=== PATIENT | male | born 2000 | race Caucasian/White ===

== ENCOUNTER → 2021-06-06 12:02 | Outpatient (BNVA) | payer OTHER, SELFPAY | PROVIDERS: Visit Provider Nurse Practitioner Psychiatric/Mental Health | DX: Z03.89 Encounter for observation for other suspected diseases and conditions ruled out (principal) | CPT/HCPCS: 80053; 80061; 83036 ==

== ENCOUNTER → 2021-08-21 14:01 | Outpatient (BNVA) | payer MEDICARE, SELFPAY | PROVIDERS: Visit Provider Nurse Practitioner Psychiatric/Mental Health | DX: F31.81 Bipolar II disorder (principal); F41.1 Generalized anxiety disorder; G80.9 Cerebral palsy, unspecified | CPT/HCPCS: 99214 ==

== ENCOUNTER → 2021-10-16 14:14 | Outpatient (BNVA) | payer MEDICARE, SELFPAY | PROVIDERS: Visit Provider Nurse Practitioner Psychiatric/Mental Health | DX: F31.81 Bipolar II disorder (principal); F41.1 Generalized anxiety disorder; G80.9 Cerebral palsy, unspecified | CPT/HCPCS: 99214 ==

== ENCOUNTER → 2021-12-04 07:38 | Outpatient (BNVA) | payer MEDICARE, SELFPAY | PROVIDERS: Visit Provider Nurse Practitioner Psychiatric/Mental Health | DX: F31.81 Bipolar II disorder (principal); F41.1 Generalized anxiety disorder; G80.9 Cerebral palsy, unspecified | CPT/HCPCS: 99214 ==

== ENCOUNTER → 2022-01-08 12:30 | Outpatient (BNVA) | payer MEDICARE, SELFPAY | PROVIDERS: Visit Provider Social Worker | DX: F41.1 Generalized anxiety disorder (principal); F31.81 Bipolar II disorder | CPT/HCPCS: 90837 ==

== ENCOUNTER → 2022-01-22 07:28 | Outpatient (BNVA) | payer MEDICARE, SELFPAY | PROVIDERS: PCP Family Medicine Adult Medicine; Visit Provider Nurse Practitioner Psychiatric/Mental Health | DX: F31.81 Bipolar II disorder; F41.1 Generalized anxiety disorder; G80.9 Cerebral palsy, unspecified; Z03.89 Encounter for observation for other suspected diseases and conditions ruled out | CPT/HCPCS: 80053; 99214 ==

== ENCOUNTER → 2022-01-29 14:15 | Outpatient (BNVA) | payer MEDICARE, SELFPAY | PROVIDERS: PCP Family Medicine Adult Medicine; Visit Provider Social Worker | DX: F41.1 Generalized anxiety disorder (principal); F31.81 Bipolar II disorder | CPT/HCPCS: 90837; 90834 ==

== ENCOUNTER → 2022-02-14 07:18 | Outpatient (BNVA) | payer MEDICARE, SELFPAY | PROVIDERS: PCP Family Medicine Adult Medicine; Visit Provider Nurse Practitioner Psychiatric/Mental Health | DX: F31.81 Bipolar II disorder (principal); F41.1 Generalized anxiety disorder; G80.9 Cerebral palsy, unspecified; Z03.89 Encounter for observation for other suspected diseases and conditions ruled out | CPT/HCPCS: 99214 ==

== ENCOUNTER → 2022-02-15 12:08 | Outpatient (BNVA) | payer MEDICARE, SELFPAY | PROVIDERS: PCP Family Medicine Adult Medicine; Visit Provider Social Worker | DX: F41.1 Generalized anxiety disorder (principal); F31.81 Bipolar II disorder | CPT/HCPCS: 90834 ==

== ENCOUNTER → 2022-03-01 12:11 | Outpatient (BNVA) | payer MEDICARE, SELFPAY | PROVIDERS: PCP Family Medicine Adult Medicine; Visit Provider Social Worker | DX: F41.1 Generalized anxiety disorder (principal); F31.81 Bipolar II disorder | CPT/HCPCS: 90837; 90834 ==

== ENCOUNTER → 2022-03-15 14:04 | Outpatient (BNVA) | payer MEDICARE, SELFPAY | PROVIDERS: PCP Family Medicine Adult Medicine; Visit Provider Social Worker | DX: F41.1 Generalized anxiety disorder (principal); F31.81 Bipolar II disorder | CPT/HCPCS: 90837; 90834 ==

== ENCOUNTER → 2022-04-05 14:11 | Outpatient (BNVA) | payer MEDICARE, SELFPAY | PROVIDERS: PCP Family Medicine Adult Medicine; Visit Provider Social Worker | DX: F41.1 Generalized anxiety disorder (principal); F31.81 Bipolar II disorder | CPT/HCPCS: 90837; 90834 ==

== ENCOUNTER → 2022-04-23 07:22 | Outpatient (BNVA) | payer MEDICARE, SELFPAY | PROVIDERS: PCP Family Medicine Adult Medicine; Visit Provider Nurse Practitioner Psychiatric/Mental Health | DX: F31.81 Bipolar II disorder (principal); F41.1 Generalized anxiety disorder; G80.9 Cerebral palsy, unspecified | CPT/HCPCS: 99214 ==

== ENCOUNTER → 2022-07-03 10:06 | Outpatient (BNVA) | payer OTHER, SELFPAY | PROVIDERS: PCP Family Medicine Adult Medicine; Visit Provider Nurse Practitioner Psychiatric/Mental Health | DX: F31.81 Bipolar II disorder (principal); F41.1 Generalized anxiety disorder; Z79.899 Other long term (current) drug therapy | CPT/HCPCS: 80061; 83036 ==

== ENCOUNTER → 2022-12-17 13:37 | Outpatient (BNVA) | payer MEDICARE, SELFPAY ==
[2022-11-05 07:23] VITALS: BP 146/88; BMI 18.5
== END ==
PROVIDERS: PCP Family Medicine Adult Medicine; Visit Provider Nurse Practitioner Psychiatric/Mental Health
DX: Z79.899 Other long term (current) drug therapy (principal)
CPT/HCPCS: 80053; 80164

== ENCOUNTER → 2023-06-04 10:21 | Outpatient (BNVA) | payer OTHER, SELFPAY ==
[2023-03-17 08:03] VITALS: BP 146/88; BMI 18.5
== END ==
PROVIDERS: PCP Family Medicine Adult Medicine; Visit Provider Nurse Practitioner Psychiatric/Mental Health
DX: F31.81 Bipolar II disorder (principal)
CPT/HCPCS: 80061; 83036

== ENCOUNTER 2023-11-06 20:07 | Emergency (ER) | payer MEDICARE, SELFPAY ==
[2023-08-18 07:44] VITALS: BP 143/90; BMI 20.7
--- NOTE | 2023-11-06 20:08 | XRR_ITS ---
PROCEDURE INFORMATION: Exam: XR Chest Exam date and time: 11/06/2023 8:20 PM Age: 22 years old Clinical indication: Fever TECHNIQUE: Imaging protocol: Radiologic exam of the chest. Views: 1 view. COMPARISON: No relevant prior studies available. FINDINGS: Lungs: Unremarkable. No consolidation. Pleural spaces: Unremarkable. No pleural effusion. No pneumothorax. Heart/Mediastinum: Unremarkable. No cardiomegaly. Bones/joints: Unremarkable. XR/XR chest 1V portable [id number] IMPRESSION: No acute findings.
[2023-11-06 20:48] VITALS: BP 154/95; PULSE 117; RESP 16; TEMP 36.9; O2SAT 97
--- NOTE | 2023-11-06 21:13 | ED_ITS ---
HPI - General Adult General: Chief complaint: General Medical Stated complaint: sob cough nausea vomit Time Seen by Provider: 11/06/23 21:09 History of Present Illness: 22-year-old male patient comes in today for complaints of cough and concerns may be developing pneumonia. Patient has been ill for 4 days and feels better but continues to have cough. Patient appears nontoxic. Patient appears in no acute distress. Review of Systems General: Reports: 10 or more systems reviewed and unremarkable except in HPI and below Resp: Reports: non-productive cough PFSH ED PFSH: Medical History (Updated 11/06/23 @ 21:14 by CARMELA Arauz) Nausea and vomiting Psychiatric care Cerebral palsy Generalized anxiety disorder Bipolar II disorder Surgical History Hx of removal of testicle Right Orchiectomy at age 3. History of dental surgery Family History Other CAD (coronary artery disease) Hypertension Social History Smoking and tobacco/nicotine status: never used tobacco/nicotine Alcohol intake: never Substance/Drug Use: never Caregiver/support person: Yes Household members: family Physical Exam Const: COMMON NORMALS: alert HENMT: COMMON NORMALS: normocephalic HEAD & SCALP: normocephalic THROAT: posterior oropharynx normal Neck/C-Spine: COMMON NORMALS: full ROM Resp: COMMON NORMALS: normal respiratory effort and clear to auscultation bilaterally AUSCULTATION: clear to auscultation bilaterally Cardio: COMMON NORMALS: regular rate and regular rhythm RATE: regular rate RHYTHM: regular rhythm GI: COMMON NORMALS: non-tender Back/Pelvis: COMMON NORMALS: thoracic and lumbar spine normal to inspection Extremity: COMMON NORMALS: no pedal edema Neuro: SENSORIUM/ORIENTATION: Yes alert Skin: COMMON NORMALS: turgor normal GENERAL SKIN EXAM: turgor normal Course Vital Signs: Vital signs: Vital Signs Temperature 98.5 F 11/06/23 20:48 Pulse Rate 117 H 11/06/23 20:48 Respiratory Rate 16 11/06/23 20:48 Blood Pressure 154/95 11/06/23 20:48 Pulse Oximetry 97 11/06/23 20:48 MDM - General Adult Medical Decision Making 22-year-old male patient comes in today for complaints of cough. Patient has been ill for about 4 to 5 days with a flulike symptoms. Patient appears nontoxic. Patient appears well. Respirations are even lungs are clear to auscultation. Abdomen soft nontender. Skin is warm and dry. Differential diagnosis includes pneumonia, postviral cough, viral syndrome. Chest x-ray was normal. Patient probably has a postviral cough which will continue to resolve over the next few days. Reassured patient courage fluids rest and follow-up. Patient reported understanding and agreed to plan. Lab Data Radiology Impressions Chest X-Ray 11/06/23 20:08 IMPRESSION: No acute findings. All radiology interpretation(s) finalized by discharge Discharge Plan Discharge Patient Disposition: Home Clinical Impression: URI (upper respiratory infection) Qualifiers: URI type: unspecified URI Qualified Code(s): J06.9 - Acute upper respiratory infection, unspecified Condition: Stable Prescriptions: No Action quetiapine [Seroquel] 25 mg tablet 25 mg PO BID PRN (Reason: anxiety/agitation) Qty: 60 3RF Rx Instructions: May take one tablet twice per day as needed for anxiety/agitation quetiapine [Seroquel] 400 mg tablet 400 mg PO .9 pm Qty: 30 4RF Rx Instructions: Take one tablet at 9 pm divalproex [Depakote] 250 mg tablet,delayed release (DR/EC) 250 mg PO .7 pm Qty: 30 4RF Rx Instructions: Take one tablet at 7 pm hydroxyzine HCl 10 mg tablet 10 mg PO Q6H PRN (Reason: nausea/vomiting) Qty: 30 0RF Discharge Orders: Discharge ED (Routine); Ordered 11/06/23 Ordered By: Michael Crespo Referrals: Gurvinder Gallegos MD [Primary Care Provider] - [facility] [Family Provider] - Discharge Diet: Usual diet Discharge Activity: Increase activity as tolerated Patient Instructions: Viral Syndrome (ED) Activity Restrictions/Additional Instructions: Drink plenty of water and fluids. Use acetaminophen and ibuprofen for pain and fever. The cough may persist for a full week after the acute phase of the flu. I would expect over the next 5 to 6 days she should start having continued improvement. Follow-up with primary care as needed. Return to ED for worsening symptoms such as high fever greater than 100.4, increased shortness of breath, or new concerns. Coding Level of Care Code ED Food And Drug Inspector for [facility] [facility]
== END 2023-11-06 21:39 | disposition home or self-care (01) ==
PROVIDERS: Emergency Provider Nurse Practitioner Family; PCP Family Medicine Adult Medicine
DX: J06.9 Acute upper respiratory infection, unspecified (principal); G80.9 Cerebral palsy, unspecified
CPT/HCPCS: 71045; 99283

== ENCOUNTER 2024-04-04 21:27 | Inpatient (IN) | payer MEDICARE, MEDICAID, SELFPAY ==
[2023-08-18 07:44] VITALS: BP 143/90; BMI 20.7
[2024-04-04 21:31] VITALS: BP 148/93; PULSE 90; RESP 18; TEMP 36.7; O2SAT 98; BMI 17.6
--- NOTE | 2024-04-04 21:34 | ED.C_ITS ---
HPI - Psych 2 General: Chief Complaint: Psychiatric Symptoms Stated Complaint: DEPRESSION Time Seen by Provider: 04/04/24 21:28 Source: patient Mode of arrival: ambulatory Limitations: no limitations History of Present Illness: 23-year-old male who states he has histo ry of severe depression he is on Seroque for this states he been having worsening depression he denies any SI or HI but states he feels like he needs to get help before he does something. He denies any worse improved factors.l Associated symptoms: Reports depression Review of Systems 2 Const: Denies: fever(s), chills, body aches or change in appetite ENMT: Denies: throat pain or dental pain Card: Denies: chest pain Resp: Denies: dyspnea GI: Denies: abdominal pain, nausea, vomiting or diarrhea : Denies: dysuria Musc: Denies: neck pain or back pain Skin/Breast: Denies: rash Neuro: Denies: headache(s) Psych: Reports: depression PFSH ED 2 PFSH: Medical History Bereavement loss of mother on 01/08/24 Nausea and vomiting Psychiatric care Cerebral palsy Generalized anxiety disorder Bipolar II disorder Surgical History Hx of removal of testicle Right Orchiectomy at age 3. History of dental surgery Family History Other CAD (coronary artery disease) Hypertension Social History Smoking and tobacco/nicotine status: never used tobacco/nicotine Alcohol intake: never Substance/Drug Use: never Caregiver/support person: Yes Household members: family Physical Exam 2 Const: COMMON NORMALS: no acute distress, patient oriented x3 and healthy appearing HENMT: COMMON NORMALS: normocephalic and atraumatic HEAD & SCALP: n ormocephalic and atraumatic Neck/C-Spine: COMMON NORMALS: full ROM and supple Chest: COMMONS NORMALS: normal inspection of the chest Resp: COMMON NORMALS: normal respiratory effort Cardio: COMMON NORMALS: regular rate, regular rhythm and No murmurs present (Cardio) RATE: regular rate RHYTHM: regular rhythm GI: COMMON NORMALS: Normal to inspection, nondistended, normoactive bowel sounds present, Soft to palpation, non-tender and no masses PALPATION: Yes Soft to palpation Extremity: COMMON NORMALS: normal to inspection and full ROM Neuro: COMMON NORMALS: patient oriented x3, moves all extremities and no focal motor deficits Psych: COMMON NORMALS: mental status grossly normal, Normal thought process present and cooperative MOOD & AFFECT: Yes depressed mood THOUGHT PROCESS: Normal thought process present Skin: COMMON NORMALS: no rashes or lesions noted and no wounds GENERAL SKIN EXAM: no rashes or lesions noted Course 2 Vital Signs: Vital signs: Vital Signs Temperature 97.8 F 04/04/24 23:10 Pulse Rate 77 04/04/24 23:10 Respiratory Rate 18 04/04/24 23:10 Blood Pressure 133/86 04/04/24 23:10 Pulse Oximetry 100 04/04/24 23:10 Oxygen Delivery Me thod Room Air 04/04/24 23:10 MDM - Psych Medical Decision Making Patient presents here with depression he voluntarily wants to be admitted for his depression he is medically cleared I spoke to psychiatrist will admit Medical Records I reviewed the patient's medical records. Lab Data I reviewed the patient's lab results. 04/04/24 22:02 04/04/24 22:02 No radiology studies performed this visit Discharge Plan Discharge Patient Disposition: Admitted As Inpatient Admit Provider: Raoul Arreola Clinical Impression: Depression Condition: Stable Coding Level of Care Code ED Supervisor [employer] for [facility]
[2024-04-04 22:13] LABS: Basophils % 0.4 %; Eosinophils # 0.1 10^3/uL (0.0-0.8); Eosinophils % 0.7 %; Hematocrit 44.2 % (37-53); Lymphocytes # 2.1 10^3/uL (0.8-4.8); Lymphocytes % 20.9 %; Mean Corpuscular HGB Conc 34.2 g/dL (30-55); Mean Corpuscular Hemoglobin 31.4 pg (27-33); Mean Corpuscular Volume 91.9 fl (82-101); Mean Platelet Volume 9.3 fL (7.4-10.4); Monocytes # 0.5 10^3/uL (0.2-0.9); Monocytes % 5.4 %; Neutrophils # 7.12 10^3/uL (1.8-7.7); Neutrophils % 72.4 %; Nucleated Red Blood Cells % 0 %; Platelet Count 286 10^3/cmm (157-399); Red Blood Count 4.81 10^6/uL (3.85-5.65); Red Cell Distribution Width 12.8 % (12.1-15.1); White Blood Count 9.83 10^3/uL (3.29-11.43)
[2024-04-04 22:23] LABS: Alanine Aminotransferase 13 U/L (0-41); Albumin Level 4.6 g/dL (3.5-5.2); Alkaline Phosphatase 103 U/L (40-130); Anion Gap 15.4 (5-19); Aspartate Amino Transferase 16 U/L (0-40); Blood Urea Nitrogen 12 mg/dL (6-20); Calcium 9.1 mg/dL (8.5-10.5); Carbon Dioxide 27 mmol/L (22-29); Chloride 105 mmol/L (98-107); Creatinine Clr Calc Pharmacy 120.0586; Globulin 3.3 g/dL (1.3-4.6); Glomerular Filtration Rate 137.4 mL/min (90-130); Glucose 86 mg/dL (65-115); Osmolality Calculated 297 mOsm/kg (285-295); Potassium 3.4 mmol/L (3.5-5.1); Sodium 144 mmol/L (136-145); Total Bilirubin 0.4 mg/dL (0.15-1.2); Total Protein 7.9 g/dL (6.6-8.7)
[2024-04-04 22:37] LABS: Acetaminophen < 5.0 ug/mL (10-30); Alcohol Level < 10 mg/dL (0-10); Salicylate < 0.3 mg/dL (3-10)
[2024-04-04 23:10] VITALS: BP 133/86; PULSE 77; RESP 18; TEMP 36.6; O2SAT 100
[2024-04-04 23:27] LABS: Amphetamines Screen Urine Negative (Negative); Barbiturates Screen Urine Negative (Negative); Benzodiazepines Screen Urine Negative (Negative); Cocaine Screen Urine Negative (Negative); Opiate Screen Urine Negative (Negative); PCP Screen Urine Negative (Negative); THC Screen Urine Negative (Negative)
[2024-04-04] MEDS: quetiapine 100 mg Tablet 400 MG PO (23:27)
[2024-04-04] MEDS: divalproex ER 250 mg Tablet (24H) PO (23:27)
[2024-04-05 06:00] VITALS: BP 97/63; PULSE 72; RESP 16; O2SAT 98
--- NOTE | 2024-04-05 08:34 | PC.NURSE ---
Patient denies avh and si/hi. He states his depression this morning is somewhere in the middle. Patient says at one time he did take prozac for depression, but that it has been some time since then.
[2024-04-05 14:00] VITALS: BP 119/77; PULSE 96; RESP 18; TEMP 36.6; O2SAT 97
--- NOTE | 2024-04-05 16:13 | W.PM.NPUH&PS ---
Providers/Chief Complaint Admitting Physician: Raoul Arreola MD Primary Care Provider: Gurvinder Gallegos MD Chief Complaint: DEPRESSION HPI NPU History of Present Illness Luis Tapia is a 23 year old male with a history of bipolar 2 disorder who presented to the emergency department stating that he was having worsening depression and stated that he was not able to handle things at home. Patient was admitted to the neuropsychiatric unit for further evaluation and treatment. He reports that he has been more depressed since his mother in December of this year. He reports that he has been isolating himself. He states that he has been having more sadness as he cries all of the time. He reports that that he has low energy and states that his mood has been getting worse nearly every week despite him reporting compliance with his medications. He denies any drug or alcohol use. He was admitted to the neuropsychiatric unit for further evaluation and treatment. He had reported that he had thoughts of suicide and stated that he did not care if he was alive or . He reports that his mood has been down for several months. He had endorsed having periods of time in the past where he would be up for 3 to 4 days at a time and had racing thoughts and increased periods of irritability. Previous records had indicated that the patient had periods of time where he would have decreased need for sleep, productive speech and increased irritability and violent outburst along with destruction of property. He had denied any hypomanic symptoms recently. He reports no change in appetite. He does report that he frequently feels tired and does not wake up feeling refreshed. He reports that he will sleep all day. He reports that he has been crying more frequently. He denies any psychotic symptoms. He denies any history of recent destruction of property. Inpatient psychiatric history: Patient reports 3 previous inpatient psychiatric hospitalizations to having occurred in 2017 on the neuropsychiatric unit here in [facility]. Outpatient psychiatric history: He follows Maddie Venegas for medication management at [facility]. Current diagnoses includes intermittent explosive disorder, and bipolar 2 disorder. Drug and alcohol history: None reported Medical history: Cerebral palsy Surgical history: Right orchiectomy, history of dental surgery, history of tendon elongation in March 2011 Current medications: Seroquel 400 mg at night Allergies: No known drug allergies Legal history: admits past history of arrested for domestic violence in 2017, completed successfully 40 hours of community service and anger management classes and paid $500 fine. Family psychiatric history: Maternal: Grandmother-Bipolar Mother-Depression, anxiety, Panic attacks with Agoraphobia, PTSD ,Twin sister-depression and anxiety ,Brother-depression and anxiety Social history: Patient reports that he had been born in [place] and was raised by his mother. He had reported that he had been diagnosed with cerebral palsy. He had received special education services and received his diploma from [employer] [employer] later while receiving additional services for his learning disability. He has 1 older brother. He currently lives in [facility] with his sister. He had reported living with his mother most of his life until her in December 2023. He had minimized any history of sexual physical or emotional abuse. 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 Meds NPU Home Medications Medication Instructions Recorded Confirmed Last Taken Type hydroxyzine HCl 10 mg tablet 10 mg PO Q6H PRN nausea/vomiting 03/04/24 04/04/24 Unknown Rx #90 tabs quetiapine 25 mg tablet (Seroquel) 25 mg PO BID PRN anxiety/agitation 03/17/24 04/04/24 Unknown Rx #60 tabs quetiapine 400 mg tablet (Seroquel) 400 mg PO .9 pm #30 tabs 03/17/24 04/04/24 Unknown Rx divalproex 250 mg tablet,extended 250 mg PO BEDTIME 04/04/24 04/04/24 Unknown History release 24 hr (Depakote ER) Allergies Allergy/AdvReac Type Severity Reaction Status Date / Time No Known Allergies Allergy Verified 04/04/24 21:35 PFS NPU PFSH: Medical History Bereavement loss of mother on 01/08/24 Nausea and vomiting Psychiatric care Cerebral palsy Generalized anxiety disorder Bipolar II disorder Surgical History Hx of removal of testicle Right Orchiectomy at age 3. History of dental surgery Family History Other CAD (coronary artery disease) Hypertension Social History Smoking and tobacco/nicotine status: never used tobacco/nicotine Alcohol intake: never Substance/Drug Use: never Caregiver/support person: Yes Household members: family Mental Status Exam MSE Comments: Patient was alert and oriented to person place and time. There was extreme psychomotor retardation noted. He had fleeting eye contact. His speech was monotone and normal in volume with decreased rate. There was no evidence of any abnormal involuntary motor movements tics or tremors appreciated. His mood was described as depressed. His affect was restricted in range and mood congruent. His thought process was linear logical and goal-directed. His thought content showed no evidence of active homicidal or suicidal ideation. His attention span appeared poor. There was no clear evidence of delusional thinking. He did not appear to be responding to internal stimuli. His insight is impaired. His judgment is poor. His impulse control appeared limited. His recent and remote memory appear grossly intact. Vitals/I&O/Wt Last Vital Signs Temp 97.8 F 04/05/24 14:00 Pulse 96 04/05/24 14:00 Resp 18 04/05/24 14:00 BP 119/77 04/05/24 14:00 Pulse Ox 97 04/05/24 14:00 O2 Del Method Room Air 04/05/24 14:00 04/05/24 04/05/24 04/05/24 06:59 14:59 22:59 Intake Total 960 / 960 Balance 960 / 960 Weight last 48 hrs Weight 52.617 kg Data NPU 04/04/24 22:02 04/04/24 22:02 A&P Assessment and plan (1) Depression: (2) Bipolar II disorder: Plan 23-year-old male with CP with past history of hypomanic symptoms currently endorsing severe depression appears to be worse since the of his mother in December 2023. #1. ?Engage patient in individual milieu and group therapy. #2?? Recommend sober living treatment at the highest level of care to which the patient is willing to commit #3??? Restart Seroquel 400mg at night and add Wellbutrin xl 150mg daily to target depression. #4?? TO-15 minute checks? #5?? Will attempt to gather collateral information Involuntary Hold Information 96 Hour Hold: 96 Hour Involuntary Admission: No Attestations NPU Medical Necessity Statement*: Inpatient hospitalization is medically necessary and deemed to ?be ?the clinically appropriate intervention ?at this time.? We will monitor/initiate medications and make changes as indicated.? The patient will be in the hospital for over 2 midnights.? The patient?s likely length of stay 7-10 days. Coding Level of Care Code Acute Code for [facility] Fwd Diagnoses Depression F32.A Bipolar II disorder F31.81
[2024-04-05] MEDS: quetiapine 100 mg Tablet 400 MG PO (20:32)
[2024-04-05 21:02] VITALS: BP 119/80; PULSE 88; RESP 18; TEMP 36.4; O2SAT 98
[2024-04-05] MEDS: hyDROXYzine 25 mg Capsule 50 MG PO (21:26)
[2024-04-05] MEDS: trazodone 50 mg Tablet PO (21:26)
[2024-04-06 06:00] VITALS: BP 117/80; PULSE 96; RESP 17; TEMP 36.5; O2SAT 97
[2024-04-06] MEDS: buPROPion XL (24 HR) 150 mg Tablet PO (09:27)
[2024-04-06] MEDS: OLANZapine 5 mg ODT PO (12:51)
[2024-04-06] MEDS: hyDROXYzine 25 mg Capsule 50 MG PO (13:24)
[2024-04-06 14:00] VITALS: BP 109/73; PULSE 96; RESP 16; TEMP 36.4; O2SAT 97
--- NOTE | 2024-04-06 15:10 | P.NPUPN_ITS ---
Subjective NPU 2 Subjective: 23-year-old male with bipolar disorder a dmitted with depression and suicidal ideation. The patient had continued to report that he was grieving the of his mother earlier this year. He had appeared quite anxious on the unit. He continued to report being depressed. He had reported struggles with feeling lonely and feeling bored. He had stated that his energy had been low. He had acknowledged having periods of aggression and agitation with decreased need for sleep as previously stated suggestive of ney. The patient was compliant on the milieu but appeared to perseverate about needing to go home despite stating that he was having thoughts of hurting himself. Mental Status Exam 2 MSE Comments: Patient was alert and oriented to person place and time. There was extreme psychomotor retardation noted. He had fleeting eye contact. His speech was monotone and normal in volume with decreased rate. There was no evidence of any abnormal involuntary motor movements tics or tremors appreciated. His mood was described as depressed. His affect was restricted in range and mood congruent. His thought process was linear logical and goal-directed. His thought content showed no evidence of active homicidal although he reported passive suicidal thoughts. His attention span appeared poor. There was no clear evidence of delusional thinking. He did not appear to be responding to internal stimuli. His insight is impaired. His judgment is poor. His impulse control appeared impaired. His recent and remote memory appear grossly intact. Vitals/I&O/Wt Last Vital Signs Temp 97.5 F L 04/06/24 14:00 Pulse 96 04/06/24 14:00 Resp 16 04/06/24 14:00 BP 109/73 04/06/24 14:00 Pulse Ox 97 04/06/24 14:00 O2 Del Method Room Air 04/06/24 14:00 Weight last 48 hrs Weight 52.617 kg Data NPU 04/04/24 22:02 04/04/24 22:02 A&P Assessment and plan (1) Depression: (2) Bipolar II disorder: Plan 23-year-old male with CP with past history of hypomanic symptoms currently endorsing severe depression appears to be worse since the of his mother in December 2023. #1. ?Engage patient in individual milieu and group therapy. #2?? Recommend sober living treatment at the highest level of care to which the patient is willing to commit #3???Increase seroquel to 500mg at night and continue Wellbutrin xl 150mg daily to target depression. #4?? TO-15 minute checks? #5?? Will attempt to gather collateral information Involuntary Hold Information 2 96 Hour Hold: 96 Hour Involuntary Admission: No Attestations NPU 2 Medical Necessity Statement*: Inpatient hospitalization is medically necessary and deemed to ?be ?the clinically appropriate intervention ?at this time.? We will monitor/initiate medications and make changes as indicated.? ? The patient?s likely length of stay is 3-5 days. Coding Level of Care Code Acute Code for [facility] Fwd Diagnoses Depression F32.A Bipolar II disorder F31.81
[2024-04-06] MEDS: CLONazepam 0.5 mg Tablet PO (15:41)
[2024-04-06 20:00] VITALS: BP 144/84; PULSE 97; RESP 20; TEMP 36.7; O2SAT 99
[2024-04-06] MEDS: quetiapine 100 mg Tablet 500 MG PO (20:47)
[2024-04-06] MEDS: trazodone 50 mg Tablet PO (20:47)
[2024-04-06 22:00] VITALS: BP 144/84; PULSE 97; RESP 20; TEMP 36.7; O2SAT 99
[2024-04-07 06:00] VITALS: BP 108/66; PULSE 86; RESP 18; TEMP 36.4; O2SAT 98
[2024-04-07] MEDS: buPROPion XL (24 HR) 150 mg Tablet PO (08:12)
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
[2024-04-07 13:27] VITALS: BP 108/66; PULSE 86; RESP 18; TEMP 36.4; O2SAT 98
--- NOTE | 2024-04-07 13:29 | DCPLANNER ---
IMM completed 04/07/24 @ 1:28pm. Pt was given a copy of his rights and he stated he understood his rights.
== END 2024-04-07 14:44 | disposition home or self-care (01) | DRG 885 ==
LOC: ER 22:16 → NP 22:30
PROVIDERS: Admitting Provider Psychiatry & Neurology Psychiatry; Emergency Provider Emergency Medicine; PCP Family Medicine Adult Medicine; Visit Provider Psychiatry & Neurology Psychiatry
DX: F31.81 Bipolar II disorder (principal); Z63.4 Disappearance and death of family member
CPT/HCPCS: 36415; 80053; 80306; 80307; 85025; 97150; 97165; 99285

== ENCOUNTER 2024-04-23 07:06 | Inpatient (IN) | payer MEDICARE, MEDICAID, SELFPAY ==
[2023-08-18 07:44] VITALS: BP 143/90; BMI 20.7
[2024-04-23 07:06] VITALS: BP 131/81; PULSE 95; TEMP 36.8; O2SAT 98; BMI 17.6
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
[2024-04-23] MEDS: divalproex DR 250 mg Tablet PO ×2 (07:59→19:27)
[2024-04-23] MEDS: quetiapine 25 mg Tablet 50 MG PO (07:59)
[2024-04-23 08:08] LABS: Basophils % 0.4 %; Eosinophils # 0.1 10^3/uL (0.0-0.8); Eosinophils % 0.9 %; Hematocrit 42.5 % (37-53); Lymphocytes # 1.1 10^3/uL (0.8-4.8); Lymphocytes % 10.4 %; Mean Corpuscular HGB Conc 33.9 g/dL (30-55); Mean Corpuscular Hemoglobin 31.4 pg (27-33); Mean Corpuscular Volume 92.6 fl (82-101); Mean Platelet Volume 9.3 fL (7.4-10.4); Monocytes # 0.8 10^3/uL (0.2-0.9); Monocytes % 7.5 %; Neutrophils # 8.26 10^3/uL (1.8-7.7); Neutrophils % 80.6 %; Nucleated Red Blood Cells % 0 %; Platelet Count 291 10^3/cmm (157-399); Red Blood Count 4.59 10^6/uL (3.85-5.65); Red Cell Distribution Width 12.5 % (12.1-15.1); White Blood Count 10.25 10^3/uL (3.29-11.43)
[2024-04-23 08:27] LABS: Alanine Aminotransferase 12 U/L (0-41); Albumin Level 4.4 g/dL (3.5-5.2); Alkaline Phosphatase 105 U/L (40-130); Anion Gap 15.5 (5-19); Aspartate Amino Transferase 15 U/L (0-40); Blood Urea Nitrogen 15 mg/dL (6-20); Calcium 9.2 mg/dL (8.5-10.5); Carbon Dioxide 26 mmol/L (22-29); Chloride 103 mmol/L (98-107); Creatinine Clr Calc Pharmacy 140.0684; Globulin 3.2 g/dL (1.3-4.6); Glomerular Filtration Rate 164.2 mL/min (90-130); Glucose 106 mg/dL (65-115); Osmolality Calculated 293 mOsm/kg (285-295); Potassium 3.5 mmol/L (3.5-5.1); Sodium 141 mmol/L (136-145); Total Bilirubin 0.5 mg/dL (0.15-1.2); Total Protein 7.6 g/dL (6.6-8.7)
[2024-04-23 08:38] LABS: Acetaminophen < 5.0 ug/mL (10-30); Salicylate < 0.3 mg/dL (3-10)
--- NOTE | 2024-04-23 08:50 | PC.NURSE ---
PATIENT RESTING COMFORTABLY IN BED WITH EVEN AND UNLABORED RESPIRATIONS.
--- NOTE | 2024-04-23 09:13 | PC.NURSE ---
[facility] CALLED AND STATED THAT PATIENT IS WILLING TO GO TO [facility]. DFS WOULD LIKE HOSPITAL HELP IN GETTING PATIENT TO FILL OUT PAPERWORK FOR FACILITY. THIS NURSE VERBALIZED THAT PATIENT WAS BEING ADMITTED TO [facility] AND WOULD RELAY INFORMATION AND START PROCESS. [phone],
--- NOTE | 2024-04-23 10:13 | PC.NURSE ---
96 hour hold rights read and reviewed with patient. Patient verbalized understandings. Copy of rights given to patient.
[2024-04-23 10:38] VITALS: BP 113/68; PULSE 72; RESP 18; TEMP 36.6; O2SAT 98
[2024-04-23 14:00] VITALS: BP 119/74; PULSE 118; RESP 20; TEMP 36.9; O2SAT 99
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
--- NOTE | 2024-04-23 19:24 | PC.NURSE ---
Pt's temperature is elevated during vital signs and tech rounding, Pt came to desk and also mentioned his throat is sore. Pt has slightly muffled voice. RN to assess further. Pt given PRN tylenol to treat elevated temperature.
[2024-04-23] MEDS: acetaminophen 325 mg Tablet 650 MG PO (19:27)
[2024-04-23 20:06] LABS: Rapid Strep A Test Negative (Negative)
[2024-04-23 20:23] VITALS: TEMP 37.6
[2024-04-23 21:46] VITALS: BP 113/73; PULSE 122; RESP 18; TEMP 38.4; O2SAT 98
[2024-04-23 22:12] LABS: Adenovirus Not Detected (NOT DETECT); Chlamydia Pneumoniae Not Detected (NOT DETECT); Coronavirus 229E,HKU1,NL63,OC4 Not Detected (NOT DETECT); Human Metapneumovirus Not Detected (NOT DETECT); Human Rhinovirus/Enterovirus Not Detected (NOT DETECT); Influenza A Not Detected (NOT DETECT); Influenza A H1 Not Detected (NOT DETECT); Influenza A H1-2009 Not Detected (NOT DETECT); Influenza A H3 Not Detected (NOT DETECT); Influenza B Not Detected (NOT DETECT); Mycoplasma Pneumoniae Not Detected (NOT DETECT); Parainfluenza Virus Type 1 Not Detected (NOT DETECT); Parainfluenza Virus Type 2 Not Detected (NOT DETECT); Parainfluenza Virus Type 3 Not Detected (NOT DETECT); Parainfluenza Virus Type 4 Not Detected (NOT DETECT); Respiratory Syncytial Virus A Not Detected (NOT DETECT); Respiratory Syncytial Virus B Not Detected (NOT DETECT)
[2024-04-23 22:22] LABS: SARS-COV-2 Detected (NOT DETECT)
--- NOTE | 2024-04-24 00:02 | PC.NURSE ---
Still awaiting transfer in-house/discharge orders for this Pt to be transported to another unit. Pt observed to be sleeping in his Pt bed. Pt has no needs at this time
--- NOTE | 2024-04-24 00:59 | XRR_ITS ---
PROCEDURE INFORMATION: Exam: XR Chest Exam date and time: 04/24/2024 11:47 AM Age: 23 years old Clinical indication: Cough; Additional info: Fever, covid TECHNIQUE: Imaging protocol: Radiologic exam of the chest. Views: 1 view. COMPARISON: CR XR chest 1V portable [id number] 11/06/2023 8:20 PM FINDINGS: Lungs: Unremarkable. No consolidation or mass. Pleural spaces: Unremarkable. No pleural effusion. No pneumothorax. Heart/Mediastinum: Unremarkable. No cardiomegaly. Bones/joints: Unremarkable. XR/XR chest 1V portable [id number] IMPRESSION: No acute findings.
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
--- NOTE | 2024-04-24 02:07 | PC.NURSE ---
This RN from NPU gave a nursing handoff report to BRANT Brown/STAY CUTTER (?) from [facility].
[2024-04-24 02:45] VITALS: PULSE 119; RESP 20; TEMP 38.1; O2SAT 98
--- NOTE | 2024-04-24 02:54 | PC.NURSE ---
Patient off unit to med surg with RN and security
[2024-04-24 03:00] VITALS: BP 109/59; PULSE 122; RESP 18; TEMP 38; O2SAT 98
[2024-04-24] MEDS: acetaminophen 325 mg Tablet 650 MG PO (04:04)
[2024-04-24 04:20] VITALS: BP 100/44; PULSE 116; RESP 22; TEMP 38.7; O2SAT 97
[2024-04-24 06:00] LABS: C Reactive Protein 27.9 mg/L (0.0-4.9)
--- NOTE | 2024-04-24 10:05 | P.PN_ITS ---
Subjective 2 Subjective: Patient is not requiring oxygen Tachycardic fever Requiring one-to-one supervision Patient not endorsing chest pain, diarrhea, endorsing muscle aches Vitals/I&O/Wt Last Vital Signs Temp 101.7 F H 04/24/24 04:20 Pulse 116 H 04/24/24 04:20 Resp 22 H 04/24/24 04:20 BP 100/44 04/24/24 04:20 Pulse Ox 97 04/24/24 04:20 O2 Del Method Room Air 04/24/24 04:20 04/23/24 04/24/24 04/24/24 22:59 06:59 14:59 Intake Total 240 / 240 Balance 240 / 240 Weight last 48 hrs Weight 54.885 kg Weight 52.617 kg Physical Exam 2 Narrative: Pleasant cooperative laying supine Has reported allergy Muscle mass loss Sarcopenia GCS 15 Nonfocal neuroexam S1, S2 tachycardia Clinically looks dehydrated Abdomen soft Data 04/23/24 08:00 04/23/24 08:00 Micro: Microbiology 04/24/24 07:35 Blood Culture - Preliminary Blood SPECIMEN COLLECTED 04/24/24 07:40 Blood Culture - Preliminary Blood SPECIMEN COLLECTED A&P Assessment and plan (1) Bipolar II disorder: (2) Generalized anxiety disorder: (3) Nausea and vomiting: Qualifiers: Vomiting type: psychogenic vomiting Qualified Code(s): 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.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 (4) COVID-19: (5) Cerebral palsy: Qualifiers: Cerebral palsy type: unspecified type Qualified Code(s): G80.9 - Cerebral palsy, unspecified (6) Bereavement: Plan COVID-19 Not requiring oxygen I will start Decadron, patient was dehydrated Start IV fluids for 10 hours Low blood pressure noted as well I will also add Augmentin for prophylactic bacterial infection Full code Regular diet History of cerebral palsy no active pain His senior living placement will be delayed he has to remain afebrile for 48 hours without antipyretics noted to go back to facility Attestations 2 Medical Necessity Statement*: Continue medical management Diagnoses Bipolar II disorder F31.81 Generalized anxiety disorder F41.1 Psychogenic vomiting with nausea F50.89 Vomiting type: psychogenic vomiting COVID-19 U07.1 Cerebral palsy, unspecified type G80.9 Cerebral palsy type: unspecified type Bereavement Z63.4
[2024-04-24] MEDS: dexamethasone 10 mg/mL INJ 6 MG PO (11:11)
[2024-04-24] MEDS: sodium chloride 0.9% 1,000 ML 100 ML IV ×2 (11:11→20:36)
[2024-04-24 12:00] VITALS: BP 87/45; PULSE 114; RESP 17; TEMP 37.6; O2SAT 98
[2024-04-24 16:54] LABS: Bilirubin Urine Neg (Negative); Blood Urine Trace (Negative); Glucose Urine UA Norm (Normal); Ketones Urine 1+ (Negative); Leukocyte Esterase Urine Negative (Negative); Nitrate Urine Negative (Negative); Protein Urine Trace (Negative); Specific Gravity, Urine 1.015 (1.005-1.030); Urine Appearance Clear (CLEAR); Urine Color Dark Yellow (Yellow); Urobilinogen Urine 1 mg/dL (Negative); pH Urine 6.5 (5-7)
[2024-04-24 16:55] LABS: Add Urine Culture? No; Add Urine Microscopic? YES; Bacteria Urine TRACE /hpf; Mucus Urine 2+ /hpf; RBC Urine RARE /hpf (0-2); WBC Urine 0-4 /hpf (0-5)
[2024-04-24 17:44] VITALS: BP 109/71; PULSE 99; RESP 16; TEMP 37; O2SAT 97
[2024-04-24] MEDS: amoxicillin-clav 875-125 mg Tablet 1 TAB PO (17:44)
[2024-04-24] MEDS: divalproex DR 250 mg Tablet PO (17:44)
--- NOTE | 2024-04-24 19:08 | W.PM.NPUPNS ---
Subjective NPU Subjective: 23-year-old male with bipolar disorder admitted with depression and suicidal ideation with noncompliance to his medication and currently awaiting placement at Residential facility. Patient has COVID and was seen on Med/Surgical unit. The patient reported no side effects. He reported his mood has been better. He had reported that he struggled with being compliant with his medications despite it helping him. Mental Status Exam MSE Comments: This is an underweight white male in hospital bed with adequate grooming and limited eye contact. No abnormal movements except for a somewhat characteristic stride consistent with CP with limited contracture notable in hands. Mild psychomotor retardation noted. Cooperative with exam in mild distress. Speech was slightly decreased rate and volume with some characteristic fullness of tongue. Mood described as good. His affect was flat. Thought process organized. Thought content: Patient denies suicidal or homicidal ideation, there were no delusions reported or noted, he denied any auditory or visual hallucinations. Attention and concentration appeared intact and memory appeared mostly reliable but none were formally tested. He is alert and oriented x 3. Insight and judgment appear fair impulse control is limited. Vitals/I&O/Wt Last Vital Signs Temp 98.6 F 04/24/24 17:44 Pulse 99 04/24/24 17:44 Resp 16 04/24/24 17:44 BP 109/71 04/24/24 17:44 Pulse Ox 97 04/24/24 17:44 O2 Del Method Room Air 04/24/24 17:44 04/24/24 04/24/24 04/24/24 06:59 14:59 22:59 Intake Total 480 / 480 540 / 1020 Balance 480 / 480 540 / 1020 Weight last 48 hrs Weight 54.885 kg Weight 52.617 kg Data NPU 04/23/24 08:00 04/23/24 08:00 Micro: Microbiology 04/24/24 07:35 Blood Culture - Preliminary Blood SPECIMEN COLLECTED 04/24/24 07:40 Blood Culture - Preliminary Blood SPECIMEN COLLECTED Microbiology 04/24/24 07:35 Blood Blood Culture - Preliminary SPECIMEN COLLECTED 04/24/24 07:40 Blood Blood Culture - Preliminary SPECIMEN COLLECTED A&P Assessment and plan (1) Depression: (2) Bipolar II disorder: (3) Generalized anxiety disorder: (4) Bereavement: (5) Cerebral palsy: Qualifiers: Cerebral palsy type: unspecified type Qualified Code(s): G80.9 - Cerebral palsy, unspecified Plan 23-year-old male with CP with a significant history of mental health issues which have reportedly gotten worse since the of his mother in December 2023 returns after having been off of his medication for an unclear amount of time since his discharge a couple weeks ago who presents to be restarted on his medications and likely transfer to his residential care facility that has been obtained. The patient appears to struggle with maintaining a regular pattern of taking his medication, attributing this to forgetfulness and tiredness. This has developed into a bad habit of medication management. The patient's main issue appears to be irregular intake of his prescribed medication, which has led to conflicts and aggressive behavior. He has been accepted into an independent living facility, which may provide a more structured environment for him. 1. ?Increase seroquel to 300mg at night with plan to increase to 400mg tommorow. Continue Depakote. 2.?? Will attempt to gather collateral information 3.???[facility] bed available now. 4.?? Continue every 15 minute checks for safety. Involuntary Hold Information 96 Hour Hold: 96 Hour Involuntary Admission: Yes 96 Hour Hold Ending Date: 04/30/24 96 Hour Hold Ending Time: 09:45 Attestations NPU Medical Necessity Statement*: Inpatient hospitalization is medically necessary and the clinically appropriate intervention at this time.? We will transfer to inpatient psychiatric unit once medically determined with patient having covid. Coding Level of Care Code Acute Code for Chg Fwd Diagnoses Depression F32.A Bipolar II disorder F31.81 Generalized anxiety disorder F41.1 Bereavement Z63.4 Cerebral palsy, unspecified type G80.9 Cerebral palsy type: unspecified type
[2024-04-24 19:37] VITALS: BP 118/78; PULSE 94; RESP 19; TEMP 36.8; O2SAT 95
[2024-04-24] MEDS: quetiapine 100 mg Tablet 300 MG PO (20:35)
[2024-04-25 03:05] LABS: Basophils % 0.2 %; Lymphocytes # 0.6 10^3/uL (0.8-4.8); Lymphocytes % 10.2 %; Mean Corpuscular HGB Conc 34.2 g/dL (30-55); Mean Corpuscular Hemoglobin 31.4 pg (27-33); Mean Corpuscular Volume 91.8 fl (82-101); Mean Platelet Volume 9.7 fL (7.4-10.4); Monocytes # 0.8 10^3/uL (0.2-0.9); Monocytes % 13.2 %; Neutrophils # 4.77 10^3/uL (1.8-7.7); Neutrophils % 76.1 %; Nucleated Red Blood Cells % 0 %; Platelet Count 232 10^3/cmm (157-399); Red Blood Count 4.14 10^6/uL (3.85-5.65); Red Cell Distribution Width 12.3 % (12.1-15.1); White Blood Count 6.27 10^3/uL (3.29-11.43)
[2024-04-25 03:28] LABS: Alanine Aminotransferase 9 U/L (0-41); Albumin Level 3.9 g/dL (3.5-5.2); Alkaline Phosphatase 79 U/L (40-130); Anion Gap 12.6 (5-19); Aspartate Amino Transferase 13 U/L (0-40); Blood Urea Nitrogen 11 mg/dL (6-20); Calcium 8.6 mg/dL (8.5-10.5); Carbon Dioxide 25 mmol/L (22-29); Chloride 106 mmol/L (98-107); Creatinine Clr Calc Pharmacy 175.3271; Globulin 2.7 g/dL (1.3-4.6); Glomerular Filtration Rate 202.6 mL/min (90-130); Glucose 125 mg/dL (65-115); Osmolality Calculated 291 mOsm/kg (285-295); Potassium 3.6 mmol/L (3.5-5.1); Sodium 140 mmol/L (136-145); Total Bilirubin 0.3 mg/dL (0.15-1.2); Total Protein 6.6 g/dL (6.6-8.7)
[2024-04-25 03:54] VITALS: BP 99/62; PULSE 93; RESP 18; TEMP 36.6; O2SAT 93
[2024-04-25 07:07] VITALS: BP 120/82; PULSE 79; RESP 18; O2SAT 98
[2024-04-25] MEDS: sodium chloride 0.9% 1,000 ML 100 ML IV ×2 (09:40→18:03)
[2024-04-25] MEDS: dexamethasone 10 mg/mL INJ 6 MG PO (09:42)
[2024-04-25] MEDS: amoxicillin-clav 875-125 mg Tablet 1 TAB PO ×2 (09:42→18:02)
[2024-04-25 10:40] VITALS: BP 101/64; PULSE 89; RESP 17; TEMP 37.3; O2SAT 97
--- NOTE | 2024-04-25 13:52 | PM.PN ---
Subjective Subjective: seen this am no acute events overnight pt on room air Vitals/I&O/Wt Last Vital Signs Temp 99.2 F 04/25/24 10:40 Pulse 89 04/25/24 10:40 Resp 17 04/25/24 10:40 BP 101/64 04/25/24 10:40 Pulse Ox 97 04/25/24 10:40 O2 Del Method Room Air 04/25/24 10:40 04/24/24 04/25/24 04/25/24 22:59 06:59 14:59 Intake Total 1481.667 / 2207.154 2009 / 2961.667 480 / 480 Balance 1481.667 / 7330.857 8925 / 2961.667 480 / 480 Weight last 48 hrs Weight 54.885 kg Weight 54.885 kg Physical Exam Narrative: Pleasant cooperative laying supine Has reported allergy Muscle mass loss Sarcopenia GCS 15 Nonfocal neuroexam S1, S2 tachycardia Clinically looks dehydrated Abdomen soft Data 04/25/24 02:26 04/25/24 02:26 Micro: Microbiology 04/24/24 07:40 Blood Culture - Preliminary Blood NEGATIVE TO DATE 04/24/24 07:35 Blood Culture - Preliminary Blood NEGATIVE TO DATE A&P Assessment and plan (1) Bipolar II disorder: (2) Generalized anxiety disorder: (3) Nausea and vomiting: Qualifiers: Vomiting type: psychogenic vomiting Qualified Code(s): F50.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 (4) COVID-19: (5) Cerebral palsy: Qualifiers: Cerebral palsy type: unspecified type Qualified Code(s): G80.9 - Cerebral palsy, unspecified (6) Bereavement: Plan COVID-19 Not requiring oxygen Contninue decadron dc iv fluids, pt appears euvolemic Low blood pressure noted as well I will also add Augmentin for prophylactic bacterial infection Full code Regular diet History of cerebral palsy no active pain His residential placement will be delayed he has to remain afebrile for 48 hours without antipyretics noted to go back to facility Pt 97% on room air. We may dc decadron in AM. Attestations Medical Necessity Statement*: Continue medical management Diagnoses Bipolar II disorder F31.81 Generalized anxiety disorder F41.1 Psychogenic vomiting with nausea F50.89 Vomiting type: psychogenic vomiting COVID-19 U07.1 Cerebral palsy, unspecified type G80.9 Cerebral palsy type: unspecified type Bereavement Z63.4
[2024-04-25 14:00] VITALS: BP 105/69; PULSE 59; RESP 18; TEMP 36.9; O2SAT 95
--- NOTE | 2024-04-25 17:53 | P.NPUPN_ITS ---
Subjective NPU 2 Subjective: 23-year-old male with bipolar disorder a dmitted with depression and suicidal ideation with noncompliance to his medication and currently awaiting placement at Residential facility. He reported no side effects from his medication. He reported that he was feeling better. He stated that he had been off of his medications for only 1 week after his discharge last month from the inpatient unit. He had reported that the medication was better for his behavior and stated that he understood that he needed to be living somewhere else. Mental Status Exam 2 MSE Comments: This is an underweight white male in hospital bed with adequate grooming and Improved eye contact. No abnormal movements except for a somewhat characteristic stride consistent with CP with limited contracture notable in hands. Mild psychomotor retardation noted. Cooperative with exam in no acute distress. Speech was slightly decreased rate and normal in volume with some characteristic fullness of tongue. Mood described as better. His affect was brighter today. Thought process organized. Thought content: Patient denies suicidal or homicidal ideation, there were no delusions reported or noted, he denied any auditory or visual hallucinations. Attention and concentration appeared intact and memory appeared mostly reliable but none were formally tested. He is alert and oriented x 3. Insight and judgment appear fair impulse control is limited. Vitals/I&O/Wt Last Vital Signs Temp 98.5 F 04/25/24 14:00 Pulse 59 L 04/25/24 14:00 Resp 18 04/25/24 14:00 BP 105/69 04/25/24 14:00 Pulse Ox 95 04/25/24 14:00 O2 Del Method Room Air 04/25/24 14:00 04/25/24 04/25/24 04/25/24 06:59 14:59 22:59 Intake Total 1000 / 2961.667 480 / 480 240 / 720 Balance 1000 / 2961.667 480 / 480 240 / 720 Weight last 48 hrs Weight 54.885 kg Weight 54.885 kg Data NPU 04/25/24 02:26 04/25/24 02:26 Micro: Microbiology 04/23/24 19:40 Group A Streptococcus Rapid Screen - Preliminary Throat 04/24/24 07:40 Blood Culture - Preliminary Blood NEGATIVE TO DATE 04/24/24 07:35 Blood Culture - Preliminary Blood NEGATIVE TO DATE Microbiology 04/23/24 19:40 Throat Group A Streptococcus Rapid Screen - Preliminary 04/24/24 07:40 Blood Blood Culture - Preliminary NEGATIVE TO DATE 04/24/24 07:35 Blood Blood Culture - Preliminary NEGATIVE TO DATE A&P Assessment and plan (1) Bipolar II disorder: (2) Generalized anxiety disorder: (3) Nausea and vomiting: Qualifiers: Vomiting type: psychogenic vomiting Qualified Code(s): 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.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 The patient appears to struggle with maintaining a regular pattern of taking his medication, attributing this to forgetfulness and tiredness. This has developed into a bad habit of medication management. The patient's main issue appears to be irregular intake of his prescribed medication, which has led to conflicts and aggressive behavior. He has been accepted into an independent living facility, which may provide a more structured environment for him. 1. ?Increase seroquel to 400mg tonight. Continue Depakote as prescribed. 2.?? Will attempt to gather collateral information 3.???[facility] bed available now-he may be ready for discharge tommorow either to home briefly or directly to new Residential facility. 4.?? Continue every 15 minute checks for safety. Involuntary Hold Information 2 96 Hour Hold: 96 Hour Involuntary Admission: Yes 96 Hour Hold Ending Date: 04/30/24 96 Hour Hold Ending Time: 09:45 Attestations NPU 2 Medical Necessity Statement*: Patient likely ready for immediate placement at [facility] if medically stable and cleared to go to new placement. Patient positive for covid. Coding Level of Care Code Acute Code for g Fwd Diagnoses Bipolar II disorder F31.81 Generalized anxiety disorder F41.1 Psychogenic vomiting with nausea F50.89 Vomiting type: psychogenic vomiting COVID-19 U07.1 Cerebral palsy, unspecified type G80.9 Cerebral palsy type: unspecified type Bereavement Z63.4 Depression F32.A
[2024-04-25] MEDS: divalproex DR 250 mg Tablet PO (18:03)
[2024-04-25] MEDS: quetiapine 100 mg Tablet 400 MG PO (20:14)
[2024-04-25 20:42] VITALS: BP 120/76; PULSE 76; RESP 16; TEMP 36.8; O2SAT 97
[2024-04-26 00:22] VITALS: BP 124/73; PULSE 64; RESP 16; TEMP 36.7; O2SAT 97
[2024-04-26] MEDS: sodium chloride 0.9% 1,000 ML 100 ML IV (04:13)
[2024-04-26 04:26] VITALS: BP 105/70; PULSE 61; RESP 16; TEMP 36.7; O2SAT 98
[2024-04-26 05:22] VITALS: BMI 19.0
[2024-04-26 07:39] VITALS: BP 111/69; PULSE 63; RESP 20; TEMP 36.4; O2SAT 98
[2024-04-26] MEDS: amoxicillin-clav 875-125 mg Tablet 1 TAB PO ×2 (08:34→18:32)
--- NOTE | 2024-04-26 10:41 | PC.NURSE ---
phoned pharmacy to confirm that IM/IV Decadron is ok to give po, as per the order. Ciaran berman.
[2024-04-26] MEDS: dexamethasone 10 mg/mL INJ 6 MG PO (10:45)
[2024-04-26 12:14] VITALS: BP 106/68; PULSE 69; RESP 18; TEMP 36.4; O2SAT 98
--- NOTE | 2024-04-26 12:14 | P.PN_ITS ---
Subjective 2 Subjective: Patient has been afebrile for last 24 hours Will need at least 48 hours afebrile state before we can send him back to [facility] Vitals/I&O/Wt Last Vital Signs Temp 97.6 F 04/26/24 07:39 Pulse 63 04/26/24 07:39 Resp 20 H 04/26/24 07:39 BP 111/69 04/26/24 07:39 Pulse Ox 98 04/26/24 07:39 O2 Del Method Room Air 04/26/24 07:39 04/25/24 04/26/24 04/26/24 22:59 06:59 14:59 Intake Total 1078.333 / 8865.022 7377 / 2558.333 120 / 120 Output Total 550 / 550 Balance 1078.333 / 1558.333 450 / 2008.333 120 / 120 Weight last 48 hrs Weight 56.835 kg Weight 54.885 kg Physical Exam 2 Narrative: Awake and alert Nonfocal neuroexam Signs of dehydration improving No active discomfort Not requiring oxygen Pleasant and cooperative Data 04/25/24 02:26 04/25/24 02:26 Micro: Microbiology 04/23/24 19:40 Group A Streptococcus Rapid Screen - Final Throat 04/24/24 07:40 Blood Culture - Preliminary Blood NEGATIVE TO DATE 04/24/24 07:35 Blood Culture - Preliminary Blood NEGATIVE TO DATE A&P Assessment and plan (1) Bipolar II disorder: (2) Generalized anxiety disorder: (3) Nausea and vomiting: Qualifiers: Vomiting type: psychogenic vomiting Qualified Code(s): F50.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 (4) COVID-19: (5) Cerebral palsy: Qualifiers: Cerebral palsy type: unspecified type Qualified Code(s): G80.9 - Cerebral palsy, unspecified (6) Bereavement: Plan Plan to send him to [facility] by tomorrow if he remains afebrile for 48 hours without use of Tylenol Not requiring oxygen Continue Decadron for now Discontinue IV fluids patient tolerating diet, Cerebral palsy with contracture no significant discomfort at this point Mild COVID-19 related pneumonia continue empirical antibiotic coverage DVT prophylaxis: Lovenox Attestations 2 Medical Necessity Statement*: Continue medical management Diagnoses Bipolar II disorder F31.81 Generalized anxiety disorder F41.1 Psychogenic vomiting with nausea F50.89 Vomiting type: psychogenic vomiting COVID-19 U07.1 Cerebral palsy, unspecified type G80.9 Cerebral palsy type: unspecified type Bereavement Z63.4
--- NOTE | 2024-04-26 13:47 | PC.SOCIAL ---
IMM Update pg 2 of IMM updated and reviewed w/ patient. Copy provided copy dated, initialed and placed in chart.
[2024-04-26] MEDS: enoxaparin 40 mg/0.4 mL Syringe SUBCUT (14:07)
[2024-04-26] MEDS: divalproex DR 250 mg Tablet PO (18:32)
--- NOTE | 2024-04-26 19:23 | P.NPUPN_ITS ---
Subjective NPU 2 Subjective: 23-year-old male with bipolar disorder a dmitted with depression and suicidal ideation with noncompliance to his medication and currently awaiting placement at Residential facility. No significant behavioral complaints appreciated. He was reporting that he was ready to go to his residential treatment facility when medically cleared. Mental Status Exam 2 MSE Comments: This is an underweight white male in hospital bed with adequate grooming and Improved eye contact. No abnormal movements except for a somewhat characteristic stride consistent with CP with limited contracture notable in hands. Mild psychomotor retardation noted. Cooperative with exam in no acute distress. Speech was slightly decreased rate and normal in volume with some characteristic fullness of tongue. Mood described as good. His affect was brighter today. Thought process organized. Thought content: Patient denies suicidal or homicidal ideation, there were no delusions reported or noted, he denied any auditory or visual hallucinations. Attention and concentration appeared intact and memory appeared mostly reliable but none were formally tested. He is alert and oriented x 3. Insight and judgment appear fair impulse control is limited. Vitals/I&O/Wt Last Vital Signs Temp 97.6 F 04/26/24 12:14 Pulse 69 04/26/24 12:14 Resp 18 04/26/24 12:14 BP 106/68 04/26/24 12:14 Pulse Ox 98 04/26/24 12:14 O2 Del Method Room Air 04/26/24 12:14 04/26/24 04/26/24 04/26/24 06:59 14:59 22:59 Intake Total 1000 / 2558.333 798.333 / 798.333 360 / 1158.333 Output Total 550 / 550 Balance 450 / 2008.333 798.333 / 798.333 360 / 1158.333 Weight last 48 hrs Weight 56.835 kg Weight 54.885 kg Data NPU 04/25/24 02:26 04/25/24 02:26 Micro: Microbiology 04/23/24 19:40 Group A Streptococcus Rapid Screen - Final Throat Microbiology 04/23/24 19:40 Throat Group A Streptococcus Rapid Screen - Final A&P Assessment and plan (1) Bipolar II disorder: (2) Generalized anxiety disorder: (3) Nausea and vomiting: Qualifiers: Vomiting type: psychogenic vomiting Qualified Code(s): F50.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 The patient appears to struggle with maintaining a regular pattern of taking his medication, attributing this to forgetfulness and tiredness. This has developed into a bad habit of medication management. The patient's main issue appears to be irregular intake of his prescribed medication, which has led to conflicts and aggressive behavior. He has been accepted into an independent living facility, which may provide a more structured environment for him. 1. ?Continue seroquel to 400mg at night Continue Depakote as prescribed. 2.???F bed available now-he may be ready for discharge tommorow either to home briefly or directly to new Residential facility. 3.?? Continue every 15 minute checks for safety. Involuntary Hold Information 2 96 Hour Hold: 96 Hour Involuntary Admission: Yes 96 Hour Hold Ending Date: 04/30/24 96 Hour Hold Ending Time: 09:45 Attestations NPU 2 Medical Necessity Statement*: NA-patient not requiring inpatient psychiatric hospitalization once medically cleared. Coding Level of Care Code Acute Code for [facility] Diagnoses Bipolar II disorder F31.81 Generalized anxiety disorder F41.1 Psychogenic vomiting with nausea F50.89 Vomiting type: psychogenic vomiting COVID-19 U07.1 Cerebral palsy, unspecified type G80.9 Cerebral palsy type: unspecified type Bereavement Z63.4 Depression F32.A
[2024-04-26 20:05] VITALS: BP 115/69; PULSE 82; RESP 18; TEMP 36.7; O2SAT 98
[2024-04-26] MEDS: quetiapine 100 mg Tablet 400 MG PO (21:27)
[2024-04-27 00:08] VITALS: BP 107/68; PULSE 69; RESP 18; TEMP 36.4; O2SAT 97
[2024-04-27 04:10] VITALS: BP 112/70; PULSE 58; RESP 17; TEMP 36.4; O2SAT 97
[2024-04-27 08:40] VITALS: BP 131/72; PULSE 70; RESP 18; TEMP 36.4; O2SAT 97
[2024-04-27] MEDS: amoxicillin-clav 875-125 mg Tablet 1 TAB PO ×2 (09:10→18:08)
[2024-04-27] MEDS: dexamethasone 10 mg/mL INJ 6 MG PO (09:19)
--- NOTE | 2024-04-27 09:35 | P.PN_ITS ---
Subjective 2 Subjective: Patient endorsing feeling better Afebrile Blood pressure stable Off IV fluids One-to-one supervision Vitals/I&O/Wt Last Vital Signs Temp 97.6 F 04/27/24 08:40 Pulse 70 04/27/24 08:40 Resp 18 04/27/24 08:40 BP 131/72 04/27/24 08:40 Pulse Ox 97 04/27/24 08:40 O2 Del Method Room Air 04/27/24 08:40 04/26/24 04/27/24 04/27/24 22:59 06:59 14:59 Intake Total 360 / 1158.333 360 / 1518.333 480 / 480 Balance 360 / 1158.333 360 / 1518.333 480 / 480 Weight last 48 hrs Weight 57.017 kg Weight 56.835 kg Physical Exam 2 Narrative: Signs of dehydration better Awake and alert Currently on room air No audible stridor or wheezing S1, S2 Euvolemic Data 04/25/24 02:26 04/25/24 02:26 Micro: Microbiology 04/23/24 19:40 Group A Streptococcus Rapid Screen - Final Throat A&P Assessment and plan (1) Bipolar II disorder: (2) Generalized anxiety disorder: (3) Nausea and vomiting: Qualifiers: Vomiting type: psychogenic vomiting Qualified Code(s): F50.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 (4) COVID-19: (5) Cerebral palsy: Qualifiers: Cerebral palsy type: unspecified type Qualified Code(s): G80.9 - Cerebral palsy, unspecified (6) Bereavement: Plan Mild COVID-19 Diagnosed with COVID 04/23 Has been afebrile for 48 hours Discontinue Decadron, not requiring oxygen 10-day wait period To send him to residential Will touch base with psychiatrist to see if patient could be discharged home with sister Patient still requiring one-to-one supervision I have discontinued IV fluids I will discontinue empirical antibiotic coverage by tomorrow Discontinue Decadron as well Patient clinically doing very well Attestations 2 Medical Necessity Statement*: Continue medical management Diagnoses Bipolar II disorder F31.81 Generalized anxiety disorder F41.1 Psychogenic vomiting with nausea F50.89 Vomiting type: psychogenic vomiting COVID-19 U07.1 Cerebral palsy, unspecified type G80.9 Cerebral palsy type: unspecified type Bereavement Z63.4
--- NOTE | 2024-04-27 17:09 | P.NPUPN_ITS ---
Subjective NPU 2 Subjective: 23-year-old male with bipolar disorder a dmitted with depression and suicidal ideation with noncompliance to his medication and currently awaiting placement at Residential facility. Patient was seen on the medical surgical floor. He reported no thoughts of hurting himself or others. He was compliant and cooperative while resting with no recent spikes in fever reported. No side effects from medication. Mental Status Exam 2 MSE Comments: This is an underweight white male in hospital bed with adequate grooming and improved eye contact. No abnormal movements except for a somewhat characteristic stride consistent with CP with limited contracture notable in hands. Mild psychomotor retardation noted. Cooperative with exam in no acute distress. Speech was improving in rate and normal in volume with some characteristic fullness of tongue. Mood described as good. His affect was brighter today. Thought process organized. Thought content: Patient denies suicidal or homicidal ideation, there were no delusions reported or noted, he denied any auditory or visual hallucinations. Attention and concentration appeared intact and memory appeared mostly reliable but none were formally tested. He is alert and oriented x 3. Insight and judgment appear fair; impulse control is limited. Vitals/I&O/Wt Last Vital Signs Temp 97.6 F 04/27/24 08:40 Pulse 70 04/27/24 08:40 Resp 18 04/27/24 08:40 BP 131/72 04/27/24 08:40 Pulse Ox 97 04/27/24 08:40 O2 Del Method Room Air 04/27/24 08:40 04/27/24 04/27/24 04/27/24 06:59 14:59 22:59 Intake Total 360 / 1518.333 960 / 960 Balance 360 / 1518.333 960 / 960 Weight last 48 hrs Weight 57.017 kg Weight 56.835 kg Data NPU 04/25/24 02:26 04/25/24 02:26 A&P Assessment and plan (1) Bipolar II disorder: (2) Generalized anxiety disorder: (3) Nausea and vomiting: Qualifiers: Vomiting type: psychogenic vomiting Qualified Code(s): F50.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 The patient appears to struggle with maintaining a regular pattern of taking his medication, attributing this to forgetfulness and tiredness. This has developed into a bad habit of medication management. The patient's main issue appears to be irregular intake of his prescribed medication, which has led to conflicts and aggressive behavior. He has been accepted into an independent living facility, which may provide a more structured environment for him. 1. ?Continue seroquel to 400mg at night Continue Depakote as prescribed. 2.???[facility] bed available now-but may require brief return to legal guardians home. Will attempt to contact the patient's [facility] to clarify. 3.?? Continue every 15 minute checks for safety. Involuntary Hold Information 2 96 Hour Hold: 96 Hour Involuntary Admission: Yes 96 Hour Hold Ending Date: 04/30/24 96 Hour Hold Ending Time: 09:45 Attestations NPU 2 Medical Necessity Statement*: NA-patient not requiring inpatient psychiatric hospitalization once medically cleared. Coding Level of Care Code Acute Code for [facility] Diagnoses Bipolar II disorder F31.81 Generalized anxiety disorder F41.1 Psychogenic vomiting with nausea F50.89 Vomiting type: psychogenic vomiting COVID-19 U07.1 Cerebral palsy, unspecified type G80.9 Cerebral palsy type: unspecified type Bereavement Z63.4 Depression F32.A
[2024-04-27 17:23] VITALS: BP 116/73; PULSE 70; RESP 19; TEMP 36.3; O2SAT 95
[2024-04-27] MEDS: divalproex DR 250 mg Tablet PO (18:08)
[2024-04-27 19:13] VITALS: BP 133/79; PULSE 83; RESP 16; TEMP 36.6; O2SAT 97
[2024-04-27] MEDS: quetiapine 100 mg Tablet 400 MG PO (20:53)
[2024-04-28 06:00] VITALS: BP 118/69; PULSE 70; RESP 15; TEMP 36.6; O2SAT 97
[2024-04-28] MEDS: amoxicillin-clav 875-125 mg Tablet 1 TAB PO (08:21)
[2024-04-28 09:00] VITALS: BP 115/72; PULSE 70; RESP 16; TEMP 36.6; O2SAT 97
--- NOTE | 2024-04-28 09:17 | P.DS_ITS ---
Discharge Providers Date of Admission: 04/23/24 10:06 Date of Discharge: April 28, 2024 Attending Provider at Admission: Raoul Arreola MD Attending Provider at Discharge: Raoul Arreola MD Primary Care Provider: Gurvinder Gallegos MD Diagnoses at Discharge Discharge Diagnosis (1) Bipolar II disorder: Status: Chronic (2) Generalized anxiety disorder: Status: Chronic (3) Nausea and vomiting: Status: Acute Qualifiers: Vomiting type: psychogenic vomiting Qualified Code(s): F50.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 (4) COVID-19: Status: Acute (5) Cerebral palsy: Status: Chronic Qualifiers: Cerebral palsy type: unspecified type Qualified Code(s): G80.9 - Cerebral palsy, unspecified (6) Bereavement: Status: Acute Permanent problem details: loss of mother on 01/08/24 (7) Depression: Status: Resolved Reason for Visit Reason for Visit: altercation, e Hospital Course Hospital Course 23-year-old male who was admitted to psych unit on 96-hour hold for worsening of mental health issues which reportedly gotten worse after of his mother in December 2023, patient has been off his medications for unclear timeline, patient struggles to stay compliant with his medications, he is forgetful, has history of cerebral palsy, able to take care of himself, sometimes struggles with conflicting and aggressive behavior. He was admitted to [facility] for febrile events related to COVID-19 he did not require oxygen, he was given Decadron and Augmentin. Hemodynamically he remained stable, cultures remain negative. He is being discharged to [facility] he has remained afebrile for 72 hours before his discharge from the hospital. He has been accepted at [facility] [place]. 96- hour hold will be rescinded by Dr. David Physical Exam Narrative: Awake and alert Euvolemic GCS 15 S1, S2 Currently on room air [facility] Discharge Data Studies Completed and Pending Completed Studies During Hospitalization Category Date Time Status CXRP [XR chest 1V portable 82043] Routine Exams 04/24/24 00:59 Completed Pending at discharge Category Date Time Status Blood Culture Stat Lab 04/24/24 07:35 Results Radiology Impressions Chest X-Ray 04/24/24 00:59 IMPRESSION: No acute findings. Laboratory Results WBC 6.27 10^3/uL (3.29-11.43) 04/25/24 02:26 RBC 4.14 10^6/uL (3.85-5.65) 04/25/24 02:26 Hgb 13.00 g/dL (11.27-16.99) 04/25/24 02:26 Hct 38.0 % (37-53) 04/25/24 02:26 MCV 91.8 fl (82-101) 04/25/24 02:26 MCH 31.4 pg (27-33) 04/25/24 02:26 MCHC 34.2 g/dL (30-55) 04/25/24 02:26 RDW 12.3 % (12.1-15.1) 04/25/24 02:26 Plt Count 232 10^3/cmm (157-399) 04/25/24 02:26 MPV 9.7 fL (7.4-10.4) 04/25/24 02:26 Neut % (Auto) 76.1 % 04/25/24 02:26 Lymph % (Auto) 10.2 % 04/25/24 02:26 Becker % (Auto) 13.2 % 04/25/24 02:26 Eos % (Auto) 0.0 % 04/25/24 02:26 Baso % (Auto) 0.2 % 04/25/24 02:26 Neut # (Auto) 4.77 10^3/uL (1.8-7.7) 04/25/24 02:26 Lymph # (Auto) 0.6 10^3/uL (0.8-4.8) L 04/25/24 02:26 Becker # (Auto) 0.8 10^3/uL (0.2-0.9) 04/25/24 02:26 Eos # (Auto) 0.0 10^3/uL (0.0-0.8) 04/25/24 02:26 Baso # (Auto) 0.0 10^3/uL (0.0-0.1) 04/25/24 02:26 Nucleated RBC % (auto) 0 % 04/25/24 02:26 Nucleated RBCs # 0.0 /100WBC 04/25/24 02:26 Sodium 140 mmol/L (136-145) 04/25/24 02:26 Potassium 3.6 mmol/L (3.5-5.1) 04/25/24 02:26 Chloride 106 mmol/L (98-107) 04/25/24 02:26 Carbon Dioxide 25 mmol/L (22-29) 04/25/24 02:26 Anion Gap 12.6 (5-19) 04/25/24 02:26 BUN 11 mg/dL (6-20) 04/25/24 02:26 Creatinine 0.5 mg/dL (0.7-1.2) L 04/25/24 02:26 GFR Calculation 202.6 mL/min (90-130) H 04/25/24 02:26 Glucose 125 mg/dL (65-115) H 04/25/24 02:26 Calculated Osmolality 291 mOsm/kg (285-295) 04/25/24 02:26 Calcium 8.6 mg/dL (8.5-10.5) 04/25/24 02:26 Total Bilirubin 0.3 mg/dL (0.15-1.2) 04/25/24 02:26 AST 13 U/L (0-40) 04/25/24 02:26 ALT 9 U/L (0-41) 04/25/24 02:26 Alkaline Phosphatase 79 U/L (40-130) 04/25/24 02:26 C-Reactive Protein 27.9 mg/L (0.0-4.9) H 04/24/24 05:19 Total Protein 6.6 g/dL (6.6-8.7) 04/25/24 02:26 Albumin 3.9 g/dL (3.5-5.2) 04/25/24 02:26 Globulin 2.7 g/dL (1.3-4.6) 04/25/24 02:26 Urine Color Dark yellow (Yellow) A 04/24/24 16:10 Urine Appearance Clear (CLEAR) 04/24/24 16:10 Urine pH 6.5 (5-7) 04/24/24 16:10 Ur Specific Ramona 1.015 (1.005-1.030) 04/24/24 16:10 Urine Protein Trace (Negative) 04/24/24 16:10 Urine Glucose (UA) Norm (Normal) 04/24/24 16:10 Urine Ketones 1+ (Negative) H 04/24/24 16:10 Urine Blood Trace (Negative) H 04/24/24 16:10 Urine Nitrate Negative (Negative) 04/24/24 16:10 Urine Bilirubin Neg (Negative) 04/24/24 16:10 Urine Urobilinogen 1 mg/dL (Negative) H 04/24/24 16:10 Ur Leukocyte Esterase Negative (Negative) 04/24/24 16:10 Urine RBC Rare /hpf (0-2) 04/24/24 16:10 Urine WBC 0-4 /hpf (0-5) H 04/24/24 16:10 Ur Squamous Epith Cells None /hpf (0-5) 04/24/24 16:10 Amorphous Sediment Not Reportable 04/24/24 16:10 Urine Bacteria Trace /hpf (NONE) 04/24/24 16:10 Urine Mucus 2+ /hpf 04/24/24 16:10 Salicylates < 0.3 mg/dL (3-10) L 04/23/24 08:00 Acetaminophen < 5.0 ug/mL (10-30) L 04/23/24 08:00 Adenovirus (PCR) Not detected (NOT DETECT) 04/23/24 19:40 C. pneumoniae DNA (PCR) Not detected (NOT DETECT) 04/23/24 19:40 Coronavirus 229E (PCR) Not detected (NOT DETECT) 04/23/24 19:40 Human Metapneumovir PCR Not detected (NOT DETECT) 04/23/24 19:40 Influenza A (H1) PCR Not detected (NOT DETECT) 04/23/24 19:40 Influ A (H1/09) PCR Not detected (NOT DETECT) 04/23/24 19:40 Influenza A (H3) PCR Not detected (NOT DETECT) 04/23/24 19:40 Influenza Type A (PCR) Not detected (NOT DETECT) 04/23/24 19:40 Influenza Type B (PCR) Not detected (NOT DETECT) 04/23/24 19:40 M. pneumoniae (PCR) Not detected (NOT DETECT) 04/23/24 19:40 Parainfluenza 1 (PCR) Not detected (NOT DETECT) 04/23/24 19:40 Parainfluenza 2 (PCR) Not detected (NOT DETECT) 04/23/24 19:40 Parainfluenza 3 (PCR) Not detected (NOT DETECT) 04/23/24 19:40 Parainfluenza 4 (PCR) Not detected (NOT DETECT) 04/23/24 19:40 RSV Type A (PCR) Not detected (NOT DETECT) 04/23/24 19:40 RSV Type B (PCR) Not detected (NOT DETECT) 04/23/24 19:40 Entero/Rhino (PCR) Not detected (NOT DETECT) 04/23/24 19:40 SARS-CoV-2 (PCR) Detected (NOT DETECT) A 04/23/24 19:40 Group A Strep Rapid Negative (Negative) 04/23/24 19:40 Vitals Last Vital Signs Temp 97.8 F 04/28/24 06:00 Pulse 70 04/28/24 06:00 Resp 15 04/28/24 06:00 BP 118/69 04/28/24 06:00 Pulse Ox 97 04/28/24 06:00 O2 Del Method Room Air 04/28/24 06:00 Discharge Plan Discharge Patient Disposition: Xfer Other Condition: Stable Prescriptions: Continued Seroquel 400 mg tablet 400 mg PO .9 pm Qty: 30 3RF quetiapine [Seroquel] 25 mg tablet 25 mg PO BID PRN (Reason: anxiety/agitation) Qty: 60 3RF divalproex [Depakote] 250 mg tablet,delayed release (DR/EC) 250 mg PO .7 pm Qty: 30 3RF hydroxyzine HCl 10 mg tablet 10 mg PO Q6H PRN (Reason: nausea/vomiting) Qty: 90 1RF Discharge Orders: Discharge Order (Routine); Ordered 04/28/24 Ordered By: Quiana Abel Referrals: Jorge Ye [facility] [Other] Sd Mcgowan [Therapist] - 04/28/24 ESTUARDO Mcgarry, S[employer]IOR [employer] ACCOUNTANT [Nurse Practitioner] - Miri Knapp PMHNP [Staff Physician] - 05/05/24 Discharge Attestations Time Spent in Discharge Care*: greater than 30 min Quality Metrics Clinical Quality Measures [ No reported AMI, CVA or VTE this stay] Coding Level of Care Code Acute Code for [facility]wd Diagnoses Bipolar II disorder F31.81 Generalized anxiety disorder F41.1 Psychogenic vomiting with nausea F50.89 Vomiting type: psychogenic vomiting COVID-19 U07.1 Cerebral palsy, unspecified type G80.9 Cerebral palsy type: unspecified type Bereavement Z63.4 Depression F32.A
[2024-04-28] MEDS: enoxaparin 40 mg/0.4 mL Syringe SUBCUT (11:42)
[2024-04-28 11:55] VITALS: BP 113/66; PULSE 70; RESP 16; TEMP 36.7; O2SAT 97
--- NOTE | 2024-04-28 12:27 | PC.SOCIAL ---
IMM Update pg 2 of IMM updated and reviewed w/ patient. Copy provided and copy dated, initialed and placed in chart.
[2024-04-28 14:19] VITALS: BP 113/66; PULSE 70; RESP 16; TEMP 36.7; O2SAT 97
== END 2024-04-28 14:15 | disposition home or self-care (01) | DRG 178 ==
LOC: ER 07:41 → NP 10:06 → MEDSURG 04-24 01:23
PROVIDERS: Student in an Organized Health Care Education/Training Program; Admitting Provider Psychiatry & Neurology Psychiatry; Emergency Provider Family Medicine; PCP Family Medicine Adult Medicine; Visit Provider Psychiatry & Neurology Psychiatry
DX: U07.1 COVID-19 (principal); F31.81 Bipolar II disorder; R45.851 Suicidal ideations; F41.1 Generalized anxiety disorder; F50.89 Other specified eating disorder; G80.9 Cerebral palsy, unspecified; Z63.4 Disappearance and death of family member; Z91.148 Patient's other noncompliance with medication regimen for other reason
CPT/HCPCS: 36415; 71045; 80053; 80307; 81001; 85025; 86140; 87040; 87081; 87486; 87581; 87633; 87880; 96372; 97165; 99285; J1100; J1650; J7030

== ENCOUNTER 2024-04-28 20:18 | Emergency (ER) | payer MEDICARE, MEDICAID, SELFPAY ==
[2023-08-18 07:44] VITALS: BP 143/90; BMI 20.7
[2024-04-28 20:20] VITALS: BP 145/103; PULSE 92; RESP 15; TEMP 36.4; O2SAT 98; BMI 24.3
--- NOTE | 2024-04-28 20:38 | ED.C_ITS ---
HPI - Psych General: Chief Complaint: Psychiatric Symptoms Stated Complaint: anger outburst Time Seen by Provider: 04/28/24 20:21 History of Present Illness: Patient presents here from [facility] for behavioral issues. Per the nurses notes one of the staff over [place] said that he was getting agitated and aggressive and angry over there and she wanted him to come over here to be checked out. He did does not have any meds as needed for anger outburst or to calm him down. Patient was just recently in here for similar instances and got diagnosed with COVID and had his meds adjusted by our psychiatrist. She was discharged today and has been over there less than 3 hours. Upon talking to the patient patient has no issues no concerns and no complaints. Review of Systems General: Reports: 10 or more systems reviewed and unremarkable except in HPI and below PFSH ED PFSH: Medical History Bereavement loss of mother on 01/08/24 Nausea and vomiting Psychiatric care Cerebral palsy Generalized anxiety disorder Bipolar II disorder Surgical History Hx of removal of testicle Right Orchiectomy at age 3. History of dental surgery Family History Other CAD (coronary artery disease) Hypertension Social History Smoking and tobacco/nicotine status: never used tobacco/nicotine Alcohol intake: never Substance/Drug Use: never Caregiver/support person: Yes Household members: family Physical Exam Const: COMMON NORMALS: no acute distress, average body habitus, patient orien antionette x3, no limitations, healthy appearing, alert and well nourished HENMT: COMMON NORMALS: normocephalic, atraumatic, hearing grossly normal bilat erally, external ears normal, Normal external nose present and moist oral mucous membranes HEAD & SCALP: normocephalic and atraumatic NOSE: Normal external nose present EXTERNAL EAR: Yes external ears normal Neck/C-Spine: COMMON NORMALS: no JVD Chest: COMMONS NORMALS: normal inspection of the chest and normal palpation of entire chest wall Resp: COMMON NORMALS: normal respiratory effort, No retractions, No use of accessory muscles and clear to auscultation bilaterally AUSCULTATION: clear to auscultation bilaterally Cardio: COMMON NORMALS: no JVD, regular rate, regular rhythm, S1 normal heart sound present, S2 normal heart sound present, No gallops present (Cardio), No clicks present (Cardio), No murmurs present (Cardio) and No rub (Cardio) RATE: regular rate RHYTHM: regular rhythm HEART SOUNDS: S1 normal heart sound present and S2 normal heart sound present GI: COMMON NORMALS: Normal to inspection, nondistended, normoactive bowel sounds present, Soft to palpation, non-tender, No hepatosplenomegaly present and no masses PALPATION: Yes Soft to palpation and Yes No hepatosplenomegaly present Neuro: COMMON NORMALS: patient oriented x3 SENSORIUM/ORIENTATION: Yes alert Course 2 Vital Signs: Vital signs: Vital Signs Temperature 97.6 F 04/28/24 20:20 Pulse Rate 92 04/28/24 20:20 Respiratory Rate 15 04/28/24 20:20 Blood Pressure 145/103 04/28/24 20:20 Pulse Oximetry 98 04/28/24 20:20 Oxygen Delivery Me thod Room Air 04/28/24 20:20 MDM - Psych Medical Decision Making Patient is brought here by EMS for anger issues and outbursts. Patient appears nonviolent nonaggressive and not agitated here. Patient has no complaints or concerns at this time. Patient will be placed on hydroxyzine 25 mg 3 times daily as needed agitation. Patient is his own guardian so he can decide to take it or not. Patient be discharged back to the facility. Medical Records I reviewed the patient's medical records. Lab Data I reviewed the patient's lab results. No radiology studies performed this visit Discharge Plan Discharge Patient Disposition: Home Clinical Impression: Acute anxiety, Agitation Condition: Stable Prescriptions: New hydroxyzine HCl 25 mg tablet 25 mg PO Q8H PRN (Reason: Agitation or anxiety) Qty: 30 0RF No Action Seroquel 400 mg tablet 400 mg PO .9 pm Qty: 30 3RF quetiapine 400 mg tablet 400 mg PO BEDTIME 30 Days Qty: 30 1RF divalproex 250 mg Tablet,Delayed Release (Dr/Ec) 250 mg PO 1900 30 Days Qty: 30 1RF Discharge Orders: Discharge ED (Routine); Ordered 04/28/24 Ordered By: Nikos Swan Referrals: Gurvinder Gallegos MD [Primary Care Provider] - 1 week Patient Instructions: Anxiety (ED) Activity Restrictions/Additional Instructions: Given evaluated for anxiety and agitation. You are not displaying either of these in the ER. You have been prescribed hydroxyzine to take 3 times a day as needed for anxiety or agitation. If you are feeling agitated or anxiety he will be there if you want to take it. Please follow-up with your family practitioner within the next 7 to 10 days for your behavioral health person for further evaluation and treatment. Coding Level of Care Code ED Import Dispatcher for Fuentes Davis
--- NOTE | 2024-04-28 20:48 | PC.NURSE ---
pt facility communication this nurse spoke with Irena, staff, at [facility]. she stated that pt was angry and wanted to use the phone and since he couldn't at that time, he began 'yelling, screaming, cussing' had a 'complete meltdown', stated she was scared and locked herself in a room and called 911. this nurse also spoke with Michael, (owner oral surgeon?) and she stated that she wanted pt put under a 96 hour hold d/t this outburst and not having his full 96 hour hold done prior to discharge. this nurse stated that if there is no immediate threat to his person or anyone else, then we can't hold someone. stated understanding. this nurse took a phone into the room and spoke with patient with michael on the phone. pt stated willingness to go back to facility and stated what he would do if he felt angry again. michael stated agreeance with the arrangement and stated she would find someone to come pick him up since [facility] is not running. this nurse spoke to dr. lowe and he stated he would give pt some prn meds for while the pharmacies are closed during the holiday.
[2024-04-28 21:25] VITALS: BP 133/104; PULSE 89; RESP 16; O2SAT 98
[2024-04-28] MEDS: hyDROXYzine 25 mg Capsule PO ×4 (21:28→22:29)
[2024-04-28 22:29] VITALS: PULSE 88; RESP 14; O2SAT 98
== END 2024-04-28 22:30 | disposition home or self-care (01) ==
PROVIDERS: Emergency Provider Emergency Medicine; PCP Family Medicine Adult Medicine
DX: R45.1 Restlessness and agitation (principal); F41.9 Anxiety disorder, unspecified; G80.9 Cerebral palsy, unspecified
CPT/HCPCS: 99285

== ENCOUNTER 2024-04-30 16:03 | Inpatient (IN) | payer MEDICARE, MEDICAID, SELFPAY ==
[2024-04-30 08:38] VITALS: BP 143/90; BMI 20.7
[2024-04-30 16:08] VITALS: BP 131/85; PULSE 95; RESP 18; TEMP 36.7; O2SAT 98
--- NOTE | 2024-04-30 16:27 | ED_ITS ---
HPI - General Adult General: Chief complaint: General Medical Stated complaint: psych combative with staff Time Seen by Provider: 04/30/24 16:11 Source: EMS Mode of arrival: EMS Limitations: no limitations History of Present Illness: 23-year-old male who had recently been a dmitted here to our psych reece I admitted him little over a week ago patient has a history of CP along with some agitation anxiety his sister is his guardian we had found placement for him at an assisted living [facility]. He was just transferred there 2 days ago he states that he was upset and angry today because they will not let him use his phone call anytime he wants it to call his sister and was mad and wanted to come appear patient here is now calm and cooperative he denies any SI or HI at this time. Associated symptoms: Deny chest pain, dyspnea, headache(s), nausea, rash or vomiting Review of Systems Const: Denies: fever(s), chills, body aches or change in appetite ENMT: Denies: throat pain or dental pain Card: Denies: chest pain Resp: Denies: dyspnea GI: Denies: abdominal pain, nausea, vomiting or diarrhea Musc: Denies: neck pain or back pain Skin/Breast: Denies: rash Neuro: Denies: headache(s) Psych: Reports: mood swings; Denies: depression PFSH ED PFSH: Medical History COVID-19 Bereavement loss of mother on 01/08/24 Nausea and vomiting Psychiatric care Cerebral palsy Generalized anxiety disorder Bipolar II disorder Surgical History Hx of removal of testicle Right Orchiectomy at age 3. History of dental surgery Family History Other CAD (coronary artery disease) Hypertension Social History Smoking and tobacco/nicotine status: never used tobacco/nicotine Alcohol intake: never Substance/Drug Use: never Caregiver/support person: Yes Household members: family Physical Exam Const: COMMON NORMALS: no acute distress, patient oriented x3 and healthy appearing HENMT: COMMON NORMALS: normocephalic and atraumatic HEAD & SCALP: normocephalic and atraumatic Eye: COMMON NORMALS: Equal, round and reactive pupils present and EOMs intact bilaterally PUPIL: Yes Equal, round and reactive pupils present Neck/C-Spine: COMMON NORMALS: full ROM and supple Chest: COMMONS NORMALS: normal inspection of the chest and normal palpation of entire chest wall Resp: COMMON NORMALS: normal respiratory effort, No retractions, No use of accessory muscles and clear to auscultation bilaterally AUSCULTATION: clear to auscultation bilaterally Cardio: COMMON NORMALS: regular rate, regular rhythm and No murmurs present (Cardio) RATE: regular rate RHYTHM: regular rhythm GI: COMMON NORMALS: Normal to inspection, nondistended, normoactive bowel sounds present, Soft to palpation, non-tender and no masses PALPATION: Yes Soft to palpation Extremity: COMMON NORMALS: normal to inspection and full ROM Neuro: COMMON NORMALS: patient oriented x3, moves all extremities and no focal motor deficits Psych: COMMON NORMALS: mental status grossly normal, Normal thought process present and cooperative THOUGHT PROCESS: Normal thought process present Skin: COMMON NORMALS: no rashes or lesions noted and no wounds GENERAL SKIN EXAM: no rashes or lesions noted Course Vital Signs: Vital signs: Vital Signs Temperature 98.1 F 04/30/24 16:08 Pulse Rate 96 04/30/24 17:10 Respiratory Rate 18 04/30/24 16:08 Blood Pressure 131/85 04/30/24 16:08 Pulse Oximetry 98 04/30/24 17:10 Oxygen Delivery Me thod Room Air 04/30/24 17:10 [facility] - General Adult Medical Decision Making Patient presents here after being agitated at the assisted living. Patient was sent here had recently been in admitted to our psych reece here at assisted living is refusing to take him back I did speak to the sister as well who is refusing to take him back I spoke to Dr. Lloyd who will admit at this time we will try to find placement for him. Medical Records I reviewed the patient's medical records. No radiology studies performed this visit Discharge Plan Discharge Patient Disposition: Admitted As Inpatient Admit Provider: Benito Aguilar Clinical Impression: Agitation Condition: Stable Discharge Orders: Discharge ED (Routine); Ordered 04/30/24 Ordered By: Lino Andrea Discharge Diet: Advance as tolerated Discharge Activity: Resume usual activity Coding Level of Care Code ED Agricultural Inspector for Fuentes Davis
--- NOTE | 2024-04-30 16:45 | PC.NURSE ---
per staff at [facility], pt is not welcome back . Dr. Andrea notified.
[2024-04-30] MEDS: LORazepam 1 mg Tablet PO (17:07)
[2024-04-30 17:10] VITALS: PULSE 96; O2SAT 98
[2024-04-30 17:26] VITALS: PULSE 96; O2SAT 98
[2024-04-30 17:28] VITALS: BP 142/88; PULSE 118; RESP 16; TEMP 36.5; O2SAT 98
[2024-04-30] MEDS: divalproex DR 250 mg Tablet PO (19:24)
[2024-04-30 19:40] VITALS: BP 137/91; PULSE 109; RESP 18; O2SAT 100
[2024-04-30] MEDS: hyDROXYzine 25 mg Capsule PO (20:32)
--- NOTE | 2024-04-30 22:25 | PC.NURSE ---
mild amount of slurred speech noted but this RN is aware that this is Pt's baseline speech pattern
[2024-05-01 06:00] VITALS: RESP 16
--- NOTE | 2024-05-01 12:54 | W.PM.NPUH&PS ---
Providers/Chief Complaint Admitting Physician: Benito Aguilar MD Primary Care Provider: Gurvinder Gallegos MD Chief Complaint: psych combative with staff HPI NPU History of Present Illness Luis Tapia is a 23 year old male who discharged from [facility] inpatient on 04/28/2024 directly to [facility] for the first time. He had been admitted to the neuropsychiatric unit on 04/23/2024 after he had had disruptive behavior in the home of his sister and had engaged in threatening behavior to the extent that the sister was uncomfortable with the patient returning home. Consequently, patient's sister had found a residential care facility for the patient to attend as she had also recently filed an ex partner today and the patient was not welcome to return home. Shortly after discharge here on 04/28/2024, the patient reports that he arrived at the residential home and reports that he was upset that he was not able to make phone calls whenever he wished there. He acknowledges having become upset and disruptive there. He states that he had become rowdy and was engaged in verbal attacks towards the staff. Later approximately 24 hours later, he had another episode where he became angry and he had made threats towards others including staff at the [facility] and the patient was brought to the emergency department for further evaluation. The patient had reported that he often struggled with following rules and expressed frustration that the current placement had established limits on when he could make phone calls to family members. He had stated that the police had come into the residential facility in efforts of calming down the situation and the patient had come to the emergency department on 04/30/2024. The residential facility had informed that the patient was not welcome to return home at this time. He reports having no thoughts currently of hurting himself or others. He had endorsed compliance with his medications that had been unchanged throughout his hospital stay for approximately 1 week from April 23, 2024 to April 28, 2024. No substantial changes have been reported by the patient other than the change in his new living situation as stated above. Current medications: Depakote 250mg daily, Seroquel 400mg at night, Hydroxyzine 25mg tid Excerpt from NPU inpatient evaluation from [facility] D/C summary from 04/28/24. History of Present Illness Luis Tapia is a 23 year old male who presented to the emergency department with the following report: Chief Complaint: Psychiatric Symptoms Stated Complaint: altercation, mhe Time Seen by Provider: 04/23/24 07:29 Source: patient Mode of arrival: EMS History of Present Illness: 23-year-old male presents emergency room after an altercation with his sister at home. He evidently lost a pet he was trying to find it he wanted his sister to help but she was sitting in a car and he was being at the window she called the police. Police arrived. So it disruptive but not threatening is no homicidal or suicidal intent. He usually is seen by [facility]. He is evidently in the process of applying to live in a snf which she wants to be able to do but has not yet filled out the application. He states he is not regular take his medications because he gets caught up and watching social media for hours and forgets by his own admission. He does not have anyone evidently that helps him with remembering his medication and had not taken medication regularly for some time now. Associated symptoms: Deny auditory hallucinations, visual hallucinations, homicidal ideation or suicidal ideation. He was admitted to the neuropsychiatric unit for definitive treatment of those issues. He is known to the psychiatric community here through inpatient and outpatient services with his last discharge 2 and half weeks ago in March. An excerpt of his discharge summary is included below for context and history given that he is a limited historian and there have been no substantive changes. He presents on a 96-hour hold secondary to reports of aggressive circumstances at home and him being off his medication for a period of time. We discussed the reported plan from him and his family to get him restarted on his medications and that their work to find him a reasonable residential setting to decrease the friction in the family related to sister being in charge of him has been accomplished. This last piece of information was not known until after the hospitalization. It is unclear if the facility is ready for him today or if there is a date in the very near future. He presents today reporting: Chief complaint The patient was brought into the hospital due to a conflict with his sister, aggressive behavior, and irregular intake of his prescribed medication. The family wanted to ensure that the patient was in a good place with his medication. The patient has been accepted into an independent living facility, [facility], where he will move directly after discharge. History of the present complaint The patient reported that they have not been taking their medication regularly. This irregularity in medication intake seems to be due to a lack of a consistent routine, as the patient mentioned that they often forget to take their medication when it gets late and they are tired. This has developed into a pattern of behavior for the patient. The patient was recently admitted to the hospital following a conflict with their sister, which reportedly involved some aggressive behavior. The patient's family wanted to ensure that they were in a good place with their medication, which led to their hospitalization. The patient has been accepted into an independent living facility, [facility], where they will move directly after being discharged from the hospital. The patient has been admitted to psychiatric facilities four times over the course of their life, including two admissions in 2016. They also receive outpatient services at [facility]. The patient denied any use of cannabis, or any other drugs. The patient did not report any new issues or concerns since their last visit two and a half weeks ago, other than the aforementioned acceptance into the independent living program, the conflict with their sister, and their irregular medication intake. The plan is to restart the patient's medication regimen and monitor them over the weekend. If all goes well, the patient will be discharged to the independent living facility on Friday. The patient did not express any concerns or additional information that needed to be discussed. Mental health history The patient has been hospitalized in psychiatric facilities four times over the course of his life, including two instances in 2016. He also receives outpatient services at [facility]. The patient has been prescribed medication, which he admits to not taking regularly. When he does take the medication as prescribed, it works well for him. Social history The patient denies any use of alcohol, cannabis, or any other drugs. He is due to move into an independent living facility after discharge from the hospital. Per his 04/07/2024 [facility] inpatient psychiatric discharge summary: Discharge Diagnosis (1) Depression: Status: Acute (2) Bipolar II disorder: Status: Chronic Reason for Visit Reason for Visit: DEPRESSION Brief History: History of Present Illness Luis Tapia is a 23 year old male with a history of bipolar 2 disorder who presented to the emergency department stating that he was having worsening depression and stated that he was not able to handle things at home. Patient was admitted to the neuropsychiatric unit for further evaluation and treatment. He reports that he has been more depressed since his mother in December of this year. He reports that he has been isolating himself. He states that he has been having more sadness as he cries all of the time. He reports that that he has low energy and states that his mood has been getting worse nearly every week despite him reporting compliance with his medications. He denies any drug or alcohol use. He was admitted to the neuropsychiatric unit for further evaluation and treatment. He had reported that he had thoughts of suicide and stated that he did not care if he was alive or . He reports that his mood has been down for several months. He had endorsed having periods of time in the past where he would be up for 3 to 4 days at a time and had racing thoughts and increased periods of irritability. Previous records had indicated that the patient had periods of time where he would have decreased need for sleep, productive speech and increased irritability and violent outburst along with destruction of property. He had denied any hypomanic symptoms recently. He reports no change in appetite. He does report that he frequently feels tired and does not wake up feeling refreshed. He reports that he will sleep all day. He reports that he has been crying more frequently. He denies any psychotic symptoms. He denies any history of recent destruction of property. Inpatient psychiatric history: Patient reports 3 previous inpatient psychiatric hospitalizations to having occurred in 2017 on the neuropsychiatric unit here in [facility]. Outpatient psychiatric history: He follows Maddie Venegas for medication management at [facility]. Current diagnoses includes intermittent explosive disorder, and bipolar 2 disorder. Drug and alcohol history: None reported Medical history: Cerebral palsy Surgical history: Right orchiectomy, history of dental surgery, history of tendon elongation in March 2011 Current medications: Seroquel 400 mg at night Allergies: No known drug allergies Legal history: admits past history of arrested for domestic violence in 2017, completed successfully 40 hours of community service and anger management classes and paid $500 fine. Family psychiatric history: Maternal: Grandmother-Bipolar Mother-Depression, anxiety, Panic attacks with Agoraphobia, PTSD ,Twin sister-depression and anxiety ,Brother-depression and anxiety Social history: Patient reports that he had been born in [place] and was raised by his mother. He had reported that he had been diagnosed with cerebral palsy. He had received special education services and received his diploma from [employer] later while receiving additional services for his learning disability. He has 1 older brother. He currently lives in [facility] with his sister. He had reported living with his mother most of his life until her in December 2023. He had minimized any history of sexual physical or emotional abuse. 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 Hospital Course During the hospitalization, the patient had routine laboratory studies which were within normal limits except for a few outliers. Additionally, there was a general medical evaluation which was also within normal limits and revealed no new acute processes. At the time of discharge, lethality was denied and psychosis was resolving. Mood and anxiety were well managed. The patient was started on Wellbutrin XL 150mg in am to target depression and seroquel was increased from 400mg daily to 500mg prior to discharge. The patient endorsed a plan to avoid all drugs of abuse and follow up with the aftercare recommendations of the treatment team. The patient was evaluated and deemed to be absent credible lethality and had achieved the maximum benefit from an inpatient hospitalization, and so was discharged. He reported improved mood at the time of discharge. Depakote was discontinued at the time of discharge. Meds NPU Home Medications Medication Instructions Recorded Confirmed Last Taken Type divalproex 250 mg tablet,delayed 250 mg PO 1900 30 days #30 tabs 04/28/24 04/30/24 Unknown Rx release quetiapine 400 mg tablet 400 mg PO BEDTIME 30 days #30 tabs 04/28/24 04/30/24 Unknown Rx hydroxyzine HCl 25 mg tablet 25 mg PO TID PRN Agitation or 04/30/24 04/30/24 Unknown History anxiety Allergies Allergy/AdvReac Type Severity Reaction Status Date / Time bupriopion AdvReac Intermediate ADR-Hyperte Uncoded 04/08/24 11:16 nsion PFS NPU PFS: Medical History COVID-19 Bereavement loss of mother on 01/08/24 Nausea and vomiting Psychiatric care Cerebral palsy Generalized anxiety disorder Bipolar II disorder Surgical History Hx of removal of testicle Right Orchiectomy at age 3. History of dental surgery Family History Other CAD (coronary artery disease) Hypertension Social History Smoking and tobacco/nicotine status: never used tobacco/nicotine Alcohol intake: never Substance/Drug Use: never Caregiver/support person: Yes Household members: family Mental Status Exam MSE Comments: This is an underweight white male in hospital scrubs with adequate grooming and limited eye contact. No abnormal movements except for a somewhat characteristic stride consistent with CP with limited contracture notable in hands. Mild psychomotor retardation noted. Cooperative with exam in mild distress. Speech was slightly decreased rate and volume with some characteristic fullness of tongue. Mood described as okay, affect slightly subdued. Thought process was linear and organized. Thought content: Patient denies suicidal or homicidal ideation, there were no delusions reported or noted, he denied any auditory or visual hallucinations. Attention and concentration appeared intact and memory appeared mostly reliable but none were formally tested. He is alert and oriented x 3. Insight was poor and judgment is poor impulse control is impaired. Vitals/I&O/Wt Last Vital Signs Temp 97.7 F 04/30/24 17:28 Pulse 109 H 04/30/24 19:40 Resp 16 05/01/24 06:00 BP 137/91 04/30/24 19:40 Pulse Ox 100 04/30/24 19:40 O2 Del Method Room Air 04/30/24 17:30 A&P Assessment and plan (1) Bipolar II disorder: (2) Generalized anxiety disorder: (3) Nausea and vomiting: Qualifiers: Vomiting type: psychogenic vomiting Qualified Code(s): F50.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 (4) COVID-19: (5) Cerebral palsy: Qualifiers: Cerebral palsy type: unspecified type Qualified Code(s): G80.9 - Cerebral palsy, unspecified (6) Bereavement: (7) Depression: Plan 23-year-old male with CP recently discharged less than 2 days ago to new living situation admitted with oppositional behavior, aggression and verbal threats currently under guardianship by sister. Given history of aggression, a medication showing some efficacy with aggression may be warranted in lieu of seroquel. 1. ?Continue seroquel to 400mg at night Continue Depakote as prescribed. Will contact guardian about medication change, 2.???Engage patient in milieu, individual and group therapy. Restart outpatient medications at this time. 3.?? Continue every 15 minute checks for safety. Involuntary Hold Information 96 Hour Hold: 96 Hour Involuntary Admission: Yes Attestations NPU Medical Necessity Statement*: Inpatient hospitalization is medically necessary and the clinically appropriate intervention at this time.? We will monitor/initiate medications and make changes as indicated.? The patient will be in the hospital for over 2 midnights.? The patient?s likely length of stay 7-10 days. Coding Level of Care Code Acute Code for Chg Fwd Diagnoses Bipolar II disorder F31.81 Generalized anxiety disorder F41.1 Psychogenic vomiting with nausea F50.89 Vomiting type: psychogenic vomiting COVID-19 U07.1 Cerebral palsy, unspecified type G80.9 Cerebral palsy type: unspecified type Bereavement Z63.4 Depression F32.A
[2024-05-01 14:00] VITALS: BP 144/102; PULSE 129; RESP 17; TEMP 36.6; O2SAT 98
[2024-05-01] MEDS: hyDROXYzine 25 mg Capsule PO ×2 (14:49→21:12)
[2024-05-01] MEDS: OLANZapine 5 mg ODT PO (19:02)
[2024-05-01] MEDS: divalproex DR 250 mg Tablet PO (19:02)
[2024-05-01] MEDS: trazodone 50 mg Tablet PO (21:12)
[2024-05-01 21:30] VITALS: BP 144/90; PULSE 119; RESP 18; TEMP 36.6; O2SAT 97
[2024-05-01 21:36] VITALS: BP 136/77; PULSE 153; RESP 18; TEMP 36.3; O2SAT 97
[2024-05-02 06:00] VITALS: BP 114/76; PULSE 83; RESP 16; TEMP 36.6; O2SAT 98
[2024-05-02 14:00] VITALS: BP 131/85; PULSE 110; RESP 17; TEMP 36.6; O2SAT 98
[2024-05-02] MEDS: hyDROXYzine 25 mg Capsule PO ×2 (14:04→21:03)
--- NOTE | 2024-05-02 14:05 | P.NPUPN_ITS ---
Subjective NPU Subjective: 23-year-old male history of bipolar 2 di sorder along with impulse control disorder admitted after becoming aggressive in a intermediate. Patient had been calm and cooperative here on the unit. He had reported that he had struggled with living by himself and had described having always been under the care of his mother and his twin sister for the past several years. He had acknowledged that he had problems with his temper particularly when things did not go the way was planned. He had reported that he had been told by a dispute resolution specialist just prior to admission that he was not allowed back to return with his sister because she had an ex partake against him. No legal documents had been provided to the treatment team regarding the patient being under guardianship and the patient had not clearly described being under the guardianship of his sister. Patient had reported adequate sleep. Mental Status Exam MSE Comments: This is an underweight white male in hospital scrubs with adequate grooming and limited eye contact. No abnormal movements except for a somewhat characteristic stride consistent with CP with limited contracture notable in hands. Mild psychomotor retardation noted. Cooperative with exam in mild distress. Speech was slightly decreased rate and volume with some characteristic fullness of tongue. Mood described as okay, affect slightly subdued. Thought process was linear and organized. Thought content: Patient denies suicidal or homicidal ideation, there were no delusions reported or noted, he denied any auditory or visual hallucinations. Attention and concentration appeared intact and memory appeared mostly reliable but none were formally tested. He is alert and oriented x 3. Insight was poor and judgment is poor impulse control is impaired. Vitals/I&O/Wt Last Vital Signs Temp 97.9 F 05/02/24 06:00 Pulse 83 05/02/24 06:00 Resp 16 05/02/24 06:00 BP 114/76 05/02/24 06:00 Pulse Ox 98 05/02/24 06:00 O2 Del Method Room Air 05/01/24 21:30 Weight last 48 hrs Weight 57.209 kg A&P Assessment and plan (1) Bipolar II disorder: (2) Generalized anxiety disorder: (3) Nausea and vomiting: Qualifiers: Vomiting type: psychogenic vomiting Qualified Code(s): F50.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 (4) COVID-19: (5) Cerebral palsy: Qualifiers: Cerebral palsy type: unspecified type Qualified Code(s): G80.9 - Cerebral palsy, unspecified (6) Bereavement: (7) Depression: Plan 23-year-old male with CP recently discharged less than 2 days ago to new living situation admitted with oppositional behavior, aggression and verbal threats currently under guardianship by sister. Given history of aggression, a medication showing some efficacy with aggression may be warranted in lieu of seroquel. 1. ?Continue seroquel to 400mg at night with plan for consideration of another mood stabilizer with potential more benefit for aggression such as risperidone. Increase Depakote 250mg bid with plan for further increase to target aggression. Discussed with patient regarding these changes. Guardianship by sister has not been confirmed by documentation of any kind. 2.???Engage patient in milieu, individual and group therapy. Restart outpatient medications at this time. 3.?? Continue every 15 minute checks for safety. 4. Will discuss issues in new residential placement. Involuntary Hold Information 96 Hour Hold: 96 Hour Involuntary Admission: Yes Attestations NPU Medical Necessity Statement*: Inpatient hospitalization is medically necessary and the clinically appropriate intervention at this time.? We will monitor/initiate medications and make changes as indicated.? The patient?s likely length of stay 7-10 days. Coding Level of Care Code Acute Code for [facility] Diagnoses Bipolar II disorder F31.81 Generalized anxiety disorder F41.1 Psychogenic vomiting with nausea F50.89 Vomiting type: psychogenic vomiting COVID-19 U07.1 Cerebral palsy, unspecified type G80.9 Cerebral palsy type: unspecified type Bereavement Z63.4 Depression F32.A
--- NOTE | 2024-05-02 14:05 | PC.NURSE ---
pt wanted Dr. Aguilar and [facility] and [employer] representative to know sister does not get off work until 2 pm through out the week.
[2024-05-02] MEDS: divalproex DR 250 mg Tablet PO (17:56)
[2024-05-02 22:00] VITALS: BP 134/81; PULSE 101; RESP 18; TEMP 36.6; O2SAT 97
[2024-05-03 06:00] VITALS: BP 117/78; PULSE 85; RESP 17; O2SAT 97
[2024-05-03] MEDS: divalproex DR 250 mg Tablet PO ×2 (08:48→17:38)
[2024-05-03 14:00] VITALS: BP 143/92; PULSE 111; RESP 16; TEMP 36.8; O2SAT 99
--- NOTE | 2024-05-03 14:50 | W.PM.NPUPNS ---
Subjective NPU Subjective: 23-year-old male history of bipolar 2 disorder along with impulse control disorder admitted after becoming aggressive in a senior care. The patient denied depressed mood at this time. He had continued to perseverate about wanting to go to a different facility. He had been upset earlier in the day as he had stated that the nurse case manager had told him that he may be a candidate for independent living. He had stated that the reason that he had a behavior issue at the residential facility that he was out for less than 48 hours was because it was not near his home of several years. He had acknowledged having lived in a very restricted environment and reported having some issues with anxiety. The patient had previous history of explosive outbursts and both verbal and physical threats in the past both at home and at various facilities. At this point the patient had remained his own legal guardian. Mental Status Exam MSE Comments: This is an underweight white male in hospital scrubs with adequate grooming and limited eye contact. No abnormal movements except for a somewhat characteristic stride consistent with CP with limited contracture notable in hands. Mild psychomotor retardation noted. He was cooperative with exam in mild distress. Speech was slightly decreased rate and volume with some characteristic fullness of tongue. Mood described as ok. His affect was slightly subdued. Thought process was linear and organized. Thought content: Patient denies suicidal or homicidal ideation, there were no delusions reported or noted, he denied any auditory or visual hallucinations. Attention and concentration appeared intact and memory appeared mostly reliable but none were formally tested. He is alert and oriented x 3. Insight was poor and judgment is poor. Impulse control is impaired. Vitals/I&O/Wt Last Vital Signs Temp 97.9 F 05/02/24 22:00 Pulse 85 05/03/24 06:00 Resp 17 05/03/24 06:00 BP 117/78 05/03/24 06:00 Pulse Ox 97 05/03/24 06:00 O2 Del Method Room Air 05/01/24 21:30 Weight last 48 hrs Weight 57.209 kg A&P Assessment and plan (1) Bipolar II disorder: (2) Generalized anxiety disorder: (3) Nausea and vomiting: Qualifiers: Vomiting type: psychogenic vomiting Qualified Code(s): F50.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 (4) COVID-19: (5) Cerebral palsy: Qualifiers: Cerebral palsy type: unspecified type Qualified Code(s): G80.9 - Cerebral palsy, unspecified (6) Bereavement: (7) Depression: Plan 23-year-old male with CP recently discharged less than 2 days ago to new living situation admitted with oppositional behavior, aggression and verbal threats currently under guardianship by sister. Given history of aggression, a medication showing some efficacy with aggression may be warranted in lieu of seroquel. 1. ?Taper seroquel with reduction to 300mg at night with plan and begin Risperidone at .5mg at night. Continue Depakote 250mg bid with plan for further increase to target aggression. Discussed with patient regarding these changes. Guardianship by sister has not been confirmed by documentation of any kind. Placement in locked facility may be necessary at this time given patient's explosive outbursts and poor frustration tolerance. 2.???Engage patient in milieu, individual and group therapy. Restart outpatient medications at this time. 3.?? Continue every 15 minute checks for safety. 4. Will discuss issues in new residential placement with bilingual patient support caseworker. Involuntary Hold Information 96 Hour Hold: 96 Hour Involuntary Admission: Yes Attestations NPU Medical Necessity Statement*: Inpatient hospitalization is medically necessary and the clinically appropriate intervention at this time.? We will monitor/initiate medications and make changes as indicated.? The patient?s likely length of stay 7-10 days. Coding Level of Care Code Acute Code for g Fwd Diagnoses Bipolar II disorder F31.81 Generalized anxiety disorder F41.1 Psychogenic vomiting with nausea F50.89 Vomiting type: psychogenic vomiting COVID-19 U07.1 Cerebral palsy, unspecified type G80.9 Cerebral palsy type: unspecified type Bereavement Z63.4 Depression F32.A
[2024-05-03] MEDS: risperiDONE 1 mg Tablet 0.5 MG PO (20:25)
[2024-05-03] MEDS: quetiapine 300 mg Tablet PO (20:26)
[2024-05-03 21:59] VITALS: BP 123/81; PULSE 106; RESP 18; TEMP 36.7; O2SAT 97
[2024-05-04 06:00] VITALS: BP 150/87; PULSE 117; RESP 18; TEMP 36.7; O2SAT 98
[2024-05-04] MEDS: divalproex DR 250 mg Tablet PO ×3 (08:29→20:17)
[2024-05-04 14:00] VITALS: BP 144/86; PULSE 117; RESP 16; TEMP 36.6; O2SAT 98
--- NOTE | 2024-05-04 14:18 | W.PM.NPUPNS ---
Subjective NPU Subjective: 23-year-old male history of bipolar 2 disorder along with impulse control disorder admitted after becoming aggressive and threatening in a skilled nursing. The patient had reported that he had been feeling better today. He had stated that he was uncomfortable being in a new place that was not in [place] as he stated that he had felt scared and unsure of things. He had acknowledged having problems with managing his moods and often becoming verbally and physically threatening even prior to his mother's . No episodes of aggression were seen here. He reported no side effects from the risperidone. Mental Status Exam MSE Comments: This is an underweight white male in hospital scrubs with adequate grooming and limited eye contact. No abnormal movements except for a somewhat characteristic stride consistent with CP with limited contracture notable in hands. Mild psychomotor retardation noted. He was cooperative with exam in mild distress. Speech was slightly decreased rate and volume with some characteristic fullness of tongue. Mood described as better today. His affect was slightly subdued. Thought process was linear and organized. There was evidence of viscous thinking. Thought content: Patient denies suicidal or homicidal ideation, there were no delusions reported or noted, he denied any auditory or visual hallucinations. Attention and concentration appeared intact and memory appeared mostly reliable but none were formally tested. He is alert and oriented x 3. Insight was poor and judgment is poor. Impulse control is impaired. 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 Given history of aggression, a medication showing some efficacy with aggression may be warranted in lieu of seroquel. 1. ?Taper seroquel with reduction to 200mg at night with plan and increase risperidone .75mg at night. Increase Depakote 250mg tid with plan for further increase to target aggression. Guardianship by sister has not been confirmed by documentation of any kind. Placement in locked facility may be necessary at this time given patient's explosive outbursts and poor frustration tolerance. 2.???Engage patient in milieu, individual and group therapy. Restart outpatient medications at this time. 3.?? Continue every 15 minute checks for safety. 4. Will discuss issues in new residential placement with case management manager. He may require guardianship and placement in locked facility. Involuntary Hold Information 96 Hour Hold: 96 Hour Involuntary Admission: Yes Attestations NPU Medical Necessity Statement*: Inpatient hospitalization is medically necessary and the clinically appropriate intervention at this time.? We will monitor/initiate medications and make changes as indicated.? The patient?s likely length of stay 7-10 days. Coding Level of Care Code Acute Code for g Fwd Diagnoses Bipolar II disorder F31.81 Generalized anxiety disorder F41.1 Psychogenic vomiting with nausea F50.89 Vomiting type: psychogenic vomiting COVID-19 U07.1 Cerebral palsy, unspecified type G80.9 Cerebral palsy type: unspecified type Bereavement Z63.4 Depression F32.A
[2024-05-04] MEDS: hyDROXYzine 25 mg Capsule 50 MG PO (16:17)
[2024-05-04] MEDS: risperiDONE 0.25 mg Tablet 0.75 MG PO (20:17)
[2024-05-04] MEDS: quetiapine 100 mg Tablet 200 MG PO (20:25)
[2024-05-04] MEDS: OLANZapine 5 mg ODT PO (21:12)
[2024-05-04 21:22] VITALS: BP 142/90; PULSE 106; RESP 14; TEMP 36.7; O2SAT 15
[2024-05-05 06:00] VITALS: BP 117/75; PULSE 91; RESP 14; TEMP 36.4; O2SAT 100
[2024-05-05] MEDS: divalproex DR 250 mg Tablet PO ×3 (08:22→20:05)
[2024-05-05] MEDS: hyDROXYzine 25 mg Capsule PO ×2 (09:28→18:02)
--- NOTE | 2024-05-05 12:30 | P.NPUPN_ITS ---
Subjective NPU Subjective: 23-year-old male history of bipolar 2 di sorder along with impulse control disorder admitted after becoming aggressive and threatening in a longterm. The patient had reported that he had better control of his anger today. He reported no side effects from the risperidone. He reported feeling more hopeful about going to live in a residential facility. He was pleasant and redirectable on the unit with no verbal threats noted. Mental Status Exam MSE Comments: This is an underweight white male in hospital scrubs with adequate grooming and limited eye contact. No abnormal movements except for a somewhat characteristic stride consistent with CP with limited contracture notable in hands. Mild psychomotor retardation noted. He was cooperative with exam in mild distress. Speech was normal in rate and volume with some characteristic fullness of tongue. Mood described as good. His affect was less restricted today. Thought process was linear and organized. There was evidence of viscous thinking. Thought content: Patient denies suicidal or homicidal ideation, there were no delusions reported or noted, he denied any auditory or visual hallucinations. Attention and concentration appeared intact and memory appeared mostly reliable but none were formally tested. He is alert and oriented x 3. Insight was improving and judgment is poor. Impulse control is impaired. Vitals/I&O/Wt Last Vital Signs Temp 97.6 F 05/05/24 06:00 Pulse 91 05/05/24 06:00 Resp 14 05/05/24 06:00 BP 117/75 05/05/24 06:00 Pulse Ox 100 05/05/24 06:00 O2 Del Method Room Air 05/05/24 06:00 A&P Assessment and plan (1) Bipolar II disorder: (2) Generalized anxiety disorder: (3) Nausea and vomiting: Qualifiers: Vomiting type: psychogenic vomiting Qualified Code(s): F50.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 (4) COVID-19: (5) Cerebral palsy: Qualifiers: Cerebral palsy type: unspecified type Qualified Code(s): G80.9 - Cerebral palsy, unspecified (6) Bereavement: (7) Depression: Plan 23-year-old male with CP recently discharged less than 2 days ago to new living situation admitted with oppositional behavior, aggression and verbal threats currently under guardianship by sister. Given history of aggression, a medication showing some efficacy with aggression may be warranted in lieu of seroquel. 1. ?Taper seroquel with reduction to 150mg at night with plan and increase risperidone 1mg at night. Continue Depakote 250mg tid with plan for further increase to target aggression. Guardianship by sister has not been confirmed by documentation of any kind. Placement in locked facility may be necessary at this time given patient's explosive outbursts and poor frustration tolerance. 2.???Engage patient in milieu, individual and group therapy. Restart outpatient medications at this time. 3.?? Continue every 15 minute checks for safety. 4. Will discuss issues in new residential placement with disease case manager. He may require guardianship and placement in locked facility. Involuntary Hold Information 96 Hour Hold: 96 Hour Involuntary Admission: Yes Attestations NPU Medical Necessity Statement*: Inpatient hospitalization is medically necessary and the clinically appropriate intervention at this time.? We will monitor/initiate medications and make changes as indicated.? The patient?s likely length of stay 7-10 days. Coding Level of Care Code Acute Code for [facility] Fwd Diagnoses Bipolar II disorder F31.81 Generalized anxiety disorder F41.1 Psychogenic vomiting with nausea F50.89 Vomiting type: psychogenic vomiting COVID-19 U07.1 Cerebral palsy, unspecified type G80.9 Cerebral palsy type: unspecified type Bereavement Z63.4 Depression F32.A
[2024-05-05] MEDS: OLANZapine 5 mg ODT PO (13:10)
[2024-05-05 13:59] VITALS: BP 135/88; PULSE 115; RESP 16; TEMP 36.4; O2SAT 98
[2024-05-05] MEDS: risperiDONE 0.25 mg Tablet 1 MG PO (20:06)
[2024-05-05] MEDS: quetiapine 100 mg Tablet 150 MG PO (20:06)
[2024-05-05 21:27] VITALS: BP 130/98; PULSE 125; RESP 15; TEMP 36.6; O2SAT 97
[2024-05-06 06:00] VITALS: BP 131/75; PULSE 116; RESP 15; TEMP 36.9; O2SAT 100
[2024-05-06] MEDS: divalproex DR 250 mg Tablet PO ×3 (09:01→20:05)
[2024-05-06 14:00] VITALS: BP 126/86; PULSE 125; RESP 17; TEMP 36.8; O2SAT 93
--- NOTE | 2024-05-06 19:40 | W.PM.NPUPNS ---
Subjective NPU Subjective: Patient presented today reporting that he is doing okay. He reports that he and the social work team are waiting [facility] to come and interview him to identify his appropriateness for their facility. He reports that he feels that there is a continued need for residential placement at that he has no new concerns. We will identify if they will visit tomorrow. Mental Status Exam MSE Comments: This is an underweight white male in hospital scrubs with adequate grooming and limited eye contact. No abnormal movements except for a somewhat characteristic stride consistent with CP with limited contracture notable in hands. Mild psychomotor retardation noted. He was cooperative with exam in mild distress. Speech was normal in rate and volume with some characteristic fullness of tongue. Mood described as good. His affect was less restricted today. Thought process was linear and organized. Thought content: Patient denies suicidal or homicidal ideation, there were no delusions reported or noted, he denied any auditory or visual hallucinations. Attention and concentration appeared intact and memory appeared mostly reliable but none were formally tested. He is alert and oriented x 3. Insight was improving and judgment is poor. Impulse control is impaired. Vitals/I&O/Wt Last Vital Signs Temp 98.2 F 05/06/24 14:00 Pulse 125 H 05/06/24 14:00 Resp 17 05/06/24 14:00 BP 126/86 05/06/24 14:00 Pulse Ox 93 05/06/24 14:00 O2 Del Method Room Air 05/06/24 06:00 A&P Assessment and plan (1) Bipolar II disorder: (2) Generalized anxiety disorder: (3) Nausea and vomiting: Qualifiers: Vomiting type: psychogenic vomiting Qualified Code(s): F50.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 (4) COVID-19: (5) Cerebral palsy: Qualifiers: Cerebral palsy type: unspecified type Qualified Code(s): G80.9 - Cerebral palsy, unspecified (6) Bereavement: (7) Depression: Plan 23-year-old male with CP recently discharged less than 2 days ago to new living situation admitted with oppositional behavior, aggression and verbal threats currently under guardianship by sister. Given history of aggression, a medication showing some efficacy with aggression may be warranted in lieu of seroquel. 1. ?Taper seroquel with reduction to 150mg at night with plan and increase risperidone 1mg at night. Continue Depakote 250mg tid with plan for further increase to target aggression. Guardianship by sister has not been confirmed by documentation of any kind. Placement in locked facility may be necessary at this time given patient's explosive outbursts and poor frustration tolerance. 2.???Engage patient in milieu, individual and group therapy. Restart outpatient medications at this time. 3.?? Continue every 15 minute checks for safety. 4. Will discuss issues in new residential placement with embedded case manager. He may require guardianship and placement in locked facility. Ue2 reportedly, and assessed. Involuntary Hold Information 96 Hour Hold: 96 Hour Involuntary Admission: Yes Attestations NPU Medical Necessity Statement*: Inpatient hospitalization is medically necessary and the clinically appropriate intervention at this time.? We will monitor/initiate medications and make changes as indicated.? The patient?s likely length of stay 4-6 days. Coding Level of Care Code Acute Code for g Fwd Diagnoses Bipolar II disorder F31.81 Generalized anxiety disorder F41.1 Psychogenic vomiting with nausea F50.89 Vomiting type: psychogenic vomiting COVID-19 U07.1 Cerebral palsy, unspecified type G80.9 Cerebral palsy type: unspecified type Bereavement Z63.4 Depression F32.A
[2024-05-06] MEDS: hyDROXYzine 25 mg Capsule PO (20:05)
[2024-05-06] MEDS: quetiapine 100 mg Tablet 150 MG PO (20:06)
[2024-05-06] MEDS: risperiDONE 1 mg Tablet PO (20:47)
[2024-05-06 21:56] VITALS: BP 128/78; PULSE 97; RESP 15; TEMP 36.5; O2SAT 97
[2024-05-07 06:00] VITALS: BP 129/83; PULSE 112; RESP 18; TEMP 36.6; O2SAT 99
[2024-05-07] MEDS: divalproex DR 250 mg Tablet PO ×3 (08:21→20:31)
[2024-05-07 14:00] VITALS: BP 158/95; PULSE 109; RESP 17; TEMP 36.9; O2SAT 99
[2024-05-07] MEDS: hyDROXYzine 25 mg Capsule 50 MG PO (18:17)
--- NOTE | 2024-05-07 18:32 | P.NPUPN_ITS ---
Subjective NPU Subjective: Patient presented today reporting that his meeting with [facility] went really well. He was very optimistic and happy about the opportunity. He ended up writing a note that he wanted to share with him but we discussed that being just a goal statement. In the letter he reported that he wants to make the best of this opportunity and that he is apologetic for some of the behaviors that he has displayed that could lead someone to believe that he would not be a good candidate. He reports he is excited about a chance to start somewhere fresh and to have the support of a place like [facility]. He denied any side effects to his medications. He discussed though not giving him any final answer but reporting a plan to clear this with the higher ups which he is hopeful is a sort of unofficial yes. Mental Status Exam MSE Comments: This is an underweight white male in hospital scrubs with adequate grooming and limited eye contact. No abnormal movements except for a somewhat characteristic stride consistent with CP with limited contracture notable in hands. Mild psychomotor retardation noted. He was cooperative with exam in mild distress. Speech was normal in rate and volume with some characteristic fullness of tongue. Mood described as good. His affect was less restricted today. Thought process was linear and organized. Thought content: Patient denies suicidal or homicidal ideation, there were no delusions reported or noted, he denied any auditory or visual hallucinations. Attention and concentration appeared intact and memory appeared mostly reliable but none were formally tested. He is alert and oriented x 3. Insight was improving and judgment is poor. Impulse control is limited, but improving. Vitals/I&O/Wt Last Vital Signs Temp 98.3 F 05/07/24 19:58 Pulse 108 H 05/07/24 19:58 Resp 17 05/07/24 19:58 BP 134/86 05/07/24 19:58 Pulse Ox 97 05/07/24 19:58 O2 Del Method Room Air 05/07/24 19:58 A&P Assessment and plan (1) Bipolar II disorder: (2) Generalized anxiety disorder: (3) Nausea and vomiting: Qualifiers: Vomiting type: psychogenic vomiting Qualified Code(s): F50.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 (4) COVID-19: (5) Cerebral palsy: Qualifiers: Cerebral palsy type: unspecified type Qualified Code(s): G80.9 - Cerebral palsy, unspecified (6) Bereavement: (7) Depression: Plan 23-year-old male with CP recently discharged less than 2 days ago to new living situation admitted with oppositional behavior, aggression and verbal threats currently under guardianship by sister. Given history of aggression, a m edication showing some efficacy with aggression may be warranted in lieu of seroquel. 1. ?Taper seroquel with reduction to 150mg at night with plan and increase risperidone 1mg at night. Continue Depakote 250mg tid with plan for further increase to target aggression. Guardianship by sister has not been confirmed by documentation of any kind. Placement in locked facility may be necessary at this time given patient's explosive outbursts and poor frustration tolerance. 2.???Engage patient in milieu, individual and group therapy. Restart outpatient medications at this time. 3.?? Continue every 15 minute checks for safety. 4. Will discuss issues in new residential placement with catalytic case operator. He may require guardianship and placement in locked facility. He had an informal meeting with [facility] that went very well and there was a tentative but unofficial acceptance but likely discharge to them on Friday. Involuntary Hold Information 96 Hour Hold: 96 Hour Involuntary Admission: Yes Attestations NPU Medical Necessity Statement*: Inpatient hospitalization is medically necessary and the clinically appropriate intervention at this time.? We will monitor/initiate medications and make changes as indicated.? The patient?s likely length of stay 3 days. Coding Level of Care Code Acute Code for g Fwd Diagnoses Bipolar II disorder F31.81 Generalized anxiety disorder F41.1 Psychogenic vomiting with nausea F50.89 Vomiting type: psychogenic vomiting COVID-19 U07.1 Cerebral palsy, unspecified type G80.9 Cerebral palsy type: unspecified type Bereavement Z63.4 Depression F32.A
[2024-05-07 19:58] VITALS: BP 134/86; PULSE 108; RESP 17; TEMP 36.8; O2SAT 97
[2024-05-07] MEDS: risperiDONE 1 mg Tablet PO (20:31)
[2024-05-07] MEDS: quetiapine 100 mg Tablet 150 MG PO (20:31)
[2024-05-07] MEDS: OLANZapine 5 mg ODT PO (21:05)
[2024-05-08 06:00] VITALS: BP 122/73; PULSE 105; RESP 17; O2SAT 97
[2024-05-08] MEDS: divalproex DR 250 mg Tablet PO ×3 (07:57→20:15)
[2024-05-08 08:33] LABS: Valproic Acid Level 51.2 ug/mL (50-100)
--- NOTE | 2024-05-08 09:58 | W.PM.NPUPNS ---
Subjective NPU Subjective: Patient presented today reporting that he is doing fine. He continues to do well but be somewhat anxious about the decision from [facility] per staff reports and direct observation. Otherwise he is denying any new issues and reports that the medications are working well and just continues to endorse hopefulness that [facility] will give him a chance and that he will be discharging on Friday. He denies any side effects of the medication. Mental Status Exam MSE Comments: This is an underweight white male in hospital scrubs with adequate grooming and limited eye contact. No abnormal movements except for a somewhat characteristic stride consistent with CP with limited contracture notable in hands. Mild psychomotor retardation noted. He was cooperative with exam in mild distress. Speech was normal in rate and volume with some characteristic fullness of tongue. Mood described as good. His affect was less restricted today. Thought process was linear and organized. Thought content: Patient denies suicidal or homicidal ideation, there were no delusions reported or noted, he denied any auditory or visual hallucinations. Attention and concentration appeared intact and memory appeared mostly reliable but none were formally tested. He is alert and oriented x 3. Insight was improving and judgment is poor. Impulse control is limited, but improving. Vitals/I&O/Wt Last Vital Signs Temp 98.3 F 05/07/24 19:58 Pulse 105 H 05/08/24 06:00 Resp 17 05/08/24 06:00 BP 122/73 05/08/24 06:00 Pulse Ox 97 05/08/24 06:00 O2 Del Method Room Air 05/07/24 19:58 A&P Assessment and plan (1) Bipolar II disorder: (2) Generalized anxiety disorder: (3) Nausea and vomiting: Qualifiers: Vomiting type: psychogenic vomiting Qualified Code(s): F50.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 (4) COVID-19: (5) Cerebral palsy: Qualifiers: Cerebral palsy type: unspecified type Qualified Code(s): G80.9 - Cerebral palsy, unspecified (6) Bereavement: (7) Depression: Plan 23-year-old male with CP recently discharged less than 2 days ago to new living situation admitted with oppositional behavior, aggression and verbal threats currently under guardianship by sister. Given history of aggression, a medication showing some efficacy with aggression may be warranted in lieu of seroquel. 1. ?Taper seroquel with reduction to 150mg at night with plan and increase risperidone 1mg at night. Continue Depakote 250mg tid with plan for further increase to target aggression. Guardianship by sister has not been confirmed by documentation of any kind. Placement in locked facility may be necessary at this time given patient's explosive outbursts and poor frustration tolerance. 2.???Engage patient in milieu, individual and group therapy. Restart outpatient medications at this time. 3.?? Continue every 15 minute checks for safety. 4. Will discuss issues in new residential placement with casework specialist. He may require guardianship and placement in locked facility. He had an informal meeting with [facility] that went very well and there was a tentative but unofficial acceptance but likely discharge to them on Friday. Involuntary Hold Information 96 Hour Hold: 96 Hour Involuntary Admission: Yes Attestations NPU Medical Necessity Statement*: Inpatient hospitalization is medically necessary and the clinically appropriate intervention at this time.? We will monitor/initiate medications and make changes as indicated.? The patient?s likely length of stay 2 days. Coding Level of Care Code Acute Code for g Fwd Diagnoses Bipolar II disorder F31.81 Generalized anxiety disorder F41.1 Psychogenic vomiting with nausea F50.89 Vomiting type: psychogenic vomiting COVID-19 U07.1 Cerebral palsy, unspecified type G80.9 Cerebral palsy type: unspecified type Bereavement Z63.4 Depression F32.A
[2024-05-08 14:00] VITALS: BP 129/85; PULSE 106; RESP 16; TEMP 36.6; O2SAT 98
[2024-05-08] MEDS: hyDROXYzine 25 mg Capsule 50 MG PO (16:26)
[2024-05-08] MEDS: risperiDONE 1 mg Tablet PO (20:16)
[2024-05-08] MEDS: quetiapine 100 mg Tablet 150 MG PO (20:16)
[2024-05-08] MEDS: OLANZapine 5 mg ODT PO (20:40)
[2024-05-08 22:00] VITALS: BP 143/94; PULSE 115; RESP 18; TEMP 36.7; O2SAT 96
[2024-05-09 06:00] VITALS: BP 115/74; PULSE 84; RESP 16; O2SAT 97
[2024-05-09] MEDS: divalproex DR 250 mg Tablet PO ×3 (08:47→20:13)
[2024-05-09] MEDS: hyDROXYzine 25 mg Capsule PO ×2 (08:47→20:23)
[2024-05-09 14:00] VITALS: BP 134/90; PULSE 116; RESP 16; TEMP 36.6; O2SAT 97
--- NOTE | 2024-05-09 18:20 | W.PM.NPUPNS ---
Subjective NPU Subjective: Patient presented today reporting that he is feeling fine and continues to be a little nervous about whether [facility] is going to accept him. He had very positive feedback from his interview on Friday and he continues to be hopeful that things work out. He reports that the medications are working out fine and he is excited about the possibility of leaving on Friday. He denied any side effects to the medication. Mental Status Exam MSE Comments: This is an underweight white male in hospital scrubs with adequate grooming and limited eye contact. No abnormal movements except for a somewhat characteristic stride consistent with CP with limited contracture notable in hands. Mild psychomotor retardation noted. He was cooperative with exam in mild distress. Speech was normal in rate and volume with some characteristic fullness of tongue. Mood described as good. His affect was less restricted today. Thought process was linear and organized. Thought content: Patient denies suicidal or homicidal ideation, there were no delusions reported or noted, he denied any auditory or visual hallucinations. Attention and concentration appeared intact and memory appeared mostly reliable but none were formally tested. He is alert and oriented x 3. Insight was improving and judgment is poor. Impulse control is limited, but improving. Vitals/I&O/Wt Last Vital Signs Temp 98 F 05/09/24 14:00 Pulse 116 H 05/09/24 14:00 Resp 16 05/09/24 14:00 BP 134/90 05/09/24 14:00 Pulse Ox 97 05/09/24 14:00 O2 Del Method Room Air 05/09/24 14:00 Weight last 48 hrs Weight 58.06 kg A&P Assessment and plan (1) Bipolar II disorder: (2) Generalized anxiety disorder: (3) Nausea and vomiting: Qualifiers: Vomiting type: psychogenic vomiting Qualified Code(s): F50.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 (4) COVID-19: (5) Cerebral palsy: Qualifiers: Cerebral palsy type: unspecified type Qualified Code(s): G80.9 - Cerebral palsy, unspecified (6) Bereavement: (7) Depression: Plan 23-year-old male with CP recently discharged less than 2 days ago to new living situation admitted with oppositional behavior, aggression and verbal threats currently under guardianship by sister. Given history of aggression, a medication showing some efficacy with aggression may be warranted in lieu of seroquel. 1. ?Taper seroquel with reduction to 150mg at night with plan and increase risperidone 1mg at night. Continue Depakote 250mg tid with plan for further increase to target aggression. Guardianship by sister has not been confirmed by documentation of any kind. Placement in locked facility may be necessary at this time given patient's explosive outbursts and poor frustration tolerance. 2.???Engage patient in milieu, individual and group therapy. Restart outpatient medications at this time. 3.?? Continue every 15 minute checks for safety. 4. Will discuss issues in new residential placement with case manager specialist. He may require guardianship and placement in locked facility. He had an informal meeting with [facility] that went very well and there was a tentative but unofficial acceptance but likely discharge to them tomorrow. Involuntary Hold Information 96 Hour Hold: 96 Hour Involuntary Admission: Yes Attestations NPU Medical Necessity Statement*: Inpatient hospitalization is medically necessary and the clinically appropriate intervention at this time.? We will monitor/initiate medications and make changes as indicated.? The patient?s likely length of stay 1 day. Coding Level of Care Code Acute Code for Chg Fwd Diagnoses Bipolar II disorder F31.81 Generalized anxiety disorder F41.1 Psychogenic vomiting with nausea F50.89 Vomiting type: psychogenic vomiting COVID-19 U07.1 Cerebral palsy, unspecified type G80.9 Cerebral palsy type: unspecified type Bereavement Z63.4 Depression F32.A
[2024-05-09 20:00] VITALS: BP 136/87; PULSE 114; RESP 18; TEMP 36.4; O2SAT 97
[2024-05-09] MEDS: quetiapine 100 mg Tablet 150 MG PO (20:13)
[2024-05-09] MEDS: risperiDONE 1 mg Tablet PO (20:13)
[2024-05-10 06:00] VITALS: BP 113/70; PULSE 102; RESP 17; TEMP 36.7; O2SAT 99
[2024-05-10] MEDS: divalproex DR 250 mg Tablet PO ×3 (08:05→20:12)
[2024-05-10 14:00] VITALS: BP 123/76; PULSE 121; RESP 16; TEMP 36.8; O2SAT 96
--- NOTE | 2024-05-10 15:04 | P.NPUPN_ITS ---
Subjective NPU Subjective: Patient presented today reporting that he is feeling much better overall. He got the news that he was excepted at [facility] and medically will need to get his PPD placed tomorrow on his way there. He feels very optimistic about his chances for success. He was very grateful for the assistance that he obtained while he was here and denied any side effects to his medications. Mental Status Exam MSE Comments: This is an underweight white male in hospital scrubs with adequate grooming and limited eye contact. No abnormal movements except for a somewhat characteristic stride consistent with CP with limited contracture notable in hands. Mild psychomotor retardation noted. He was cooperative with exam in mild distress. Speech was normal in rate and volume with some characteristic fullness of tongue. Mood described as good. His affect was less restricted today. Thought process was linear and organized. Thought content: Patient denies suicidal or homicidal ideation, there were no delusions reported or noted, he denied any auditory or visual hallucinations. Attention and concentration appeared intact and memory appeared mostly reliable but none were formally tested. He is alert and oriented x 3. Insight was improving and judgment is poor. Impulse control is limited, but improving. 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 Given history of aggression, a medication showing some efficacy with aggression may be warranted in lieu of seroquel. 1. ?Taper seroquel with reduction to 150mg at night with plan and increase risperidone 1mg at night. Continue Depakote 250mg tid with plan for further increase to target aggression. Guardianship by sister has not been confirmed by documentation of any kind. Placement in locked facility may be necessary at this time given patient's explosive outbursts and poor frustration tolerance. 2.???Engage patient in milieu, individual and group therapy. Restart outpatient medications at this time. 3.?? Continue every 15 minute checks for safety. 4. Will discuss issues in new residential placement with family independence case manager. He may require guardianship and placement in locked facility. He had an informal meeting with [facility] that went very well. He was officially excepted today, 05/10/2024 with a plan to discharge tomorrow with his family independence case manager taking him to the health clinic to get his PPD placed. Involuntary Hold Information 96 Hour Hold: 96 Hour Involuntary Admission: Yes Attestations NPU Medical Necessity Statement*: Inpatient hospitalization is medically necessary and the clinically appropriate intervention at this time.? We will monitor/initiate medications and make changes as indicated.? The patient?s likely length of stay 1 day. Coding Level of Care Code Acute Code for Chg Fwd Diagnoses Bipolar II disorder F31.81 Generalized anxiety disorder F41.1 Psychogenic vomiting with nausea F50.89 Vomiting type: psychogenic vomiting COVID-19 U07.1 Cerebral palsy, unspecified type G80.9 Cerebral palsy type: unspecified type Bereavement Z63.4 Depression F32.A
[2024-05-10] MEDS: quetiapine 100 mg Tablet 150 MG PO (20:12)
[2024-05-10] MEDS: hyDROXYzine 25 mg Capsule 50 MG PO (20:12)
[2024-05-10] MEDS: risperiDONE 1 mg Tablet PO (20:12)
[2024-05-10 22:00] VITALS: BP 136/88; PULSE 107; RESP 16; TEMP 36.6; O2SAT 97
[2024-05-11 06:00] VITALS: BP 141/84; PULSE 117; RESP 18; TEMP 36.6; O2SAT 99
[2024-05-11] MEDS: divalproex DR 250 mg Tablet PO (08:27)
--- NOTE | 2024-05-11 10:58 | P.NPUDS_ITS ---
Diagnoses at Discharge Discharge Diagnosis (1) Bipolar II disorder: Status: Acute (2) Generalized anxiety disorder: Status: Acute (3) Nausea and vomiting: Status: Inactive Qualifiers: Vomiting type: psychogenic vomiting Qualified Code(s): F50.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 (4) COVID-19: Status: Inactive (5) Cerebral palsy: Status: Inactive Qualifiers: Cerebral palsy type: unspecified type Qualified Code(s): G80.9 - Cerebral palsy, unspecified (6) Bereavement: Status: Acute Permanent problem details: loss of mother on 01/08/24 (7) Depression: Status: Resolved Reason for Visit Reason for Visit: psych combative with staff Involuntary Hold Information 96 Hour Hold: 96 Hour Involuntary Admission: Yes Mental Status Exam MSE Comments: This is an underweight white male in hospital scrubs with adequate grooming and limited eye contact. No abnormal movements except for a somewhat characteristic stride consistent with CP with limited contracture notable in hands. Mild psychomotor retardation noted. He was cooperative with exam in mild distress. Speech was normal in rate and volume with some characteristic fullness of tongue. Mood described as good. His affect was less restricted today. Thought process was linear and organized. Thought content: Patient denies suicidal or homicidal ideation, there were no delusions reported or noted, he denied any auditory or visual hallucinations. Attention and concentration appeared intact and memory appeared mostly reliable but none were formally test ed. He is alert and oriented x 3. Insight was improving and judgment is poor. Impulse control is limited, but improving. Discharge Data 2 Studies Completed and Pending: Laboratory Results Valproic Acid 51.2 ug/mL (50-10 0) 05/08/24 08:02 Vitals: Last Vital Signs Temp 97.8 F 05/11/24 06:00 Pulse 117 H 05/11/24 06:00 Resp 18 05/11/24 06:00 BP 141/84 05/11/24 06:00 Pulse Ox 99 05/11/24 06:00 O2 Del Method Room Air 05/11/24 06:00 Discharge Plan Discharge Patient Disposition: Home Condition: Stable Prescriptions: New divalproex 250 mg Tablet,Delayed Release (Dr/Ec) 250 mg PO TID 30 Days Qty: 90 1RF quetiapine 100 mg Tablet 100 mg PO BEDTIME 10 Days Qty: 10 0RF Rx Instructions: After 1 week decrease to 50 mg at bedtime then discontinue risperidone 2 mg tablet 2 mg PO BEDTIME 30 Days Qty: 30 1RF Changed hydroxyzine HCl 25 mg tablet 25 mg PO TID PRN (Reason: Agitation or anxiety) 30 Days Qty: 90 1RF Discontinued quetiapine 400 mg tablet 400 mg PO BEDTIME 30 Days Qty: 30 1RF divalproex 250 mg Tablet,Delayed Release (Dr/Ec) 250 mg PO 1900 30 Days Qty: 30 1RF Discharge Orders: Discharge Order (Routine); Ordered 05/11/24 Ordered By: Raoul Arreola Referrals: [facility] [Other] Sd Mcgowan [Therapist] - Gurvinder Gallegos MD [Primary Care Provider] - Miri Knapp PMHNP [Staff Physician] - Discharge Diet: Advance as tolerated and Regular Discharge Activity: Resume usual activity Patient Instructions: Anxiety (ED), Opioid Safety Discharge Attestations NPU Time Spent in Discharge Care*: less than 30 min Specific Discharge Activities: Specific discharge activities: educating patient, discussing with clinical case manager/social workers/dc planners, documenting/other paperwork and evaluating patient/reviewing data Coding Level of Care Code Acute Code for Chg Fwd Diagnoses Bipolar II disorder F31.81 Generalized anxiety disorder F41.1 Psychogenic vomiting with nausea F50.89 Vomiting type: psychogenic vomiting COVID-19 U07.1 Cerebral palsy, unspecified type G80.9 Cerebral palsy type: unspecified type Bereavement Z63.4 Depression F32.A
[2024-05-11 13:07] VITALS: BP 141/84; PULSE 117; RESP 18; TEMP 36.6; O2SAT 99
== END 2024-05-11 13:20 | disposition home or self-care (01) | DRG 885 ==
LOC: ER 16:30 → NP 17:23
PROVIDERS: Admitting Provider Psychiatry & Neurology Psychiatry; Emergency Provider Emergency Medicine; PCP Family Medicine Adult Medicine; Visit Provider Psychiatry & Neurology Psychiatry
DX: F31.81 Bipolar II disorder (principal); Z68.1 Body mass index [BMI] 19.9 or less, adult; Z86.16 Personal history of COVID-19; Z63.4 Disappearance and death of family member; G80.9 Cerebral palsy, unspecified; F41.1 Generalized anxiety disorder; F50.89 Other specified eating disorder; F63.9 Impulse disorder, unspecified
CPT/HCPCS: 36415; 80164; 97150; 97165; 97167; 99285

== ENCOUNTER 2024-05-19 20:08 | Emergency (ER) | payer MEDICARE, MEDICAID, SELFPAY ==
[2024-05-19 20:11] VITALS: BP 138/84; PULSE 110; RESP 18; TEMP 36.7; O2SAT 94; BMI 16.9
--- NOTE | 2024-05-19 20:12 | W.ED.PSYCHS ---
HPI - Psych General: Chief Complaint: Psychiatric Symptoms Stated Complaint: SI/HI Time Seen by Provider: 05/19/24 20:09 Source: patient and EMS Mode of arrival: EMS Limitations: no limitations History of Present Illness: 23-year-old male is well-known to the ER has a history of CP patient recently been in our psych reece he is currently at assisted living he states that he is trying to get attention today and said he wanted to kill himself he states that he did not mean and he is not suicidal he denies any suicidality or depression at this time. Associated symptoms: Deny depression or suicidal ideation Review of Systems Const: Denies: fever(s), chills, body aches or change in appetite ENMT: Denies: throat pain or dental pain Card: Denies: chest pain Resp: Denies: dyspnea GI: Denies: abdominal pain, nausea, vomiting or diarrhea Musc: Denies: neck pain or back pain Skin/Breast: Denies: rash Neuro: Denies: headache(s) Psych: Denies: depression or suicidal ideation PFSH ED PFSH: Medical History Generalized anxiety disorder Bipolar II disorder COVID-19 Bereavement loss of mother on 01/08/24 Nausea and vomiting Psychiatric care Cerebral palsy Surgical History Hx of removal of testicle Right Orchiectomy at age 3. History of dental surgery Family History Other CAD (coronary artery disease) Hypertension Social History Smoking and tobacco/nicotine status: never used tobacco/nicotine Alcohol intake: never Substance/Drug Use: never Caregiver/support person: Yes Household members: family Physical Exam Const: COMMON NORMALS: no acute distress, patient oriented x3 and healthy appearing HENMT: COMMON NORMALS: normocephalic and atraumatic HEAD & SCALP: normocephalic and atraumatic Neck/C-Spine: COMMON NORMALS: full ROM Chest: COMMONS NORMALS: normal inspection of the chest Resp: COMMON NORMALS: normal respiratory effort Cardio: COMMON NORMALS: regular rate, regular rhythm and No murmurs present (Cardio) RATE: regular rate RHYTHM: regular rhythm Extremity: COMMON NORMALS: normal to inspection and full ROM Neuro: COMMON NORMALS: patient oriented x3, moves all extremities and no focal motor deficits Psych: COMMON NORMALS: mental status grossly normal, Normal thought process present and cooperative THOUGHT PROCESS: Normal thought process present Skin: COMMON NORMALS: no rashes or lesions noted and no wounds GENERAL SKIN EXAM: no rashes or lesions noted Course Vital Signs: Vital signs: Vital Signs Temperature 98.0 F 05/19/24 20:11 Pulse Rate 110 H 05/19/24 20:11 Respiratory Rate 18 05/19/24 20:11 Blood Pressure 138/84 05/19/24 20:11 Pulse Oximetry 94 05/19/24 20:11 Oxygen Delivery Me thod Room Air 05/19/24 20:11 [facility] - Psych Medical Decision Making Patient presents with depression he is not suicidal or homicidal I spoke to Dr. Arreola who knows patient very well not believe that he is a threat to himself and he stable for discharge back to [facility] at this time Medical Records I reviewed the patient's medical records. No radiology studies performed this visit Discharge Plan Discharge Patient Disposition: Home Clinical Impression: Depression Condition: Stable Prescriptions: No Action risperidone 2 mg tablet 2 mg PO BEDTIME 30 Days Qty: 90 2RF Rx Instructions: Take one tablet at bedtime divalproex 250 mg tablet,delayed release (DR/EC) 250 mg PO TID 30 Days Qty: 270 2RF Rx Instructions: Take one tablet three times per day hydroxyzine HCl 25 mg tablet 25 mg PO TID PRN (Reason: Agitation or anxiety) 30 Days Qty: 90 1RF Discharge Orders: Discharge ED (Routine); Ordered 05/19/24 Ordered By: Lino Andrea Referrals: Gurvinder Gallegos MD [Primary Care Provider] - Discharge Diet: Advance as tolerated Discharge Activity: Resume usual activity Patient Instructions: Depression (ED) Coding Level of Care Code 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
== END 2024-05-19 20:59 | disposition home or self-care (01) ==
PROVIDERS: Emergency Provider Emergency Medicine; PCP Family Medicine Adult Medicine
DX: F32.A Depression, unspecified (principal); G80.9 Cerebral palsy, unspecified
CPT/HCPCS: 80061; 83036; 99281

== ENCOUNTER → 2025-02-09 12:02 | Outpatient (BNVA) | payer MEDICARE, OTHER, SELFPAY ==
[2024-09-13 07:56] VITALS: BP 139/73; BMI 20.1
== END ==
PROVIDERS: PCP Family Medicine Adult Medicine; Visit Provider Nurse Practitioner Psychiatric/Mental Health
DX: Z79.899 Other long term (current) drug therapy (principal)
CPT/HCPCS: 80053; 80061; 80307; 83036

== ENCOUNTER → 2025-03-09 10:33 | Outpatient (BNVA) | payer MEDICARE, OTHER, SELFPAY ==
[2024-09-13 07:56] VITALS: BP 139/73; BMI 20.1
== END ==
PROVIDERS: PCP Family Medicine Adult Medicine; Visit Provider Nurse Practitioner Psychiatric/Mental Health
DX: Z79.899 Other long term (current) drug therapy (principal)
CPT/HCPCS: 80164

== ENCOUNTER 2025-04-17 21:44 | Inpatient (IN) | payer MEDICARE, MEDICAID, SELFPAY ==
[2025-04-08 16:07] VITALS: BP 115/77; BMI 18.2
[2025-04-17 21:45] VITALS: BP 109/77; PULSE 110; RESP 18; TEMP 37; O2SAT 97; BMI 18.2
--- NOTE | 2025-04-17 22:18 | ED.C_ITS ---
Documented by User: CORTEZ Urrutia 04/18/25 02:04 HPI - Psych 2 General: Chief Complaint: Psychiatric Symptoms Stated Complaint: DEPRESSION Time Seen by Provider: 04/17/25 21:55 History of Present Illness: Patient is a 24-year-old gentleman that states he is present because he is more depressed. Denies any suicide ideations. He stated he had a verbal altercation with the staff of the home he is in, and his girlfriend is also present in the same home. He stated that staff was keeping him from his girlfriend, and they were to stay apart for 24 to 48 hours, and he obliged the staff with this, and then staff still would not allow him to see his girlfriend. He states that he got angry and did yell profanities. Denied anything other than a verbal altercation. He does admit that he may need his medications adjusted. I discussed the above with patient's assisted living, [facility], that state that his girlfriend that is also a resident asked for space. Patient denied her space. Assisted-living staff stated patient could not go in the room when she is asked for space. Patient was angry and stated he wanted to hear it from her. Then patient apparently stated he did not want to live anymore, and patient admits this. He stated he immediately took it back. He then stated to staff that they could fuck themselves when he could not see his girlfriend. Staff asked if he wanted to go to the ER, and patient consented to ER visit. Associated symptoms: Reports depression; Deny delusions Related Data Previous Rx's ?Medication ?Instructions ?Recorded risperidone 2 mg tablet 2 mg PO BEDTIME 30 days #90 tabs 11/30/24 divalproex 250 mg tablet,delayed 250 mg PO .7 pm 30 da ys #90 tabs 02/09/25 release hydroxyzine HCl 50 mg tablet 50 mg PO BID PRN anxiety #60 tabs 02/09/25 propranolol 10 mg tablet 5 mg (1/2 x 10 mg) PO .socrates isabel #15 03/09/25 tabs Allergies Allergy/AdvReac Type Severity Reaction Status Date / Time bupropion AdvReac Intermediate Unknown Verified 03/09/25 09:56 Review of Systems 2 General: Reports: 10 or more systems reviewed and unremarkable except in HPI and below Const: Denies: fever(s) or chills Eyes: Denies: change in vision or blurry vision ENMT: Denies: throat pain or mouth pain Card: Denies: chest pain or palpitations Resp: Denies: dyspnea or productive cough GI: Denies: abdominal pain, nausea or vomiting : Denies: flank pain or difficulty urinating Musc: Denies: neck pain, back pain or extremity pain Skin/Breast: Denies: rash or pruritus Neuro: Denies: headache(s) or numbness in extremities Psych: Reports: anxiety, depression, mood swings, irritability and paranoia; Denies: panic attacks, sleeping less, sleeping more, hopelessness, loss of interest or change in appetite Endo: Denies: polyuria or polydipsia Yair/Lymph: Denies: easy bruising or easy bleeding All/Imm: Denies: urticaria or throat swelling PFSH ED 2 PFSH: Medical History Generalized anxiety disorder Bipolar II disorder COVID-19 Bereavement loss of mother on 01/08/24 Nausea and vomiting Psychiatric care Cerebral palsy Surgical History Hx of removal of testicle Right Orchiectomy at age 3. History of dental surgery Family History Other CAD (coronary artery disease) Hypertension Social History (Updated 06/15/24 @ 15:27 by Janki Garcia RN) Smoking and tobacco/nicotine status: never used tobacco/nicotine Alcohol intake: never Substance/Drug Use: never Adopted: No Caregiver/support person: Yes Lives independently: No Household members: other Details: [facility] Housing: Assisted Living Facility Marital status: Single Number of children: 0 Highest education level completed: High School Graduate service: No Current occupational status: disabled Pets and animals: Yes Pets & animals: cat(s) Leisure activites: music and other Leisure activities details: watch TV Sexually active: No Do you think of yourself as: Straight/Heterosexual Current gender identity: Male Madie/Shinto: Uatsdin Special madie needs: No Agree to transfusion: Yes Physical Exam 2 Const: COMMON NORMALS: no acute distress, average body habitus, patient oriented x3 and no limitations ORIENTATION/CONSCIOUSNESS: Yes awake, Yes oriented to person, Yes oriented to place and Yes oriented to time HENMT: COMMON NORMALS: normocephalic, atraumatic and Normal external nose present HEAD & SCALP: normocephalic and atraumatic FACE & SINUS: normal facial exam and sinuses nontender NOSE: Normal external nose present and Normal nares present MOUTH: Normal oral and palatal mucosa present, lip normal and tongue normal TEETH & GINGIVA: Yes abnormal tooth and associated gingiva THROAT: posterior oropharynx normal, tonsils normal and uvula midline Eye: COMMON NORMALS: Equal, round and reactive pupils present GENERAL EYE: normal light reflex SCLERA: sclerae normal CORNEA: Yes corneas normal P UPIL: Yes Equal, round and reactive pupils present DIRECT OPHTHALMOSCOPY: Yes normal light reflex Lymph: LYMPHATIC: no lymphadenopathy noted Chest: Breast/axilla inspection: Yes no chest deformity, asymmetry, normal contours, no nodules, masses, tenderness Resp: COMMON NORMALS: normal respiratory effort, No retractions and clear to auscultation bilaterally AUSCULTATION: clear to auscultation bilaterally Cardio: COMMON NORMALS: regular rate, regular rhythm, S1 normal heart sound present and S2 normal heart sound present RATE: regular rate RHYTHM: r egular rhythm HEART SOUNDS: S1 normal heart sound present and S2 normal heart sound present GI: COMMON NORMALS: Normal to inspection, nondistended, normoactive bowel sounds present, Soft to palpation and non-tender AUSCULTATION: Yes normoactive bowel sounds PALPATION: Yes Soft to palpation : COMMON NORMALS: Yes no CVA tenderness BLADDER/KIDNEY EXAM: Yes no CVA tenderness Back/Pelvis: COMMON NORMALS: no CVA tenderness Extremity: COMMON NORMALS: normal to inspection and full ROM Neuro: COMMON NORMALS: patient oriented x3 and CN's II-XII intact bilaterally SENSORIUM/ORIENTATION: Yes oriented to person, Yes oriented to place and Yes oriented to time Psych: COMMON NORMALS: mental status grossly normal, Normal thought process present, cooperative, normal affect and speech normal ACTIVITY/MOTOR BEHAVIOR: Yes appropriate eye contact SPEECH: Yes normal speech MOOD & AFFECT: Yes depressed mood THOUGHT PROCESS: Normal thought process present THOUGHT CONTENT: Yes Normal thought content present, No Suicidality present and No delusions ATTENTION/CONCENTRATION: Yes attention grossly intact M PARVIZ/COGNITION: Yes memory grossly intact INSIGHT: Fair insight present (Psych) Skin: COMMON NORMALS: no rashes or lesions noted and no wounds GENERAL SKIN EXAM: no rashes or lesions noted Course 2 Reevaluation(s): Reevaluation #1: Still awaiting urinalysis and drug screen. Gave patient water, and urine cup. Consultations: Consultation #1: Dr. Arreola approved admission at 0132 Vital Signs: Vital signs: Vital Signs Temperature 98.6 F 04/17/25 21:45 Pulse Rate 78 04/18/25 01:08 Respiratory Rate 16 04/18/25 01:08 Blood Pressure 108/76 04/18/25 01:08 Pulse Oximetry 97 04/18/25 01:08 Oxygen Delivery Me thod Room Air 04/18/25 01:08 MDM - Psych Medical Decision Making Will obtain medical screening and contact psychiatrist. Affidavit has been filled out by myself. Patient is voluntary at this juncture, his own power of trade mark attorney, and therefore will defer to psych for further decision-making regarding his impulsive verbalization of how he did not want to live. Discussed with Dr. Arreola, and he accepted as admission. Lab Data 04/17/25 22:45 04/17/25 22:45 Laboratory Results WBC 11.31 10^3/uL (3.29-11.43) 04/17/25 22:45 RBC 4.72 10^6/uL (3.85-5.65) 04/17/25 22:45 Hgb 15.30 g/dL (11.27-16.99) 04/17/25 22:45 Hct 43.8 % (37-53) 04/17/25 22:45 MCV 92.8 fl (82-101) 04/17/25 22:45 MCH 32.4 pg (27-33) 04/17/25 22:45 MCHC 34.9 g/dL (30-55) 04/17/25 22:45 RDW 11.8 % (12.1-15.1) L 04/17/25 22:45 Plt Count 268 10^3/cmm (157-399) 04/17/25 22:45 MPV 10.1 fL (7.4-10.4) 04/17/25 22:45 Neut % (Auto) 69.3 % 04/17/25 22:45 Lymph % (Auto) 23.0 % 04/17/25 22:45 [place] % (Auto) 6.6 % 04/17/25 22:45 Eos % (Auto) 0.3 % 04/17/25 22:45 Baso % (Auto) 0.5 % 04/17/25 22:45 Neut # (Auto) 7.84 10^3/uL (1.8-7.7) H 04/17/25 22:45 Lymph # (Auto) 2.6 10^3/uL (0.8-4.8) 04/17/25 22:45 [place] # (Auto) 0.8 10^3/uL (0.2-0.9) 04/17/25:45 Eos # (Auto) 0.0 10^3/uL (0.0-0.8) 04/17/25:45 Baso # (Auto) 0.1 10^3/uL (0.0-0.1) 04/17/25:45 Nucleated RBC % (auto) 0 % 04/17/25:45 Nucleated RBCs # 0.0 /100WBC 04/17/25 22:45 Sodium 139 mmol/L (136-145) 04/17/25 22:45 Potassium 3.7 mmol/L (3.5-5.1) 04/17/25:45 Chloride 102 mmol/L (98-107) 04/17/25:45 Carbon Dioxide 23 mmol/L (22-29) 04/17/25 22:45 Anion Gap 17.7 (5-19) 04/17/25 22:45 BUN 11 mg/dL (6-20) 04/17/25 22:45 Creatinine 0.8 mg/dL (0.7-1.2) 04/17/25 22:45 GFR Calculation 116.9 mL/min (90-130) 04/17/25 22:45 Glucose 93 mg/dL (65-115) 04/17/25 22:45 Calculated Osmolality 287 mOsm/kg (285-295) 04/17/25:45 Calcium 9.3 mg/dL (8.5-10.5) 04/17/25 22:45 Total Bilirubin 0.4 mg/dL (0.15-1.2) 04/17/25 22:45 AST 12 U/L (0-40) 04/17/25 22:45 ALT 9 U/L (0-41) 04/17/25 22:45 Alkaline Phosphatase 71 U/L (40-130) 04/17/25 22:45 Total Protein 7.6 g/dL (6.6-8.7) 04/17/25 22:45 Albumin 4.6 g/dL (3.5-5.2) 04/17/25 22:45 Globulin 3.0 g/dL (1.3-4.6) 04/17/25 22:45 TSH 2.54 uIU/mL (0.27-4.20) 04/17/25 22:45 Urine Color Yellow (Yellow) 04/17/25 23:50 Urine Appearance Clear (CLEAR) 04/17/25 23:50 Urine pH 6.5 (5-7) 04/17/25 23:50 Ur Specific [place] 1.020 (1.005-1.030) 04/17/25 23:50 Urine Protein Negative (Negative) 04/17/25 23:50 Urine Glucose (UA) Negative (Normal) 04/17/25 23:50 Urine Ketones 1+ (Negative) H 04/17/25 23:50 Urine Blood Negative (Negative) 04/17/25 23:50 Urine Nitrate Negative (Negative) 04/17/25 23:50 Urine Bilirubin Negative (Negative) 04/17/25 23:50 Urine Urobilinogen 1.0 mg/dL (Negative) 04/17/25 23:50 Ur Leukocyte Esterase Negative (Negative) 04/17/25 23:50 Urine RBC 0-2 /hpf (0-2) 04/17/25 23:50 Urine WBC 0-5 /hpf (0-5) 04/17/25 23:50 Ur Squamous Epith Cells 0-5 /hpf (0-5) 04/17/25 23:50 Amorphous Sediment Not Reportable 04/17/25 23:50 Urine Bacteria None seen /hpf (NONE) 04/17/25 23:50 Hyaline Casts 0-4 /lpf H 04/17/25 23:50 Salicylates < 0.3 mg/dL (3-10) L 04/17/25 22:45 Urine Opiates Screen Negative ng/mL (Negative) 04/17/25 23:50 Acetaminophen < 5.0 ug/mL (10-30) L 04/17/25 22:45 Ur Barbiturates Screen Negative ng/mL (Negative) 04/17/25 23:50 Ur Phencyclidine Scrn Negative ng/mL (Negative) 04/17/25 23:50 Ur Amphetamines Screen Negative ng/mL (Negative) 04/17/25 23:50 U Benzodiazepines Scrn Negative ng/mL (Negative) 04/17/25 23:50 Urine Cocaine Screen Negative ng/mL (Negative) 04/17/25 23:50 U Marijuana (THC) Screen Negative ng/mL (Negative) 04/17/25 23:50 Ethyl Alcohol < 10 mg/dL (0-10) 04/17/25 22:45 No radiology studies performed this visit Discharge Plan Discharge Patient Disposition: Admitted As Inpatient Admit Provider: Raoul Arreola Clinical Impression: Suicidal ideation, Agitation, Generalized anxiety disorder Condition: Stable Discharge Diet: Usual diet Discharge Activity: Resume usual activity Coding Level of Care Code ED Critical Care Nurse for Chg Fwd Documented by User: Michael Ortega DO 04/18/25 03:36 HPI - Psych 2 General: Chief Complaint: Psychiatric Symptoms Stated Complaint: DEPRESSION Time Seen by Provider: 04/17/25 21:55 Related Data Previous Rx's ?Medication ?Instructions ?Recorded risperidone 2 mg tablet 2 mg PO BEDTIME 30 days #90 tabs 11/30/24 divalproex 250 mg tablet,delayed 250 mg PO .7 pm 30 da ys #90 tabs 02/09/25 release hydroxyzine HCl 50 mg tablet 50 mg PO BID PRN anxiety #60 tabs 02/09/25 propranolol 10 mg tablet 5 mg (1/2 x 10 mg) PO .morni ng #15 03/09/25 tabs Allergies Allergy/AdvReac Type Severity Reaction Status Date / Time bupropion AdvReac Intermediate Unknown Verified 03/09/25 09:56 [facility] ED 2 PFSH: Medical History Generalized anxiety disorder Bipolar II disorder COVID-19 Bereavement loss of mother on 01/08/24 Nausea and vomiting Psychiatric care Cerebral palsy Surgical History Hx of removal of testicle Right Orchiectomy at age 3. History of dental surgery Family History Other CAD (coronary artery disease) Hypertension Social History (Updated 06/15/24 @ 15:27 by Janki Garcia RN) Smoking and tobacco/nicotine status: never used tobacco/nicotine Alcohol intake: never Substance/Drug Use: never Adopted: No Caregiver/support person: Yes Lives independently: No Household members: other Details: [facility] Housing: Assisted Living Facility Marital status: Single Number of children: 0 Highest education level completed: High School Graduate service: No Current occupational status: disabled Pets and animals: Yes Pets & animals: cat(s) Leisure activites: music and other Leisure activities details: watch TV Sexually active: No Do you think of yourself as: Straight/Heterosexual Current gender identity: Male Madie/Shinto: Uatsdin Special madie needs: No Agree to transfusion: Yes Course 2 Vital Signs: Vital signs: Vital Signs Temperature 98.6 F 04/17/25 21:45 Pulse Rate 78 04/18/25 01:08 Respiratory Rate 16 04/18/25 01:08 Blood Pressure 108/76 04/18/25 01:08 Pulse Oximetry 97 04/18/25 01:08 Oxygen Delivery Me thod Room Air 04/18/25 01:08 [facility] - Psych Medical Decision Making Will obtain medical screening and contact psychiatrist. Affidavit has been filled out by myself. Patient is voluntary at this juncture, his own power of trade mark attorney, and therefore will defer to psych for further decision-making regarding his impulsive verbalization of how he did not want to live. Discussed with Dr. Arreola, and he accepted as admission. Patient originally seen by the physician floral assistant. I agree with her history, evaluation, and management. Patient will go to the neuropsychiatric unit. Orders have been written. Medically he is stable. Lab Data 04/17/25 22:45 04/17/25 22:45 Laboratory Results WBC 11.31 10^3/uL (3.29-11.43) 04/17/25 22:45 RBC 4.72 10^6/uL (3.85-5.65) 04/17/25 22:45 Hgb 15.30 g/dL (11.27-16.99) 04/17/25 22:45 Hct 43.8 % (37-53) 04/17/25: MCV 92.8 fl (82-101) 04/17/25 22:45 MCH 32.4 pg (27-33) 04/17/25 22:45 MCHC 34.9 g/dL (30-55) 04/17/25 22: RDW 11.8 % (12.1-15.1) L 04/17/25: Plt Count 268 10^3/cmm (157-399) 04/17/25: MPV 10.1 fL (7.4-10.4) 04/17/25 22:45 Neut % (Auto) 69.3 % 04/17/25 22:45 Lymph % (Auto) 23.0 % 04/17/25 22:45 [place] % (Auto) 6.6 % 04/17/25 22:45 Eos % (Auto) 0.3 % 04/17/25:45 Baso % (Auto) 0.5 % 04/17/25:45 Neut # (Auto) 7.84 10^3/uL (1.8-7.7) H 04/17/25:45 Lymph # (Auto) 2.6 10^3/uL (0.8-4.8) 04/17/25 22:45 [place] # (Auto) 0.8 10^3/uL (0.2-0.9) 04/17/25 22:45 Eos # (Auto) 0.0 10^3/uL (0.0-0.8) 04/17/25:45 Baso # (Auto) 0.1 10^3/uL (0.0-0.1) 04/17/25:45 Nucleated RBC % (auto) 0 % 04/17/25: Nucleated RBCs # 0.0 /100WBC 04/17/25 22:45 Sodium 139 mmol/L (136-145) 04/17/25 22:45 Potassium 3.7 mmol/L (3.5-5.1) 04/17/25 22:45 Chloride 102 mmol/L (98-107) 04/17/25 22:45 Carbon Dioxide 23 mmol/L (22-29) 04/17/25 22:45 Anion Gap 17.7 (5-19) 04/17/25 22:45 BUN 11 mg/dL (6-20) 04/17/25 22:45 Creatinine 0.8 mg/dL (0.7-1.2) 04/17/25 22:45 GFR Calculation 116.9 mL/min (90-130) 04/17/25 22:45 Glucose 93 mg/dL (65-115) 04/17/25 22:45 Calculated Osmolality 287 mOsm/kg (285-295) 04/17/25 22:45 Calcium 9.3 mg/dL (8.5-10.5) 04/17/25 22:45 Total Bilirubin 0.4 mg/dL (0.15-1.2) 04/17/25 22:45 AST 12 U/L (0-40) 04/17/25 22:45 ALT 9 U/L (0-41) 04/17/25 22:45 Alkaline Phosphatase 71 U/L (40-130) 04/17/25 22:45 Total Protein 7.6 g/dL (6.6-8.7) 04/17/25 22:45 Albumin 4.6 g/dL (3.5-5.2) 04/17/25:45 Globulin 3.0 g/dL (1.3-4.6) 04/17/25 22:45 TSH 2.54 uIU/mL (0.27-4.20) 04/17/25 22:45 Urine Color Yellow (Yellow) 04/17/25 23:50 Urine Appearance Clear (CLEAR) 04/17/25 23:50 Urine pH 6.5 (5-7) 04/17/25 23:50 Ur Specific [place] 1.020 (1.005-1.030) 04/17/25 23:50 Urine Protein Negative (Negative) 04/17/25 23:50 Urine Glucose (UA) Negative (Normal) 04/17/25 23:50 Urine Ketones 1+ (Negative) H 04/17/25 23:50 Urine Blood Negative (Negative) 04/17/25 23:50 Urine Nitrate Negative (Negative) 04/17/25 23:50 Urine Bilirubin Negative (Negative) 04/17/25 23:50 Urine Urobilinogen 1.0 mg/dL (Negative) 04/17/25 23:50 Ur Leukocyte Esterase Negative (Negative) 04/17/25 23:50 Urine RBC 0-2 /hpf (0-2) 04/17/25 23:50 Urine WBC 0-5 /hpf (0-5) 04/17/25 23:50 Ur Squamous Epith Cells 0-5 /hpf (0-5) 04/17/25 23:50 Amorphous Sediment Not Reportable 04/17/25 23:50 Urine Bacteria None seen /hpf (NONE) 04/17/25 23:50 Hyaline Casts 0-4 /lpf H 04/17/25 23:50 Salicylates < 0.3 mg/dL (3-10) L 04/17/25 22:45 Urine Opiates Screen Negative ng/mL (Negative) 04/17/25 23:50 Acetaminophen < 5.0 ug/mL (10-30) L 04/17/25 22:45 Ur Barbiturates Screen Negative ng/mL (Negative) 04/17/25 23:50 Ur Phencyclidine Scrn Negative ng/mL (Negative) 04/17/25 23:50 Ur Amphetamines Screen Negative ng/mL (Negative) 04/17/25 23:50 U Benzodiazepines Scrn Negative ng/mL (Negative) 04/17/25 23:50 Urine Cocaine Screen Negative ng/mL (Negative) 04/17/25 23:50 U Marijuana (THC) Screen Negative ng/mL (Negative) 04/17/25 23:50 Ethyl Alcohol < 10 mg/dL (0-10) 04/17/25 22:45 Discharge Plan Discharge Patient Disposition: Admitted As Inpatient Admit Provider: Raoul Arreola Clinical Impression: Suicidal ideation, Agitation, Generalized anxiety disorder Condition: Stable Discharge Diet: Usual diet Discharge Activity: Resume usual activity Coding Level of Care Code ED Critical Care Nurse for Fuentes Davis
[2025-04-17 22:50] LABS: Basophils # 0.1 10^3/uL (0.0-0.1); Basophils % 0.5 %; Eosinophils % 0.3 %; Hematocrit 43.8 % (37-53); Lymphocytes # 2.6 10^3/uL (0.8-4.8); Mean Corpuscular HGB Conc 34.9 g/dL (30-55); Mean Corpuscular Hemoglobin 32.4 pg (27-33); Mean Corpuscular Volume 92.8 fl (82-101); Mean Platelet Volume 10.1 fL (7.4-10.4); Monocytes # 0.8 10^3/uL (0.2-0.9); Monocytes % 6.6 %; Neutrophils # 7.84 10^3/uL (1.8-7.7); Neutrophils % 69.3 %; Nucleated Red Blood Cells % 0 %; Platelet Count 268 10^3/cmm (157-399); Red Blood Count 4.72 10^6/uL (3.85-5.65); Red Cell Distribution Width 11.8 % (12.1-15.1); White Blood Count 11.31 10^3/uL (3.29-11.43)
[2025-04-17 23:19] LABS: Alanine Aminotransferase 9 U/L (0-41); Albumin Level 4.6 g/dL (3.5-5.2); Alkaline Phosphatase 71 U/L (40-130); Anion Gap 17.7 (5-19); Aspartate Amino Transferase 12 U/L (0-40); Blood Urea Nitrogen 11 mg/dL (6-20); Calcium 9.3 mg/dL (8.5-10.5); Carbon Dioxide 23 mmol/L (22-29); Chloride 102 mmol/L (98-107); Glomerular Filtration Rate 116.9 mL/min (90-130); Glucose 93 mg/dL (65-115); Osmolality Calculated 287 mOsm/kg (285-295); Potassium 3.7 mmol/L (3.5-5.1); Sodium 139 mmol/L (136-145); Thyroid Stimulating Hormone 2.54 uIU/mL (0.27-4.20); Total Bilirubin 0.4 mg/dL (0.15-1.2); Total Protein 7.6 g/dL (6.6-8.7)
[2025-04-17 23:21] LABS: Acetaminophen < 5.0 ug/mL (10-30); Alcohol Level < 10 mg/dL (0-10); Salicylate < 0.3 mg/dL (3-10)
[2025-04-17] MEDS: OLANZapine 5 mg ODT PO (23:50)
[2025-04-17] MEDS: nicotine 14 mg Patch 1 PATCH TRANSDERMA (23:50)
[2025-04-18 01:08] VITALS: BP 108/76; PULSE 78; RESP 16; O2SAT 97
[2025-04-18 01:19] LABS: Bilirubin Urine Negative (Negative); Blood Urine Negative (Negative); Glucose Urine UA Negative (Normal); Ketones Urine 1+ (Negative); Leukocyte Esterase Urine Negative (Negative); Nitrate Urine Negative (Negative); Protein Urine Negative (Negative); Urine Appearance Clear (CLEAR); Urine Color Yellow (Yellow); pH Urine 6.5 (5-7)
[2025-04-18 01:24] LABS: Add Urine Microscopic? YES; Bacteria Urine None Seen /hpf; Hyaline Casts Urine 0-4 /lpf; RBC Urine 0-2 /hpf (0-2); Squamous Epithelial Cell Urine 0-5 /hpf (0-5); WBC Urine 0-5 /hpf (0-5)
[2025-04-18 01:26] LABS: Amphetamines Screen Urine Negative (Negative); Barbiturates Screen Urine Negative (Negative); Benzodiazepines Screen Urine Negative (Negative); Cocaine Screen Urine Negative (Negative); Opiate Screen Urine Negative (Negative); PCP Screen Urine Negative (Negative); THC Screen Urine Negative (Negative)
[2025-04-18 03:29] VITALS: BP 155/86; PULSE 96; RESP 18; O2SAT 100
[2025-04-18 06:00] VITALS: BP 96/55; PULSE 85; RESP 16; O2SAT 98
[2025-04-18] MEDS: nicotine 21 mg Patch 1 PATCH TRANSDERMA (09:56)
--- NOTE | 2025-04-18 11:30 | P.NPUHP_ITS ---
Providers/Chief Complaint 2 Admitting Physician: Raoul Arreola MD Chief Complaint: DEPRESSION HPI NPU History of Present Illness Luis Tapia is a 24 year old male who presented to the emergency department with the following report: Chief Complaint: Psychiatric Symptoms Stated Complaint: DEPRESSION Time Seen by Provider: 04/17/25 21:55 History of Present Illness: Patient is a 24-year-old gentleman that states he is present because he is more depressed. Denies any suicide ideations. He stated he had a verbal altercation with the staff of the home he is in, and his girlfriend is also present in the same home. He stated that staff was keeping him from his girlfriend, and they were to stay apart for 24 to 48 hours, and he obliged the staff with this, and then staff still would not allow him to see his girlfriend. He states that he got angry and did yell profanities. Denied anything other than a verbal altercation. He does admit that he may need his medications adjusted. I discussed the above with patient's assisted living, [facility], that state that his girlfriend that is also a resident asked for space. Patient denied her space. Assisted-living staff stated patient could not go in the room when she is asked for space. Patient was angry and stated he wanted to hear it from her. Then patient apparently stated he did not want to live anymore, and patient admits this. He stated he immediately took it back. He then stated to staff that they could fuck themselves when he could not see his girlfriend. Staff asked if he wanted to go to the ER, and patient consented to ER visit. Associated symptoms: Reports depression; Deny delusions. He was admitted to the neuropsychiatric unit for definitive treatment of those issues. He is known to [facility] from inpatient and outpatient services. An excerpt of his last inpatient discharge summary from last summer is included below for context and the fact that there have been no substantive changes. He presented today reporting that things have been fine since he left here and moved onto [facility]. But the nidus of this admission is that while there he had developed a relationship with a girl who also lives there. And in recent days or weeks that relationship soured and he did not demonstrate self- control and managing himself and trying to convince her to continue the relationship. He reports that he was really upset and saying stupid things about self-harm and thoughts to kill himself. He denies feeling that way now and reports that he realizes now that he has had some distance from the facility and a good night sleep that he has to except her position. When asked how he would deal with that if she maintained the position that the relationship was over and he said that he called the facility and the message was passed along to him that she would likely continue in this direction of wanting to break up but reports that they could still be friends. He reports that having her friendship will be sufficient and that he will be able to go back there and manage himself. We discussed the fact that he may benefit from this time away to get himself geared into what the new relationship might look like and to be prepared to give her space and not have expectations or demands. He reports his medication is working fine and we discussed the risks, benefits and alternatives of leaving his medication as it is for now and he understood and agreed to proceed as is documented in this note. Per his 05/11/2024 [facility] inpatient psychiatric discharge summary: Discharge Diagnosis (1) Bipolar II disorder: Status: Chronic (2) Generalized anxiety disorder: Status: Chronic (3) Nausea and vomiting: Status: Inactive Qualifiers: Vomiting type: psychogenic vomiting Qualified Code(s): F50.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 (4) COVID-19: Status: Inactive (5) Cerebral palsy: Status: Chronic Qualifiers: Cerebral palsy type: unspecified type Qualified Code(s): G80.9 - Cerebral palsy, unspecified (6) Bereavement: Status: Acute Permanent problem details: loss of mother on 01/08/24 (7) Depression: Status: Resolved Reason for Visit Reason for Visit: psych combative with staff Brief History: History of Present Illness Luis Tapia is a 23 year old male who discharged from [facility] on 04/28/2024 directly to [facility] for the first time. He had been admitted to the neuropsychiatric unit on 04/23/2024 after he had had disruptive behavior in the home of his sister and had engaged in threatening behavior to the extent that the sister was uncomfortable with the patient returning home. Consequently, patient's sister had found a residential care facility for the patient to attend as she had also recently filed an ex partner today and the patient was not welcome to return home. Shortly after discharge here on 04/28/2024, the patient reports that he arrived at the residential home and reports that he was upset that he was not able to make phone calls whenever he wished there. He acknowledges having become upset and disruptive there. He states that he had become rowdy and was engaged in verbal attacks towards the staff. Later approximately 24 hours later, he had another episode where he became angry and he had made threats towards others including staff at the [facility] and the patient was brought to the emergency department for further evaluation. The patient had reported that he often struggled with following rules and expressed frustration that the current placement had established limits on when he could make phone calls to family members. He had stated that the police had come into the residential facility in efforts of calming down the situation and the patient had come to the emergency department on 04/30/2024. The residential facility had informed that the patient was not welcome to return home at this time. He reports having no thoughts currently of hurting himself or others. He had endorsed compliance with his medications that had been unchanged throughout his hospital stay for approximately 1 week from April 23, 2024 to April 28, 2024. No substantial changes have been reported by the patient other than the change in his new living situation as stated above. Current medications: Depakote 250mg daily, Seroquel 400mg at night, Hydroxyzine 25mg tid Excerpt from NPU inpatient evaluation from [facility] summary from 04/28/24. History of Present Illness Luis Tapia is a 23 year old male who presented to the emergency department with the following report: Chief Complaint: Psychiatric Symptoms Stated Complaint: altercation, mhe Time Seen by Provider: 04/23/24 07:29 Source: patient Mode of arrival: EMS History of Present Illness: 23-year-old male presents emergency room after an altercation with his sister at home. He evidently lost a pet he was trying to find it he wanted his sister to help but she was sitting in a car and he was being at the window she called the police. Police arrived. So it disruptive but not threatening is no homicidal or suicidal intent. He usually is seen by [facility]. He is evidently in the process of applying to live in a skilled nursing which she wants to be able to do but has not yet filled out the application. He states he is not regular take his medications because he gets caught up and watching social media for hours and forgets by his own admission. He does not have anyone evidently that helps him with remembering his medication and had not taken medication regularly for some time now. Associated symptoms: Deny auditory hallucinations, visual hallucinations, homicidal ideation or suicidal ideation. He was admitted to the neuropsychiatric unit for definitive treatment of those issues. He is known to the psychiatric community here through inpatient and outpatient services with his last discharge 2 and half weeks ago in March. An excerpt of his discharge summary is included below for context and history given that he is a limited historian and there have been no substantive changes. He presents on a 96-hour hold secondary to reports of aggressive circumstances at home and him being off his medication for a period of time. We discussed the reported plan from him and his family to get him restarted on his medications and that their work to find him a reasonable residential setting to decrease the friction in the family related to sister being in charge of him has been accomplished. This last piece of information was not known until after the hospitalization. It is unclear if the facility is ready for him today or if there is a date in the very near future. He presents today reporting: Chief complaint The patient was brought into the hospital due to a conflict with his sister, aggressive behavior, and irregular intake of his prescribed medication. The family wanted to ensure that the patient was in a good place with his medication. The patient has been accepted into an independent living facility, [facility], where he will move directly after discharge. History of the present complaint The patient reported that they have not been taking their medication regularly. This irregularity in medication intake seems to be due to a lack of a consistent routine, as the patient mentioned that they often forget to take their medication when it gets late and they are tired. This has developed into a pattern of behavior for the patient. The patient was recently admitted to the hospital following a conflict with their sister, which reportedly involved some aggressive behavior. The patient's family wanted to ensure that they were in a good place with their medication, which led to their hospitalization. The patient has been accepted into an independent living facility, [facility], where they will move directly after being discharged from the hospital. The patient has been admitted to psychiatric facilities four times over the course of their life, including two admissions in 2017. They also receive outpatient services at [facility]. The patient denied any use of cannabis, or any other drugs. The patient did not report any new issues or concerns since their last visit two and a half weeks ago, other than the aforementioned acceptance into the independent living program, the conflict with their sister, and their irregular medication intake. The plan is to restart the patient's medication regimen and monitor them over the weekend. If all goes well, the patient will be discharged to the independent living facility on Friday. The patient did not express any concerns or additional information that needed to be discussed. Mental health history The patient has been hospitalized in psychiatric facilities four times over the course of his life, including two instances in 2016. He also receives outpatient services at [facility]. The patient has been prescribed medication, which he admits to not taking regularly. When he does take the medication as prescribed, it works well for him. Social history The patient denies any use of alcohol, cannabis, or any other drugs. He is due to move into an independent living facility after discharge from the hospital. Per his 04/07/2024 [facility] inpatient psychiatric discharge summary: Discharge Diagnosis (1) Depression: Status: Acute (2) Bipolar II disorder: Status: C hronic Reason for Visit Reason for Visit: DEPRESSION Brief History: History of Present Illness Luis Tapia is a 23 year old male with a history of bipolar 2 disorder who presented to the emergency department stating that he was having worsening depression and stated that he was not able to handle things at home. Patient was admitted to the neuropsychiatric unit for further evaluation and treatment. He reports that he has been more depressed since his mother in December of this year. He reports that he has been isolating himself. He states that he has been having more sadness as he cries all of the time. He reports that that he has low energy and states that his mood has been getting worse nearly every week despite him reporting compliance with his medications. He denies any drug or alcohol use. He was admitted to the neuropsychiatric unit for further evaluation and treatment. He had reported that he had thoughts of suicide and stated that he did not care if he was alive or . He reports that his mood has been down for several months. He had endorsed having periods of time in the past where he would be up for 3 to 4 days at a time and had racing thoughts and increased periods of irritability. Previous records had indicated that the patient had periods of time where he would have decreased need for sleep, productive speech and increased irritability and violent outburst along with destruction of property. He had denied any hypomanic symptoms recently. He reports no change in appetite. He does report that he frequently feels tired and does not wake up feeling refreshed. He reports that he will sleep all day. He reports that he has been crying more frequently. He denies any psychotic symptoms. He denies any history of recent destruction of property. Inpatient psychiatric history: Patient reports 3 previous inpatient psychiatric hospitalizations to having occurred in 2017 on the neuropsychiatric unit here in [facility]. Outpatient psychiatric history: He follows Maddie Venegas for medication management at [facility]. Current diagnoses includes intermittent explosive disorder, and bipolar 2 disorder. Drug and alcohol history: None reported Medical history: Cerebral palsy Surgical history: Right orchiectomy, history of dental surgery, history of tendon elongation in March 2011 Current medications: Seroquel 400 mg at night Allergies: No known drug allergies Legal history: admits past history of arrested for domestic violence in 2017, completed successfully 40 hours of community service and anger management classes and paid $500 fine. Family psychiatric history: Maternal: Grandmother-Bipolar Mother-Depression, anxiety, Panic attacks with Agoraphobia, PTSD ,Twin sister-depression and anxiety ,Brother-depression and anxiety Social history: Patient reports that he had been born in [place] and was raised by his mother. He had reported that he had been diagnosed with cerebral palsy. He had received special education services and received his diploma from [place] [employer] later while receiving additional services for his learning disability. He has 1 older brother. He currently lives in [facility] with his sister. He had reported living with his mother most of his life until her in December 2023. He had minimized any history of sexual physical or emotional abuse. 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 Hospital Course During the hospitalization, the patient had routine laboratory studies which were within normal limits except for a few outliers. Additionally, there was a general medical evaluation which was also within normal limits and revealed no new acute processes. At the time of discharge, lethality was denied and psychosis was resolving. Mood and anxiety were well managed. The patient was started on Wellbutrin XL 150mg in am to target depression and seroquel was increased from 400mg daily to 500mg prior to discharge. The patient endorsed a plan to avoid all drugs of abuse and follow up with the aftercare recommendations of the treatment team. The patient was evaluated and deemed to be absent credible lethality and had achieved the maximum benefit from an inpatient hospitalization, and so was discharged. He reported improved mood at the time of discharge. Depakote was discontinued at the time of discharge. Hospital Course Hospital Course Patient slowly acclimated to the individual, group and milieu therapies provided. He presented with struggles related to his residence and having control of his impulses. The plan was initiated to get him placed in a RCF. Seroquel was discontinued, Depakote was increased Vistaril was added and Risperdal was initiated and titrated to 2 mg p.o. nightly. He worked with the social work team to get appropriate outpatient services and follow-ups. Additionally they assisted him in getting connected to a new RCF. He had significant improvement during his stay and was able to contract for safety outside the hospital prior to discharge. During the hospitalization, he had routine laboratory studies which were within normal limits except for a few outliers. Additionally he had a physical examination which was also within normal limits and revealed no new acute processes. At the time of discharge, he denied psychosis or lethality. His mood and anxiety were well-managed. Patient endorsed a plan to avoid all drugs of abuse and follow-up with the aftercare recommendations of the treatment team. Patient was evaluated and deemed to be absent credible lethality, and obtained maximal benefit from inpatient hospitalization, so he was discharged. Meds NPU Home Medications ?Medication ?Instructions ?Recorded ?Confirmed ?Last Taken ?Type risperidone 2 mg tablet 2 mg PO BEDTIME 30 days #90 tabs 11/30/24 04/18/25 Unknown Rx hydroxyzine HCl 50 mg tablet 50 mg PO BID PRN anxiety #60 tabs 02/09/25 04/18/25 Unknown Rx divalproex 250 mg tablet,delayed 750 mg PO QPM 5 04/18/25 Unknown History release propranolol 10 mg tablet 5 mg PO DAILY 06/23/25 06/23 /25 Unknown History Allergies Allergy/AdvReac Type Severity Reaction Status Date / Time bupropion AdvReac Intermediate Unknown Verified 03/09/25 09:56 PFSH NPU 2 PFSH: Medical History Generalized anxiety disorder Bipolar II disorder COVID-19 Bereavement loss of mother on 01/08/24 Nausea and vomiting Psychiatric care Cerebral palsy Surgical History Hx of removal of testicle Right Orchiectomy at age 3. History of dental surgery Family History Other CAD (coronary artery disease) Hypertension Social History (Updated 06/15/24 @ 15:27 by Janki Garcia RN) Smoking and tobacco/nicotine status: never used tobacco/nicotine Alcohol intake: never Substance/Drug Use: never Adopted: No Caregiver/support person: Yes Lives independently: No Household members: other Details: [facility] Housing: Assisted Living Facility Marital status: Single Number of children: 0 Highest education level completed: High School Graduate service: No Current occupational status: disabled Pets and animals: Yes Pets & animals: cat(s) Leisure activites: music and other Leisure activities details: watch TV Sexually active: No Do you think of yourself as: Straight/Heterosexual Current gender identity: Male Madie/Amish: Jainism Special madie needs: No Agree to transfusion: Yes Mental Status Exam 2 MSE Comments: This is an underweight white male in hospital scrubs with adequate grooming and limited eye contact. No abnormal movements except for a somewhat characteristic stride consistent with CP with limited contracture notable in hands. Mild psychomotor retardation noted. Cooperative with exam in mild distress. Speech was slightly decreased rate and volume with some characteristic fullness of tongue. Mood described as okay, affect slightly subdued. Thought process was linear and organized. Thought content: Patient denies suicidal or homicidal ideation, there were no delusions reported or noted, he denied any auditory or visual hallucinations. Attention and concentration appeared intact and memory appeared mostly reliable but none were formally tested. He is alert and oriented x 3. Insight was poor and judgment is poor impulse control is impaired. Vitals/I&O/Wt Last Vital Signs Temp 98.6 F 04/17/25 21:45 Pulse 85 04/18/25 06:00 Resp 16 04/18/25 06:00 BP 96/55 04/18/25 06:00 Pulse Ox 98 04/18/25 06:00 O2 Del Method Room Air 04/18/25 03:34 Weight last 48 hrs Weight 54.431 kg Data NPU 04/17/25 22:45 04/17/25 22:45 A&P Assessment and plan (1) Bipolar II disorder: (2) Generalized anxiety disorder: (3) Nausea and vomiting: (4) COVID-19: (5) Cerebral palsy: (6) Bereavement: (7) Depression: (8) Partner relational problem: (9) Suicidal ideation: Plan 24-year-old male with CP recently discharged almost a year ago to [facility] admitted with depression, frustration and reports of suicidal thoughts secondary to break-up with a female in his facility and not giving her the appropriate space to have comfort and safety in their home. He presents currently under guardianship by sister. 1. ?Continue current medication 2.??Engage patient in milieu, individual and group therapy. 3.??Continue every 15 minute checks for safety. 4. Obtain collateral information. PDMP PDMP Reviewed: Not Reviewed Involuntary Hold Information 2 96 Hour Hold: 96 Hour Involuntary Admission: Yes Attestations NPU 2 Medical Necessity Statement*: Inpatient hospitalization is medically necessary and the clinically appropriate intervention at this time.? We will monitor/initiate medications and make changes as indicated.? The patient will be in the hospital for over 2 midnights.? The patient?s likely length of stay 2-4 days. Coding Level of Care Code Acute Code for g Fwd Diagnoses Bipolar II disorder F31.81 Generalized anxiety disorder F41.1 Psychogenic vomiting with nausea F50.89 Vomiting type: psychogenic vomiting COVID-19 U07.1 Cerebral palsy, unspecified type G80.9 Cerebral palsy type: unspecified type Bereavement Z63.4 Depression F32.A Partner relational problem Z63.0 Suicidal ideation R45.851
[2025-04-18 14:00] VITALS: BP 108/71; PULSE 107; RESP 17; TEMP 36.9; O2SAT 97
[2025-04-18] MEDS: divalproex DR 250 mg Tablet 750 MG PO (17:51)
[2025-04-18 19:21] VITALS: BP 135/88; PULSE 108; RESP 18; TEMP 36.7; O2SAT 98
[2025-04-18] MEDS: risperiDONE 2 mg Tablet PO (19:49)
[2025-04-19 06:00] VITALS: BP 129/76; PULSE 62; RESP 16; O2SAT 98
[2025-04-19] MEDS: nicotine 21 mg Patch 1 PATCH TRANSDERMA (09:47)
--- NOTE | 2025-04-19 10:00 | P.NPUPN_ITS ---
Subjective NPU 2 Subjective: Patient presented today reporting that things are going to be fine. We discussed that tentative but likely plan for discharge tomorrow which made him happy. We discussed proceeding with no medication changes and he reports that he is doing fine and does not feel like he there needs to be any changes. He denied any side effects to his medications and he reports that he will be able to manage the situation back at his facility. Mental Status Exam 2 MSE Comments: This is an underweight white male in hospital scrubs with adequate grooming and limited eye contact. No abnormal movements except for a somewhat characteristic stride consistent with CP with limited contracture notable in hands. Mild psychomotor retardation noted. Cooperative with exam in mild distress. Speech was slightly decreased rate and volume with some characteristic fullness of tongue/dysarthria. Mood described as I will be fine, affect slightly subdued. Thought process was linear and organized. Thought content: Patient denies suicidal or homicidal ideation, there were no delusions reported or noted, he denied any auditory or visual hallucinations. Attention and concentration appeared intact and memory appeared mostly reliable but none were formally tested. He is alert and oriented x 3. Insight was poor and judgment is poor impulse control is impaired. Vitals/I&O/Wt Last Vital Signs Temp 98.1 F 04/18/25 19:21 Pulse 62 04/19/25 06:00 Resp 16 04/19/25 06:00 BP 129/76 04/19/25 06:00 Pulse Ox 98 04/19/25 06:00 O2 Del Method Room Air 04/18/25 14:00 Weight last 48 hrs Weight 54.431 kg Data NPU 04/17/25 22:45 04/17/25 22:45 A&P Assessment and plan (1) Bipolar II disorder: (2) Generalized anxiety disorder: (3) Nausea and vomiting: (4) COVID-19: (5) Cerebral palsy: (6) Bereavement: (7) Depression: (8) Partner relational problem: (9) Suicidal ideation: Plan 24-year-old male with CP recently discharged almost a year ago to [facility] admitted with depression, frustration and reports of suicidal thoughts secondary to break-up with a female in his facility and not giving her the appropriate space to have comfort and safety in their home. He presents currently under guardianship by sister. 1. ?Continue current medication 2.??Engage patient in milieu, individual and group therapy. 3.??Continue every 15 minute checks for safety. 4. Obtain collateral information. 5. Tentative plan for discharge tomorrow. PDMP PDMP Reviewed: Not Reviewed Involuntary Hold Information 2 Hold Status: Legal Status: Active Guardianship Date/Time Hold Expires: vol w/ aff - guardian? 96 Hour Hold: 96 Hour Involuntary Admission: Yes Attestations NPU 2 Medical Necessity Statement*: Inpatient hospitalization is medically necessary and the clinically appropriate intervention at this time.? We will monitor/initiate medications and make changes as indicated.? The patient will be in the hospital for over 2 midnights.? The patient?s likely length of stay 1-3 days. Coding Level of Care Code Acute Code for [facility] Fwd Diagnoses Bipolar II disorder F31.81 Generalized anxiety disorder F41.1 Psychogenic vomiting with nausea F50.89 Vomiting type: psychogenic vomiting COVID-19 U07.1 Cerebral palsy, unspecified type G80.9 Cerebral palsy type: unspecified type Bereavement Z63.4 Depression F32.A Partner relational problem Z63.0 Suicidal ideation R45.851
[2025-04-19 14:00] VITALS: BP 125/82; PULSE 109; RESP 18; TEMP 36.8; O2SAT 97
[2025-04-19] MEDS: divalproex DR 250 mg Tablet 750 MG PO (17:19)
[2025-04-19 19:42] VITALS: BP 141/78; PULSE 112; RESP 18; O2SAT 96
[2025-04-19] MEDS: risperiDONE 2 mg Tablet PO (19:55)
[2025-04-19] MEDS: hyDROXYzine 25 mg Capsule 50 MG PO (20:28)
[2025-04-20 06:00] VITALS: BP 108/73; PULSE 95; RESP 17; TEMP 36.5; O2SAT 98
[2025-04-20] MEDS: hyDROXYzine 25 mg Capsule 50 MG PO (06:33)
[2025-04-20] MEDS: propranolol 20 mg Tablet 5 MG PO (08:53)
[2025-04-20] MEDS: nicotine 21 mg Patch 1 PATCH TRANSDERMA (09:01)
--- NOTE | 2025-04-20 11:09 | P.NPUDS_ITS ---
Diagnoses at Discharge Discharge Diagnosis (1) Bipolar II disorder: Status: Chronic (2) Generalized anxiety disorder: Status: Chronic (3) Nausea and vomiting: Status: Inactive Qualifiers: Vomiting type: psychogenic vomiting Qualified Code(s): F50.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 (4) COVID-19: Status: Inactive (5) Cerebral palsy: Status: Chronic Qualifiers: Cerebral palsy type: unspecified type Qualified Code(s): G80.9 - Cerebral palsy, unspecified (6) Bereavement: Status: Acute Permanent problem details: loss of mother on 01/08/24 (7) Depression: Status: Resolved (8) Partner relational problem: Status: Acute (9) Suicidal ideation: Status: Acute Reason for Visit Reason for Visit: DEPRESSION Involuntary Hold Information Hold Status: Legal Status: Active Guardianship Date/Time Hold Expires: vol w/ aff - guardian? 96 Hour Hold: 96 Hour Involuntary Admission: Yes Mental Status Exam MSE Comments: This is an underweight white male in hospital scrubs with adequate grooming and limited eye contact. No abnormal movements except for a somewhat characteristic stride consistent with CP with limited contracture notable in hands. Mild psy chomotor retardation noted. Cooperative with exam in mild distress. Speech was slightly decreased rate and volume with some characteristic fullness of tongue/dysarthria. Mood described as I will be fine, affect slightly subdued. Thought process was linear and organized. Thought content: Patient denies suicidal or homicidal ideation, there were no delusions reported or noted, he denied any auditory or visual hallucinations. Attention and concentration appeared intact and memory appeared mostly reliable but none were formally tested. He is alert and oriented x 3. Insight was poor and judgment is poor impulse control is impaired. Discharge Data Studies Completed and Pending: Laboratory Results WBC 11.31 10^3/uL (3. 29-11.43) 04/17/25 22:45 RBC 4.72 10^6/uL (3.8 5-5.65) 04/17/25 22:45 Hgb 15.30 g/dL (11.27 -16.99) 04/17/25 22:45 Hct 43.8 % (37-53) 04/17/25 22:45 MCV 92.8 fl (82-101) 04/17/25 22:45 MCH 32.4 pg (27-33) 04/17/25 22:45 MCHC 34.9 g/dL (30-55) 04/17/25 22:45 RDW 11.8 % (12.1-15.1 ) L 04/17/25 22:45 Plt Count 268 10^3/cmm (157 -399) 04/17/25 22:45 MPV 10.1 fL (7.4-10.4 ) 04/17/25 22:45 Neut % (Auto) 69.3 % 04/17/25 22:45 Lymph % (Auto) 23.0 % 04/17/25 22:45 [place] % (Auto) 6.6 % 04/17/25 22:45 Eos % (Auto) 0.3 % 04/17/25:45 Baso % (Auto) 0.5 % 04/17/25:45 Neut # (Auto) 7.84 10^3/uL (1.8 -7.7) H 04/17/25:45 Lymph # (Auto) 2.6 10^3/uL (0.8- 4.8) 04/17/25 22:45 [place] # (Auto) 0.8 10^3/uL (0.2- 0.9) 04/17/25 22:45 Eos # (Auto) 0.0 10^3/uL (0.0- 0.8) 04/17/25:45 Baso # (Auto) 0.1 10^3/uL (0.0- 0.1) 04/17/25:45 Nucleated RBC % (a uto) 0 % 04/17/25:45 Nucleated RBCs # 0.0 /100WBC 04/17/25 22:45 Sodium 139 mmol/L (136-1 45) 04/17/25 22:45 Potassium 3.7 mmol/L (3.5-5 .1) 04/17/25:45 Chloride 102 mmol/L (98-10 7) 04/17/25 22:45 Carbon Dioxide 23 mmol/L (22-29) 04/17/25 22:45 Anion Gap 17.7 (5-19) 04/17/25 22:45 BUN 11 mg/dL (6-20) 04/17/25:45 Creatinine 0.8 mg/dL (0.7-1. 2) 06/22/25 22:45 GFR Calculation 116.9 mL/min (90- 130) 04/17/25 22:45 Glucose 93 mg/dL (65-115) 04/17/25 22:45 Calculated Osmolal ity 287 mOsm/kg (285- 295) 04/17/25 22:45 Calcium 9.3 mg/dL (8.5-10 .5) 04/17/25 22:45 Total Bilirubin 0.4 mg/dL (0.15-1 .2) 04/17/25 22:45 AST 12 U/L (0-40) 04/17/25 22:45 ALT 9 U/L (0-41) 04/17/25 22:45 Alkaline Phosphata se 71 U/L (40-130) 04/17/25 22:45 Total Protein 7.6 g/dL (6.6-8.7 ) 04/17/25 22:45 Albumin 4.6 g/dL (3.5-5.2 ) 04/17/25 22:45 Globulin 3.0 g/dL (1.3-4.6 ) 04/17/25 22:45 TSH 2.54 uIU/mL (0.27 -4.20) 04/17/25 22:45 Urine Color Yellow (Yellow) 04/17/25 23:50 Urine Appearance Clear (CLEAR) 04/17/25 23:50 Urine pH 6.5 (5-7) 04/17/25 23:50 Ur Specific Gravit y 1.020 (1.005-1.0 30) 04/17/25 23:50 Urine Protein Negative (Negati ve) 04/17/25 23:50 Urine Glucose (UA) Negative (Normal ) 04/17/25 23:50 Urine Ketones 1+ (Negative) H 04/17/25 23:50 Urine Blood Negative (Negati ve) 04/17/25 23:50 Urine Nitrate Negative (Negati ve) 04/17/25 23:50 Urine Bilirubin Negative (Negati ve) 04/17/25 23:50 Urine Urobilinogen 1.0 mg/dL (Negati ve) 04/17/25 23:50 Ur Leukocyte Rasheeda ase Negative (Negati ve) 04/17/25 23:50 Urine RBC 0-2 /hpf (0-2) 04/17/25 23:50 Urine WBC 0-5 /hpf (0-5) 04/17/25 23:50 Ur Squamous Epith Cells 0-5 /hpf (0-5) 04/17/25 23:50 Amorphous Sediment Not Reportable 04/17/25 23:50 Urine Bacteria None seen /hpf (N ONE) 04/17/25 23:50 Hyaline Casts 0-4 /lpf H 04/17/25 23:50 Salicylates < 0.3 mg/dL (3-10 ) L 04/17/25 22:45 Urine Opiates Scre en Negative ng/mL (N egative) 04/17/25 23:50 Acetaminophen < 5.0 ug/mL (10-3 0) L 04/17/25 22:45 Ur Barbiturates Sc reen Negative ng/mL (N egative) 04/17/25 23:50 Ur Phencyclidine S crn Negative ng/mL (N egative) 04/17/25 23:50 Ur Amphetamines Sc reen Negative ng/mL (N egative) 04/17/25 23:50 U Benzodiazepines Scrn Negative ng/mL (N egative) 04/17/25 23:50 Urine Cocaine Scre en Negative ng/mL (N egative) 04/17/25 23:50 U Marijuana (THC) Screen Negative ng/mL (N egative) 04/17/25 23:50 Ethyl Alcohol < 10 mg/dL (0-10) 04/17/25 22:45 Vitals: Last Vital Signs Temp 97.7 F 04/20/25 06:00 Pulse 95 04/20/25 06:00 Resp 17 04/20/25 06:00 BP 108/73 04/20/25 06:00 Pulse Ox 98 04/20/25 06:00 O2 Del Method Room Air 04/20/25 06:00 Discharge Plan Discharge Patient Disposition: Home Condition: Stable Prescriptions: Continued risperidone 2 mg tablet 2 mg PO BEDTIME 30 Days Qty: 90 2RF Rx Instructions: Take one tablet at bedtime hydroxyzine HCl 50 mg tablet 50 mg PO BID PRN (Reason: anxiety) Qty: 60 3RF Rx Instructions: May take one tablet twice per day as needed for anxiety divalproex 250 mg tablet,delayed release (DR/EC) 750 mg PO QPM Rx Instructions: Take three tablets at Q pm propranolol 10 mg tablet 5 mg PO DAILY Rx Instructions: Take half tablet every morning Discharge Orders: Discharge Order (Routine); Ordered 04/20/25 Ordered By: Raoul Arreola Discharge Diet: Usual diet and Regular Discharge Activity: Resume usual activity Patient Instructions: Opioid Safety, Patient Portal & Rei Instructions Discharge Attestations NPU Time Spent in Discharge Care*: less than 30 min Specific Discharge Activities: Specific discharge activities: educating patient, discussing with returned case inspector/social workers/dc planners, do cumenting/other paperwork and evaluating patient/reviewing data Coding Level of Care Code Acute Code for [facility] Fwd Diagnoses Bipolar II disorder F31.81 Generalized anxiety disorder F41.1 Psychogenic vomiting with nausea F50.89 Vomiting type: psychogenic vomiting COVID-19 U07.1 Cerebral palsy, unspecified type G80.9 Cerebral palsy type: unspecified type Bereavement Z63.4 Depression F32.A Partner relational problem Z63.0 Suicidal ideation R45.851
[2025-04-20 11:58] VITALS: BP 118/86; PULSE 99; RESP 17; TEMP 36.4; O2SAT 100
--- NOTE | 2025-04-20 13:09 | DCPLANNER ---
IMM completed 04/20/2025 @ 1000 and pt given a copy of rights.
== END 2025-04-20 14:05 | disposition home or self-care (01) | DRG 885 ==
LOC: ER 04-18 02:37 → NP 04-18 03:04
PROVIDERS: Admitting Provider Psychiatry & Neurology Psychiatry; Emergency Provider Physician Assistant; Visit Provider Psychiatry & Neurology Psychiatry
DX: F31.81 Bipolar II disorder (principal); Z68.1 Body mass index [BMI] 19.9 or less, adult; R45.851 Suicidal ideations; F41.1 Generalized anxiety disorder; F50.89 Other specified eating disorder; G80.9 Cerebral palsy, unspecified; Z63.4 Disappearance and death of family member; Z63.0 Problems in relationship with spouse or partner; Z86.16 Personal history of COVID-19
CPT/HCPCS: 36415; 80053; 80306; 80307; 81001; 84443; 85025; 97150; 97165; 99285; J9999

== ENCOUNTER 2025-04-21 21:01 | Inpatient (IN) | payer MEDICARE, MEDICAID, SELFPAY ==
[2025-04-08 16:07] VITALS: BP 115/77; BMI 18.2
[2025-04-21 21:16] VITALS: BP 114/80; PULSE 92; RESP 18; TEMP 36.9; O2SAT 96; BMI 18.2
--- OUTSIDE RECORDS SUMMARY | 2025-04-21 21:31 | XMS_ITS | Encounter Summary ---
Author Organization [facility] Address [address] [place] [address] Care Team Providers Care Sub Assembly Team Worker Name Role Phone Chester Vasquez MD Primary Care Provider [phone] [phone] Encounter Details Date Type Department Care Team (Latest Contact Info) Description 08/07/2000 Outpatient Historical [facility] Pediatric [facility]rology[place] [address] [place] [address] [place] [address] [facility] [address] [place] [address] Infantile cerebral palsy, unspecified (CMS/HCC) (Primary Dx) Social History Tobacco Use Types Packs/Day Years Used Date Smoking Tobacco: Never Assessed Sex and Gender Information Value Date Recorded Sex Assigned at Not on file 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
--- OUTSIDE RECORDS SUMMARY | 2025-04-21 21:31 | XMS_ITS | Clinical Summary ---
Author Organization [facility] Address [address] [facility] Attn: [place] [address] Care Team Providers Care Hose Turner Name Role Phone Chester Vasquez MD Primary Care Provider [phone] [phone] Allergies No known active allergies Medications OTHER B/L AFO custom molded, solid ankle. 2 Each 0 03/30/2015 Active Active Problems Problem Noted Date Diagnosed Date Scissor gait 04/16/2015 Spasticity 04/16/2015 ADD (attention deficit disorder) 09/13/2014 Cerebral palsy 09/13/2014 Encounters Date Type Department Care Team Description 04/13/2025 External Device Data STL ABSTRACTION Provider, Abstract 03/17/2025 External Device Data STL ABSTRACTION Provider, Abstract 03/17/2025 External Device Data STL ABSTRACTION Provider, Abstract from Last 3 Months Immunizations Immunization Administration Dates Next Due (M-M-R II/PRIORIX)(12 MO UP) MEASLES, MUMPS AND RUBELLA VIRUS VACCINE, 0.5 ML IM/SUBCUT 03/06/2000 (VARIVAX)(12 MOS UP)VARICELL A VIRUS VACCINE (PF) 0.5 ML, SUB CUT 12/06/1999 Dt Dtp Dtap Vaccine 03/06/2000, 9,06/15/1999,1998 HIB, Unspecified Formulation 03/06/2000, 08/10/1999,06/15/1999,1998 Hepatitis B Vaccine 08/10/1999,04/02/1999,1998 IPV/OPV 03/06/2000,06/15/1999,04/02/1999 Social History Tobacco Use Types Packs/Day Years Used Date Smoking Tobacco: Never Smokeless Tobacco: Never Alcohol Use Standard Drinks/Week Comments Not Asked 0 (1 standard drink = 0.6 oz pur e alcohol) Sex and Gender Information Value Date Recorded Sex Assigned at Not on file Legal 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 Male 6:33 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 Gender Identity Not on file Sexual Orientation Not on file Last Filed Vital Signs Vital Sign Reading Time Taken Comments Blood Pressure 127/75 05/08/2015 9:52 AM CDT Pulse 80 05/08/2015 9:52 AM CDT Temperature - - Respiratory Rate - - Oxygen Saturation - - Inhaled Oxygen Concentration - - Weight 42.4 kg (93 lb 8 oz) 05/08/2015 9:52 AM C DT Height 157.5 cm (5' 2.01 ) 05/08/2015 9:52 AM CD T Body Mass Index 17.1 05/08/2015 9:52 AM CDT Plan of Treatment Health Maintenance Due Date Last Done Comments DTAP/TDAP/TD VACCINES (5 - Tdap) 2009 03/06/2000, 08/10/1999, 06/15/1999, Additional history exists HPV VACCINES (1 - Male 3-dos e series) 2013 INFLUENZA VACCINE (#1) 2024 [place]) Preventative Visit/Annual Wellness Visit 10/27/2024 HEPATITIS B VACCINES Completed 08/10/1999, 04/02/1999, 03/03/1999 Insurance [facility] MEDICAID [place] Care Teams Hose Turner Relationship Specialty Start Date End Date Chester Vasquez MD [address] [id number] PCP - General Family Practice 02/12/17
--- OUTSIDE RECORDS SUMMARY | 2025-04-21 21:31 | XMS_ITS | Clinical Summary ---
Author Organization [facility] Address [address] [place] [address] Care Team Providers Care Line Out Worker Name Role Phone Chester Vasquez MD Primary Care Provider [phone] [phone] Allergies No known active allergies Medications OTHER B/L AFO custom molded, solid ankle. 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
--- OUTSIDE RECORDS SUMMARY | 2025-04-21 21:31 | XMS_ITS | Encounter Summary ---
Author Organization [facility] Address [address] [place] [address] Care Team Providers Care Rfid Engineer Name Role Phone Chester Vasquez MD Primary Care Provider [phone] [phone] Encounter Details Date Type Department Care Team (Latest Contact Info) Description 07/27/2001 Outpatient Historical [facility] Ophthalmology 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
--- OUTSIDE RECORDS SUMMARY | 2025-04-21 21:31 | XMS_ITS | Encounter Summary ---
Author Organization [facility] Address [address] [place] [address] Care Team Providers Care Elevator Mechanic Apprentice Name Role Phone Chester Vasquez MD Primary Care Provider [phone] Encounter Details Date Type Department Care Team (Latest Contact Info) Description 07/29/2003 Outpatient Historical [facility] Ophthalmology 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
--- OUTSIDE RECORDS SUMMARY | 2025-04-21 21:31 | XMS_ITS | Encounter Summary ---
Author Organization [facility] Address [address] [place] [address] Care Team Providers Care Steeping Press Tender Name Role Phone Chester Vasquez MD Primary Care Provider [phone] [phone] Encounter Details Date Type Department Care Team (Latest Contact Info) Description 07/29/2001 Outpatient Historical [facility]-[place] [address] [place] [phone] Vahid Newsome MD NO ADDRESS ON FILE Dental caries (Primary Dx); Other specified pre-operative examination; Lack of normal physiological development, unspecified Social History Tobacco Use Types Packs/Day Years Used Date Smoking Tobacco: Never Assessed Sex and Gender Information Value Date Recorded Sex Assigned at Not on file 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
--- NOTE | 2025-04-21 22:15 | W.ED.PSYCHS ---
HPI - Psych General: Chief Complaint: Psychiatric Symptoms Stated Complaint: MHE Time Seen by Provider: 04/21/25 21:18 History of Present Illness: Discussed with patient's residence, [place] [facility] assisted living, that agrees with this. Patient's girlfriend broke up with her today that is also a resident at [facility]. Patient was upset, continue to go to her room and arouse her, and cuss out staff when they asked her to leave. Staff called the police that sent patient here for psychiatric evaluation. Patient denies SI, HI. He states he would like to be admitted on a voluntary basis for medication adjustment however. He denies any psychosis and knows all of the events and agrees with all of the above. Associated symptoms: Reports depression; Deny homicidal ideation or suicidal ideation Related Data Home Medications ?Medication ?Instructions ?Recorded ?Confirmed divalproex 250 mg tablet,delayed 750 mg PO QPM 04/18/25 04/18/25 release propranolol 10 mg tablet 5 mg PO DAILY 04/18/25 04/18/25 Previous Rx's ?Medication ?Instructions ?Recorded risperidone 2 mg tablet 2 mg PO BEDTIME 30 days #90 tabs 11/30/24 hydroxyzine HCl 50 mg tablet 50 mg PO BID PRN anxiety #60 tabs 02/09/25 Allergies Allergy/AdvReac Type Severity Reaction Status Date / Time bupropion AdvReac Intermediate Unknown Verified 03/09/25 09:56 Review of Systems Const: Denies: fever(s) or chills Eyes: Denies: change in vision or blurry vision ENMT: Denies: throat pain or uvular edema Card: Denies: chest pain or palpitations Resp: Denies: dyspnea or non-productive cough GI: Denies: abdominal pain, nausea or vomiting : Denies: flank pain or difficulty urinating Musc: Denies: neck pain or back pain Neuro: Denies: headache(s) or numbness in extremities Psych: Reports: anxiety and depression; Denies: suicidal ideation or homicidal ideation Endo: Denies: polyuria or polydipsia PFSH ED PFSH: Medical History Generalized anxiety disorder Bipolar II disorder COVID-19 Bereavement loss of mother on 01/08/24 Nausea and vomiting Psychiatric care Cerebral palsy Surgical History Hx of removal of testicle Right Orchiectomy at age 3. History of dental surgery Family History Other CAD (coronary artery disease) Hypertension Social History (Updated 06/15/24 @ 15:27 by Janki Garcia RN) Smoking and tobacco/nicotine status: never used tobacco/nicotine Alcohol intake: never Substance/Drug Use: never Adopted: No Caregiver/support person: Yes Lives independently: No Household members: other Details: [place] Housing: Assisted Living Facility Marital status: Single Number of children: 0 Highest education level completed: High School Graduate service: No Current occupational status: disabled Pets and animals: Yes Pets & animals: cat(s) Leisure activites: music and other Leisure activities details: watch TV Sexually active: No Do you think of yourself as: Straight/Heterosexual Current gender identity: Male Madie/Catholic: Nondenominational Special madie needs: No Agree to transfusion: Yes Physical Exam Const: COMMON NORMALS: no acute distress and patient oriented x3 HENMT: THROAT: no uvular edema Eye: COMMON NORMALS: Equal, round and reactive pupils present and EOMs intact bilaterally PUPIL: Yes Equal, round and reactive pupils present Neck/C-Spine: COMMON NORMALS: full ROM and no lymphadenopathy Resp: COMMON NORMALS: normal respiratory effort and No retractions GI: COMMON NORMALS: Normal to inspection, nondistended, normoactive bowel sounds present, Soft to palpation and non-tender PALPATION: Yes Soft to palpation : COMMON NORMALS: Yes no CVA tenderness BLADDER/KIDNEY EXAM: Yes no CVA tenderness Back/Pelvis: COMMON NORMALS: no CVA tenderness Extremity: COMMON NORMALS: normal to inspection, full ROM and capillary refill normal Neuro: COMMON NORMALS: patient oriented x3 Psych: COMMON NORMALS: cooperative, speech normal and denies suicidal ideation ATTITUDE: Yes Withdrawn affect present ACTIVITY/MOTOR BEHAVIOR: No appropriate eye contact and Yes Avoids eye contact (attititude/behavior) SPEECH: Yes normal speech MOOD & AFFECT: Yes depressed mood INSIGHT: Poor insight present (Psych) JUDGEMENT: Poor judgement present (Psych) Skin: COMMON NORMALS: no rashes or lesions noted and no wounds GENERAL SKIN EXAM: no rashes or lesions noted Course Consultations: Consultation #1: Discussed with Dr. Arreola. Patient was just discharged from here. He would like to obtain discharges in a.m., bring Luis to the npu, and further discuss these issues with medication adjustment. Vital Signs: Vital signs: Vital Signs Temperature 98.5 F 04/21/25 21:16 Pulse Rate 76 04/22/25 01:03 Respiratory Rate 14 04/22/25 01:03 Blood Pressure 111/78 04/22/25 01:03 Pulse Oximetry 97 04/22/25 01:03 Oxygen Delivery Me thod Room Air 04/22/25 01:03 MDM - Psych Medical Decision Making Patient is a 24-year-old male who resides at assisted living resident, that his girlfriend broke up with him, he was upset, and would not leave her alone. Staff had to intervene, and patient started cussing at staff. Apparently police were called. Patient just left the psychiatric unit here after he had an altercation verbally with his girlfriend had a fleeting sentence of I am just going to kill myself. I discussed the case with patient's primary psychiatrist here that would like to see him in the morning. Luis would like to go and have medication adjustment and is amicable to this. Lab Data 04/21/25 22:45 04/21/25 22:45 Laboratory Results WBC 10.52 10^3/uL (3.29-11.43) 04/21/25 22:45 RBC 4.97 10^6/uL (3.85-5.65) 04/21/25 22:45 Hgb 16.30 g/dL (11.27-16.99) 04/21/25 22:45 Hct 47.0 % (37-53) 04/21/25 22:45 MCV 94.6 fl (82-101) 04/21/25 22:45 MCH 32.8 pg (27-33) 04/21/25 22:45 MCHC 34.7 g/dL (30-55) 04/21/25 22:45 RDW 12.0 % (12.1-15.1) L 04/21/25 22:45 Plt Count 277 10^3/cmm (157-399) 04/21/25 22:45 MPV 10.3 fL (7.4-10.4) 04/21/25 22:45 Neut % (Auto) 69.8 % 04/21/25 22:45 Lymph % (Auto) 22.7 % 04/21/25 22:45 [place] % (Auto) 6.4 % 04/21/25 22:45 Eos % (Auto) 0.4 % 04/21/25 22:45 Baso % (Auto) 0.5 % 04/21/25 22:45 Neut # (Auto) 7.35 10^3/uL (1.8-7.7) 04/21/25 22:45 Lymph # (Auto) 2.4 10^3/uL (0.8-4.8) 04/21/25 22:45 [place] # (Auto) 0.7 10^3/uL (0.2-0.9) 04/21/25 22:45 Eos # (Auto) 0.0 10^3/uL (0.0-0.8) 04/21/25 22:45 Baso # (Auto) 0.1 10^3/uL (0.0-0.1) 04/21/25 22:45 Nucleated RBC % (auto) 0 % 04/21/25 22:45 Nucleated RBCs # 0.0 /100WBC 04/21/25 22:45 Sodium 141 mmol/L (136-145) 04/21/25 22:45 Potassium 3.9 mmol/L (3.5-5.1) 04/21/25 22:45 Chloride 101 mmol/L (98-107) 04/21/25 22:45 Carbon Dioxide 27 mmol/L (22-29) 04/21/25 22:45 Anion Gap 16.9 (5-19) 04/21/25 22:45 BUN 14 mg/dL (6-20) 04/21/25 22:45 Creatinine 0.9 mg/dL (0.7-1.2) 04/21/25 22:45 GFR Calculation 102.0 mL/min (90-130) 04/21/25 22:45 Glucose 133 mg/dL (65-115) H 04/21/25 22:45 Calculated Osmolality 294 mOsm/kg (285-295) 04/21/25 22:45 Calcium 9.7 mg/dL (8.5-10.5) 04/21/25 22:45 Total Bilirubin 0.5 mg/dL (0.15-1.2) 04/21/25 22:45 AST 15 U/L (0-40) 04/21/25 22:45 ALT 13 U/L (0-41) 04/21/25 22:45 Alkaline Phosphatase 75 U/L (40-130) 04/21/25 22:45 Total Protein 8.0 g/dL (6.6-8.7) 04/21/25 22:45 Albumin 4.6 g/dL (3.5-5.2) 04/21/25 22:45 Globulin 3.4 g/dL (1.3-4.6) 04/21/25 22:45 Urine Color Dark yellow (Yellow) A 04/22/25 01:00 Urine Appearance Clear (CLEAR) 04/22/25 01:00 Urine pH 6.0 (5-7) 04/22/25 01:00 Ur Specific [place] 1.039 (1.005-1.030) H 04/22/25 01:00 Urine Protein Trace (Negative) A 04/22/25 01:00 Urine Glucose (UA) Negative (Normal) 04/22/25 01:00 Urine Ketones 1+ (Negative) H 04/22/25 01:00 Urine Blood Negative (Negative) 04/22/25 01:00 Urine Nitrate Negative (Negative) 04/22/25 01:00 Urine Bilirubin 1+ (Negative) H 04/22/25 01:00 Urine Urobilinogen 1.0 mg/dL (Negative) 04/22/25 01:00 Ur Leukocyte Esterase Negative (Negative) 04/22/25 01:00 Urine RBC 0-2 /hpf (0-2) 04/22/25 01:00 Urine WBC 0-5 /hpf (0-5) 04/22/25 01:00 Ur Squamous Epith Cells 0-5 /hpf (0-5) 04/22/25 01:00 Amorphous Sediment Not Reportable 04/22/25 01:00 Urine Bacteria None seen /hpf (NONE) 04/22/25 01:00 Hyaline Casts 4.11 /lpf 04/22/25 01:00 Salicylates < 0.3 mg/dL (3-10) L 04/21/25 22:45 Urine Opiates Screen Negative ng/mL (Negative) 04/22/25 01:00 Acetaminophen < 5.0 ug/mL (10-30) L 04/21/25 22:45 Ur Barbiturates Screen Negative ng/mL (Negative) 04/22/25 01:00 Ur Phencyclidine Scrn Negative ng/mL (Negative) 04/22/25 01:00 Ur Amphetamines Screen Negative ng/mL (Negative) 04/22/25 01:00 U Benzodiazepines Scrn Negative ng/mL (Negative) 04/22/25 01:00 Urine Cocaine Screen Negative ng/mL (Negative) 04/22/25 01:00 U Marijuana (THC) Screen Negative ng/mL (Negative) 04/22/25 01:00 No radiology studies performed this visit Discharge Plan Discharge Patient Disposition: Xfer Psychiatric Hosp Clinical Impression: Severe depression, Adjustment reaction to medical therapy Condition: Stable Discharge Diet: Usual diet Discharge Activity: Resume usual activity Print Language: Panamanian Coding Level of Care Code ED Health Sciences Dean for Fuentes Davis
--- NOTE | 2025-04-21 22:26 | ECG_ITS ---
its learning Test Date: 2025-04-21 Pat Name: Luis Tapia Department: Room: Gender: Male President + Publisher: : 2000 Requested By: Angelina Iraheta Order Number: [id number] Сергей MD: Iker White M.D. Measurements Intervals [place] Rate: 81 P: 96 NM: 119 QRS: 118 QRSD: 79 T: 138 QT: 352 QTc: 411 Interpretive Statements SINUS RHYTHM WITH SHORT NM INTERVAL LEFT POSTERIOR FASCICULAR BLOCK [QRS AXIS > 109, INFERIOR Q] LATERAL MYOCARDIAL INFARCTION , OF INDETERMINATE AGE [40+ ms Q WAVE AND/OR ST/T ABNORMALITY IN I/aVL/V5/V6] No previous ECG available for comparison Electronically Signed On 04-28-2025 09:42:57 CDT by Iker White M.D. [email or web address] [id number]
[2025-04-21 23:08] LABS: Hematocrit 47.0 % (37-53); Hemoglobin 16.30 g/dL (11.27-16.99); Mean Corpuscular HGB Conc 34.7 g/dL (30-55); Mean Corpuscular Hemoglobin 32.8 pg (27-33); Mean Corpuscular Volume 94.6 fl (82-101); Nucleated Red Blood Cells % 0 %; Platelet Count 277 10^3/cmm (157-399); Red Blood Count 4.97 10^6/uL (3.85-5.65); White Blood Count 10.52 10^3/uL (3.29-11.43)
[2025-04-21 23:22] LABS: Alanine Aminotransferase 13 U/L (0-41); Albumin Level 4.6 g/dL (3.5-5.2); Alkaline Phosphatase 75 U/L (40-130); Anion Gap 16.9 (5-19); Aspartate Amino Transferase 15 U/L (0-40); Blood Urea Nitrogen 14 mg/dL (6-20); Calcium 9.7 mg/dL (8.5-10.5); Carbon Dioxide 27 mmol/L (22-29); Chloride 101 mmol/L (98-107); Creatinine Clr Calc Pharmacy 95.7582; Globulin 3.4 g/dL (1.3-4.6); Glucose 133 mg/dL (65-115); Osmolality Calculated 294 mOsm/kg (285-295); Potassium 3.9 mmol/L (3.5-5.1); Sodium 141 mmol/L (136-145); Total Protein 8.0 g/dL (6.6-8.7)
[2025-04-21 23:23] LABS: Acetaminophen < 5.0 ug/mL (10-30); Salicylate < 0.3 mg/dL (3-10)
[2025-04-22 01:03] VITALS: BP 111/78; PULSE 76; RESP 14; O2SAT 97
[2025-04-22 01:10] LABS: Glucose Urine UA Negative (Normal); Nitrate Urine Negative (Negative)
[2025-04-22 01:15] LABS: Add Urine Microscopic? YES
[2025-04-22 01:18] LABS: PCP Screen Urine Negative (Negative)
[2025-04-22 01:28] LABS: Specific Gravity, Urine 1.039 (1.005-1.030)
--- NOTE | 2025-04-22 07:57 | PC.PHAR ---
Pt is from [facility]
--- NOTE | 2025-04-22 10:22 | W.ED.PSYCHS ---
HPI - Psych General: Chief Complaint: Psychiatric Symptoms Stated Complaint: MHE Time Seen by Provider: 04/21/25 21:18 History of Present Illness: Patient was evaluated by Dr. Arreola today. Dr. Arreola feels like he would warrant admission. He had been having some issues with a girlfriend at the home he is living in now. He is being admitted for medication adjustment Related Data Home Medications ?Medication ?Instructions ?Recorded ?Confirmed divalproex 250 mg tablet,delayed 750 mg PO QPM 04/18/25 04/22/25 release propranolol 10 mg tablet 5 mg PO QAM 04/18/25 04/22/25 acetaminophen 325 mg tablet 650 mg PO Q4H PRN Pain 04/22/25 04/22/25 Previous Rx's ?Medication ?Instructions ?Recorded risperidone 2 mg tablet 2 mg PO BEDTIME 30 days #90 tabs 11/30/24 hydroxyzine HCl 50 mg tablet 50 mg PO BID PRN anxiety #60 tabs 02/09/25 Allergies Allergy/AdvReac Type Severity Reaction Status Date / Time bupropion AdvReac Intermediate Unknown Verified 03/09/25 09:56 Review of Systems Narrative: Constitutional symptoms: Negative except as documented in HPI. Skin symptoms: Negative except as documented in HPI. Eye symptoms: Negative except as documented in HPI. ENMT symptoms: Negative except as documented in HPI. Respiratory symptoms: Negative except as documented in HPI. Cardiovascular symptoms: Negative except as documented in HPI. Gastrointestinal symptoms: Negative except as documented in HPI. Genitourinary symptoms: Negative except as documented in HPI. Musculoskeletal symptoms: Negative except as documented in HPI. Neurologic symptoms: Negative except as documented in HPI. Psychiatric symptoms: Negative except as documented in HPI. Endocrine symptoms: Negative except as documented in HPI. PFSH ED PFSH: Medical History Generalized anxiety disorder Bipolar II disorder COVID-19 Bereavement loss of mother on 01/08/24 Nausea and vomiting Psychiatric care Cerebral palsy Surgical History Hx of removal of testicle Right Orchiectomy at age 3. History of dental surgery Family History Other CAD (coronary artery disease) Hypertension Social History (Updated 06/15/24 @ 15:27 by Janki Garcia RN) Smoking and tobacco/nicotine status: never used tobacco/nicotine Alcohol intake: never Substance/Drug Use: never Adopted: No Caregiver/support person: Yes Lives independently: No Household members: other Details: [place] Housing: Assisted Living Facility Marital status: Single Number of children: 0 Highest education level completed: High School Graduate service: No Current occupational status: disabled Pets and animals: Yes Pets & animals: cat(s) Leisure activites: music and other Leisure activities details: watch TV Sexually active: No Do you think of yourself as: Straight/Heterosexual Current gender identity: Male Madie/Catholic: Zoroastrianism Special madie needs: No Agree to transfusion: Yes Physical Exam Narrative: EXAM NARRATIVE: General: Alert, no acute distress. Skin: warm and dry Head: Normocephalic Neck: Trachea midline Eye: Extraocular movements are intact. Ears, nose, mouth and throat: Oral mucosa moist Respiratory: Respirations are non-labored Musculoskeletal: Normal ROM Gastrointestinal: Abdomen does not appear distended Neurological: Alert and oriented, No focal neurological deficit observed. Psychiatric: Cooperative, appropriate mood & affect. Course Vital Signs: Vital signs: Vital Signs Temperature 98.5 F 04/21/25 21:16 Pulse Rate 76 04/22/25 01:03 Respiratory Rate 14 04/22/25 01:03 Blood Pressure 111/78 04/22/25 01:03 Pulse Oximetry 97 04/22/25 01:03 Oxygen Delivery Me thod Room Air 04/22/25 01:03 MDM - Psych Medical Decision Making Consultation: Dr. Arreola was consulted and saw the patient in the emergency room and is admitting. Assessment and plan: Depression -Admission to neuropsychiatric unit for continued evaluation and treatment. - All lab work was reviewed and interpreted personally by myself, the ER physician - Evaluation and treatment of this problem were appropriate in the emergency setting Lab Data 04/21/25 22:45 04/21/25 22:45 Laboratory Results WBC 10.52 10^3/uL (3.29-11.43) 04/21/25 22:45 RBC 4.97 10^6/uL (3.85-5.65) 04/21/25 22:45 Hgb 16.30 g/dL (11.27-16.99) 04/21/25 22:45 Hct 47.0 % (37-53) 04/21/25 22:45 MCV 94.6 fl (82-101) 04/21/25 22:45 MCH 32.8 pg (27-33) 04/21/25 22:45 MCHC 34.7 g/dL (30-55) 04/21/25 22:45 RDW 12.0 % (12.1-15.1) L 04/21/25 22:45 Plt Count 277 10^3/cmm (157-399) 04/21/25 22:45 MPV 10.3 fL (7.4-10.4) 04/21/25 22:45 Neut % (Auto) 69.8 % 04/21/25 22:45 Lymph % (Auto) 22.7 % 04/21/25 22:45 [place] % (Auto) 6.4 % 04/21/25 22:45 Eos % (Auto) 0.4 % 04/21/25 22:45 Baso % (Auto) 0.5 % 04/21/25 22:45 Neut # (Auto) 7.35 10^3/uL (1.8-7.7) 04/21/25 22:45 Lymph # (Auto) 2.4 10^3/uL (0.8-4.8) 04/21/25 22:45 [place] # (Auto) 0.7 10^3/uL (0.2-0.9) 04/21/25 22:45 Eos # (Auto) 0.0 10^3/uL (0.0-0.8) 04/21/25 22:45 Baso # (Auto) 0.1 10^3/uL (0.0-0.1) 04/21/25 22:45 Nucleated RBC % (auto) 0 % 04/21/25 22:45 Nucleated RBCs # 0.0 /100WBC 04/21/25 22:45 Sodium 141 mmol/L (136-145) 04/21/25 22:45 Potassium 3.9 mmol/L (3.5-5.1) 04/21/25 22:45 Chloride 101 mmol/L (98-107) 04/21/25 22:45 Carbon Dioxide 27 mmol/L (22-29) 04/21/25 22:45 Anion Gap 16.9 (5-19) 04/21/25 22:45 BUN 14 mg/dL (6-20) 04/21/25 22:45 Creatinine 0.9 mg/dL (0.7-1.2) 04/21/25 22:45 GFR Calculation 102.0 mL/min (90-130) 04/21/25 22:45 Glucose 133 mg/dL (65-115) H 04/21/25 22:45 Calculated Osmolality 294 mOsm/kg (285-295) 04/21/25 22:45 Calcium 9.7 mg/dL (8.5-10.5) 04/21/25 22:45 Total Bilirubin 0.5 mg/dL (0.15-1.2) 04/21/25 22:45 AST 15 U/L (0-40) 04/21/25 22:45 ALT 13 U/L (0-41) 04/21/25 22:45 Alkaline Phosphatase 75 U/L (40-130) 04/21/25 22:45 Total Protein 8.0 g/dL (6.6-8.7) 04/21/25 22:45 Albumin 4.6 g/dL (3.5-5.2) 04/21/25 22:45 Globulin 3.4 g/dL (1.3-4.6) 04/21/25 22:45 Urine Color Dark yellow (Yellow) A 04/22/25 01:00 Urine Appearance Clear (CLEAR) 04/22/25 01:00 Urine pH 6.0 (5-7) 04/22/25 01:00 Ur Specific [place] 1.039 (1.005-1.030) H 04/22/25 01:00 Urine Protein Trace (Negative) A 04/22/25 01:00 Urine Glucose (UA) Negative (Normal) 04/22/25 01:00 Urine Ketones 1+ (Negative) H 04/22/25 01:00 Urine Blood Negative (Negative) 04/22/25 01:00 Urine Nitrate Negative (Negative) 04/22/25 01:00 Urine Bilirubin 1+ (Negative) H 04/22/25 01:00 Urine Urobilinogen 1.0 mg/dL (Negative) 04/22/25 01:00 Ur Leukocyte Esterase Negative (Negative) 04/22/25 01:00 Urine RBC 0-2 /hpf (0-2) 04/22/25 01:00 Urine WBC 0-5 /hpf (0-5) 04/22/25 01:00 Ur Squamous Epith Cells 0-5 /hpf (0-5) 04/22/25 01:00 Amorphous Sediment Not Reportable 04/22/25 01:00 Urine Bacteria None seen /hpf (NONE) 04/22/25 01:00 Hyaline Casts 4.11 /lpf 04/22/25 01:00 Salicylates < 0.3 mg/dL (3-10) L 04/21/25 22:45 Urine Opiates Screen Negative ng/mL (Negative) 04/22/25 01:00 Acetaminophen < 5.0 ug/mL (10-30) L 04/21/25 22:45 Ur Barbiturates Screen Negative ng/mL (Negative) 04/22/25 01:00 Ur Phencyclidine Scrn Negative ng/mL (Negative) 04/22/25 01:00 Ur Amphetamines Screen Negative ng/mL (Negative) 04/22/25 01:00 U Benzodiazepines Scrn Negative ng/mL (Negative) 04/22/25 01:00 Urine Cocaine Screen Negative ng/mL (Negative) 04/22/25 01:00 U Marijuana (THC) Screen Negative ng/mL (Negative) 04/22/25 01:00 No radiology studies performed this visit Discharge Plan Discharge Patient Disposition: Admitted As Inpatient Clinical Impression: Severe depression, Adjustment reaction to medical therapy Condition: Stable Discharge Diet: Usual diet Discharge Activity: Resume usual activity Coding Level of Care Code ED Curriculum Assistant for Fuentes Davis
[2025-04-22 12:35] VITALS: BP 122/70; PULSE 87; O2SAT 95
[2025-04-22 13:50] VITALS: BP 130/89; PULSE 81; RESP 16; TEMP 36.8; O2SAT 99
[2025-04-22 13:58] VITALS: BP 130/89; PULSE 81; RESP 16; TEMP 36.8; O2SAT 99
--- NOTE | 2025-04-22 14:06 | PC.ADMIT ---
[email or web address] [facility] Admission Note: The patient,Luis Tapia,24 y/o, was given written information regarding hospital policies, unit procedures and contact persons. Patient's smoking status: never smoked. Vital Signs - 8 hr 04/22/25 12:35 04/22/25 13:50 04/22/25 13:53 Temperature 98.3 F Pulse Rate 87 81 Respiratory Rate 16 Blood Pressure 122/70 130/89 Pulse Oximetry 95 99 Oxygen Delivery Method Room Air Room Air 04/22/25 13:58 Temperature 98.3 F Pulse Rate 81 Respiratory Rate 16 Blood Pressure 130/89 Pulse Oximetry 99 Oxygen Delivery Method Room Air Pt.'s GF broke up with him on Friday. Pt. was brought to [facility] d/t pt. was stalking and harrassing his x GF. Pt. was DC'd from [facility] on Friday returned to the [facility] and continued stalking and harrassing his X GF and was kicked out of the [facility].
[2025-04-22 17:00] LABS: Free T4 Free Thyroxine 1.79 ng/dL (0.82-1.77); Thyroid Stimulating Hormone 1.91 uIU/mL (0.27-4.20)
[2025-04-22 20:45] VITALS: BP 112/78; PULSE 88; RESP 16; O2SAT 97
[2025-04-23 06:00] VITALS: BP 92/62; PULSE 87; RESP 16; O2SAT 96
--- NOTE | 2025-04-23 07:12 | W.PM.NPUH&PS ---
Providers/Chief Complaint Admitting Physician: Raoul Arreola MD Chief Complaint: MHE HPI NPU History of Present Illness Luis Tapia is a 24 year old male Meds NPU Home Medications ?Medication ?Instructions ?Recorded ?Confirmed ?Last Taken ?Type risperidone 2 mg tablet 2 mg PO BEDTIME 30 days #90 tabs 11/30/24 04/22/25 04/21/25 Rx hydroxyzine HCl 50 mg tablet 50 mg PO BID PRN anxiety #60 tabs 02/09/25 04/22/25 04/21/25 Rx divalproex 250 mg tablet,delayed 750 mg PO QPM 04/18/25 04/22/25 04/21/25 History release propranolol 10 mg tablet 5 mg PO QAM 04/18/25 04/22/25 04/21/25 History acetaminophen 325 mg tablet 650 mg PO Q4H PRN Pain 04/22/25 04/22/25 Unknown History Allergies Allergy/AdvReac Type Severity Reaction Status Date / Time bupropion AdvReac Intermediate Unknown Verified 03/09/25 09:56 PFSH NPU PFSH: Medical History Generalized anxiety disorder Bipolar II disorder COVID-19 Bereavement loss of mother on 01/08/24 Nausea and vomiting Psychiatric care Cerebral palsy Surgical History Hx of removal of testicle Right Orchiectomy at age 3. History of dental surgery Family History Other CAD (coronary artery disease) Hypertension Social History (Updated 06/15/24 @ 15:27 by Janki Garcia RN) Smoking and tobacco/nicotine status: never used tobacco/nicotine Alcohol intake: never Substance/Drug Use: never Adopted: No Caregiver/support person: Yes Lives independently: No Household members: other Details: [place] Housing: Assisted Living Facility Marital status: Single Number of children: 0 Highest education level completed: High School Graduate service: No Current occupational status: disabled Pets and animals: Yes Pets & animals: cat(s) Leisure activites: music and other Leisure activities details: watch TV Sexually active: No Do you think of yourself as: Straight/Heterosexual Current gender identity: Male Madie/Hoahaoism: Islam Special madie needs: No Agree to transfusion: Yes Vitals/I&O/Wt Last Vital Signs Temp 98.3 F 04/22/25 13:58 Pulse 87 04/23/25 06:00 Resp 16 04/23/25 06:00 BP 92/62 04/23/25 06:00 Pulse Ox 96 04/23/25 06:00 O2 Del Method Room Air 04/22/25 13:58 Weight last 48 hrs Weight 54.431 kg Data NPU 04/21/25 22:45 04/21/25 22:45 A&P PDMP PDMP Reviewed: Not Reviewed Involuntary Hold Information Hold Status: Date/Time Hold Expires: voluntary 96 Hour Hold: 96 Hour Involuntary Admission: Yes Attestations NPU Medical Necessity Statement*: Inpatient hospitalization is medically necessary and the clinically appropriate intervention at this time.? We will monitor/initiate medications and make changes as indicated.? The patient will be in the hospital for over 2 midnights.? The patient?s likely length of stay 3-5 days. Coding Level of Care Code Acute Code for Chg Ryan
[2025-04-23 13:39] VITALS: BP 89/58; PULSE 86; RESP 15; O2SAT 98
[2025-04-23 22:00] VITALS: BP 142/91; PULSE 94; RESP 18; TEMP 36.7; O2SAT 99
[2025-04-24 06:00] VITALS: BP 106/68; PULSE 81; RESP 16; O2SAT 98
[2025-04-24] MEDS: divalproex ER 500 mg Tablet (24H) PO (12:53)
[2025-04-24] MEDS: divalproex ER 250 mg Tablet (24H) PO (12:53)
[2025-04-24 14:00] VITALS: BP 119/79; PULSE 116; RESP 16; TEMP 36.6; O2SAT 99
--- NOTE | 2025-04-24 15:06 | W.PM.NPUPNS ---
Subjective NPU Subjective: 24-year-old male admitted with increased aggression and threats towards another member of his nursing home. He reported that he was feeling better and acknowledged that he could no longer return back to [place] when discharged. He reported no thoughts of hurting himself or others. He had reported that he wished to consider going to [facility] to reside when he left here. He denied any side effects from his medication regimen. Mental Status Exam MSE Comments: This is an underweight white male in hospital scrubs with adequate grooming and limited eye contact. No abnormal movements except for a somewhat characteristic stride consistent with CP with limited contracture notable in hands. Mild psychomotor retardation noted. He was cooperative with exam in mild distress. Speech was slightly decreased in rate and volume with some characteristic fullness of tongue/dysarthria. Mood described as good. His affect was subdued. Thought process was linear and organized. Thought content: Patient denies suicidal or homicidal ideation, there were no delusions reported or noted, he denied any auditory or visual hallucinations. Attention and concentration appeared intact and memory appeared mostly reliable but none were formally tested. He is alert and oriented x 3. Insight was poor and judgment is poor. His impulse control is impaired. Vitals/I&O/Wt Last Vital Signs Temp 98 F 04/24/25 14:00 Pulse 116 H 04/24/25 14:00 Resp 16 04/24/25 14:00 BP 119/79 04/24/25 14:00 Pulse Ox 99 04/24/25 14:00 O2 Del Method Room Air 04/24/25 14:00 Weight last 48 hrs Weight 54.068 kg Data NPU 04/21/25 22:45 04/21/25 22:45 A&P Assessment and plan (1) Bipolar II disorder: (2) Generalized anxiety disorder: (3) Nausea and vomiting: (4) COVID-19: (5) Cerebral palsy: (6) Bereavement: (7) Depression: (8) Partner relational problem: (9) Suicidal ideation: Plan 24-year-old male with CP readmitted after threatening ex girlfriend at [place] with history of poor impulse control and mild cognitive impairment. 1. ?Continue current medications, except switch to Depakote ER 750mg once a day to target aggression and impulsivity. D/C Depakote DR 750mg at night. 2.??Engage patient in milieu, individual and group therapy. 3.??Continue every 15 minute checks for safety. 4. Obtain collateral information. 5. Tentative plan for discharge tomorrow. PDMP PDMP Reviewed: Not Reviewed Involuntary Hold Information Hold Status: Date/Time Hold Expires: voluntary 96 Hour Hold: 96 Hour Involuntary Admission: Yes Attestations NPU Medical Necessity Statement*: Inpatient hospitalization is medically necessary and the clinically appropriate intervention at this time.? We will monitor/initiate medications and make changes as indicated.? The patient?s likely length of stay 3-5 days. Coding Level of Care Code Acute Code for Chg Fwd Diagnoses Bipolar II disorder F31.81 Generalized anxiety disorder F41.1 Psychogenic vomiting with nausea F50.89 Vomiting type: psychogenic vomiting COVID-19 U07.1 Cerebral palsy, unspecified type G80.9 Cerebral palsy type: unspecified type Bereavement Z63.4 Depression F32.A Partner relational problem Z63.0 Suicidal ideation R45.851
[2025-04-24 20:00] VITALS: BP 100/62; PULSE 68; RESP 17; TEMP 36.8; O2SAT 98
[2025-04-25 06:00] VITALS: BP 103/72; PULSE 72; RESP 16; TEMP 36.6; O2SAT 96
[2025-04-25] MEDS: divalproex ER 500 mg Tablet (24H) PO (08:15)
[2025-04-25] MEDS: divalproex ER 250 mg Tablet (24H) PO (08:15)
--- NOTE | 2025-04-25 13:59 | W.PM.NPUPNS ---
Subjective NPU Subjective: 24-year-old male with cerebral palsy and poor impulse control admitted for aggression and threats towards his ex-girlfriend. He had continued to state that he was feeling okay here. He had no explosive outburst. He did report that he had problems with managing his anger. He had stated that he would be agreeable to his sister becoming his guardian. The patient did not endorse any side effects from his medication regimen. He had reported adequate sleep. He remained hopeful about going to live at [facility] when discharged. Mental Status Exam MSE Comments: This is an underweight white male in hospital scrubs with adequate grooming and limited eye contact. No abnormal movements except for a somewhat characteristic stride consistent with CP with limited contracture notable in hands. Mild psychomotor retardation noted. He was cooperative with exam in mild distress. Speech was slightly decreased in rate and volume with some characteristic fullness of tongue/dysarthria. Mood described as okay. His affect was subdued. Thought process was linear and organized. Thought content: Patient denies suicidal or homicidal ideation, there were no delusions reported or noted, he denied any auditory or visual hallucinations. Attention and concentration appeared intact and memory appeared mostly reliable but none were formally tested. He is alert and oriented x 3. Insight was poor and judgment is poor. His impulse control is limited. Vitals/I&O/Wt Last Vital Signs Temp 97.9 F 04/25/25 06:00 Pulse 72 04/25/25 06:00 Resp 16 04/25/25 06:00 BP 103/72 04/25/25 06:00 Pulse Ox 96 04/25/25 06:00 O2 Del Method Room Air 04/25/25 06:00 Weight last 48 hrs Weight 54.068 kg Data NPU 04/21/25 22:45 04/21/25 22:45 A&P Assessment and plan (1) Bipolar II disorder: (2) Generalized anxiety disorder: (3) Nausea and vomiting: (4) COVID-19: (5) Cerebral palsy: (6) Bereavement: (7) Depression: (8) Partner relational problem: (9) Suicidal ideation: Plan 24-year-old male with CP readmitted after threatening ex girlfriend at [place] with history of poor impulse control and mild cognitive impairment. 1. ?Continue current medications, except switch to Depakote ER 750mg once a day to target aggression and impulsivity. D/C Depakote DR 750mg at night. 2.??Engage patient in milieu, individual and group therapy. 3.??Continue every 15 minute checks for safety. 4. Obtain collateral information. 5. Ritvo Autism Diagnostic scale showed limited evidence of support for ASD diagnosis. Full scale score was 42 in the neurotypical range. 6. check depakote level, CBC with diff, AST/ALT. PDMP PDMP Reviewed: Not Reviewed Involuntary Hold Information Hold Status: Date/Time Hold Expires: voluntary 96 Hour Hold: 96 Hour Involuntary Admission: Yes Attestations NPU Medical Necessity Statement*: Inpatient hospitalization is medically necessary and the clinically appropriate intervention at this time.? We will monitor/initiate medications and make changes as indicated.? The patient?s likely length of stay 3-5 days. Coding Level of Care Code Acute Code for g Fwd Diagnoses Bipolar II disorder F31.81 Generalized anxiety disorder F41.1 Psychogenic vomiting with nausea F50.89 Vomiting type: psychogenic vomiting COVID-19 U07.1 Cerebral palsy, unspecified type G80.9 Cerebral palsy type: unspecified type Bereavement Z63.4 Depression F32.A Partner relational problem Z63.0 Suicidal ideation R45.851
[2025-04-25 14:00] VITALS: BP 109/71; PULSE 92; RESP 16; TEMP 36.7; O2SAT 97
[2025-04-25 19:22] VITALS: BP 112/69; PULSE 78; RESP 18; TEMP 36.4; O2SAT 98
[2025-04-26 06:00] VITALS: BP 100/55; PULSE 81; RESP 18; O2SAT 97
[2025-04-26 08:07] LABS: Hematocrit 46.5 % (37-53); Hemoglobin 15.90 g/dL (11.27-16.99); Mean Corpuscular HGB Conc 34.2 g/dL (30-55); Mean Corpuscular Hemoglobin 33.1 pg (27-33); Mean Corpuscular Volume 96.7 fl (82-101); Platelet Count 221 10^3/cmm (157-399); Red Blood Count 4.81 10^6/uL (3.85-5.65); White Blood Count 8.34 10^3/uL (3.29-11.43)
[2025-04-26 08:27] LABS: Alanine Aminotransferase 11 U/L (0-41); Albumin Level 4.3 g/dL (3.5-5.2); Alkaline Phosphatase 70 U/L (40-130); Globulin 3.1 g/dL (1.3-4.6); Total Protein 7.4 g/dL (6.6-8.7)
[2025-04-26] MEDS: divalproex ER 500 mg Tablet (24H) PO (08:42)
[2025-04-26] MEDS: divalproex ER 250 mg Tablet (24H) PO (08:42)
[2025-04-26 08:47] LABS: Aspartate Amino Transferase 14 U/L (0-40)
[2025-04-26 09:22] LABS: Absolute Segmented Neutrophil 5.4 10/cmm (1.6-7.1); Atypical Lymphs 0.0 % (0-5); Band Neutrophils Absolute 0.0 10^3/cmm (0.0-1.2); Giant Platelets Trace; Total Cells Counted 100 (0-100)
[2025-04-26 13:57] VITALS: BP 109/74; PULSE 73; RESP 16; TEMP 36.7; O2SAT 99
--- NOTE | 2025-04-26 14:51 | W.PM.NPUPNS ---
Subjective NPU Subjective: 24-year-old male with cerebral palsy and poor impulse control admitted for aggression and threats towards his ex-girlfriend. The patient continued to appear calm here on the milieu. He reported no side effects from his medication regimen. The patient's Depakote level was 63 this morning. The patient stated that he he recognizes the pattern and stated that he wanted it to change. He had acknowledged a history of being oppositional and reported having struggles with being told what to do. He had denied any clear episodes of ney. Patient had adequate sleep. He had remained hopeful about being able to go to [facility] or [place] if given an option. Mental Status Exam MSE Comments: This is an underweight white male in hospital scrubs with adequate grooming and limited eye contact. No abnormal movements except for a somewhat characteristic stride consistent with CP with limited contracture notable in hands. Mild psychomotor retardation noted. No other tremors appreciated. He was cooperative with exam in mild distress. Speech was slightly decreased in rate and volume with some characteristic fullness of tongue/dysarthria. Mood described as okay. His affect was subdued. Thought process was linear and organized. Thought content: Patient denies suicidal or homicidal ideation, there were no delusions reported or noted, he denied any auditory or visual hallucinations. Attention and concentration appeared intact and memory appeared mostly reliable but none were formally tested. He is alert and oriented x 3. Insight was poor and judgment is poor. His impulse control is limited. Vitals/I&O/Wt Last Vital Signs Temp 98.1 F 04/26/25 13:57 Pulse 73 04/26/25 13:57 Resp 16 04/26/25 13:57 BP 109/74 04/26/25 13:57 Pulse Ox 99 04/26/25 13:57 O2 Del Method Room Air 04/26/25 13:57 Data NPU 04/26/25 07:59 04/21/25 22:45 A&P Assessment and plan (1) Bipolar II disorder: (2) Generalized anxiety disorder: (3) Nausea and vomiting: (4) COVID-19: (5) Cerebral palsy: (6) Bereavement: (7) Depression: (8) Partner relational problem: (9) Suicidal ideation: Plan 24-year-old male with CP readmitted after threatening ex girlfriend at [place] with history of poor impulse control and mild cognitive impairment. 1. ?Continue current medications, Depakote ER was 63, on 750mg ER in am, will increase to 1000mg ER in am. 2.??Engage patient in milieu, individual and group therapy. 3.??Continue every 15 minute checks for safety. 4. Obtain collateral information. 5. Ritvo Autism Diagnostic scale showed limited evidence of support for ASD diagnosis. Full scale score was 42 in the neurotypical range. 6. check depakote level, CBC with diff, AST/ALT. PDMP PDMP Reviewed: Not Reviewed Involuntary Hold Information Hold Status: Date/Time Hold Expires: voluntary 96 Hour Hold: 96 Hour Involuntary Admission: Yes Attestations NPU Medical Necessity Statement*: Inpatient hospitalization is medically necessary and the clinically appropriate intervention at this time.? We will monitor/initiate medications and make changes as indicated.? The patient?s likely length of stay 3-5 days. Coding Level of Care Code Acute Code for [facility] Fwd Diagnoses Bipolar II disorder F31.81 Generalized anxiety disorder F41.1 Psychogenic vomiting with nausea F50.89 Vomiting type: psychogenic vomiting COVID-19 U07.1 Cerebral palsy, unspecified type G80.9 Cerebral palsy type: unspecified type Bereavement Z63.4 Depression F32.A Partner relational problem Z63.0 Suicidal ideation R45.851
[2025-04-26 19:18] VITALS: BP 120/71; PULSE 96; RESP 18; TEMP 36.4; O2SAT 96
[2025-04-27 06:00] VITALS: BP 90/60; PULSE 63; RESP 16; O2SAT 98
[2025-04-27] MEDS: divalproex ER 500 mg Tablet (24H) 1000 MG PO (08:59)
--- NOTE | 2025-04-27 12:46 | P.NPUDS_ITS ---
Diagnoses at Discharge Discharge Diagnosis (1) Bipolar II disorder: Status: Chronic (2) Generalized anxiety disorder: Status: Chronic (3) Nausea and vomiting: Status: Inactive Qualifiers: Vomiting type: psychogenic vomiting Qualified Code(s): F50.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 (4) COVID-19: Status: Inactive (5) Cerebral palsy: Status: Chronic Qualifiers: Cerebral palsy type: unspecified type Qualified Code(s): G80.9 - Cerebral palsy, unspecified (6) Bereavement: Status: Acute Permanent problem details: loss of mother on 01/08/24 (7) Depression: Status: Resolved (8) Partner relational problem: Status: Acute (9) Suicidal ideation: Status: Resolved Reason for Visit Reason for Visit: MHE Brief History: Luis is a 24-year-old male admitted to the neuropsychiatric unit from 04/18/2025 to 04/20/2025 after he had endorsed depressed mood and increased agitation after he had had continued anger that he was no longer allowed to talk to his ex-girlfriend. He returned to the emergency department 3 days after discharge endorsing that he had been kicked out of his home at [place] as the police had received a restraining order that prevented him from being near his ex-girlfriend.He endorsed suicidal ideation on admission. Excerpt from NPU admission note on 04/18/25. Patient is a 24-year-old gentleman that states he is present because he is more depressed. Denies any suicide ideations. He stated he had a verbal altercation with the staff of the home he is in, and his girlfriend is also present in the same home. He stated that staff was keeping him from his girlfriend, and they were to stay apart for 24 to 48 hours, and he obliged the staff with this, and then staff still would not allow him to see his girlfriend. He states that he got angry and did yell profanities. Denied anything other than a verbal altercation. He does admit that he may need his medications adjusted. I discussed the above with patient's assisted living, [place], that state that his girlfriend that is also a resident asked for space. Patient denied her space. Assisted-living staff stated patient could not go in the room when she is asked for space. Patient was angry and stated he wanted to hear it from her. Then patient apparently stated he did not want to live anymore, and patient admits this. He stated he immediately took it back. He then stated to staff that they could fuck themselves when he could not see his girlfriend. Staff asked if he wanted to go to the ER, and patient consented to ER visit. Associated symptoms: Reports depression; Deny delusions. He was admitted to the neuropsychiatric unit for definitive treatment of those issues. He is known to [facility] from inpatient and outpatient services. An excerpt of his last inpatient discharge summary from last summer is included below for context and the fact that there have been no substantive changes. He presented today reporting that things have been fine since he left here and moved onto [place]. But the nidus of this admission is that while there he had developed a relationship with a girl who also lives there. And in recent days or weeks that relationship soured and he did not demonstrate self- control and managing himself and trying to convince her to continue the relationship. He reports that he was really upset and saying stupid things about self-harm and thoughts to kill himself. He denies feeling that way now and reports that he realizes now that he has had some distance from the facility and a good night sleep that he has to except her position. When asked how he would deal with that if she maintained the position that the relationship was over and he said that he called the facility and the message was passed along to him that she would likely continue in this direction of wanting to break up but reports that they could still be friends. He reports that having her friendship will be sufficient and that he will be able to go back there and manage himself. We discussed the fact that he may benefit from this time away to get himself geared into what the new relationship might look like and to be prepared to give her space and not have expectations or demands. He reports his medication is working fine and we discussed the risks, benefits and alternatives of leaving his medication as it is for now and he understood and agreed to proceed as is documented in this note. Medications: risperidone 2mg at night, Depakote [id number] at night. Hospital Course Hospital Course The patient was restarted on his outpatient medications. He was initially prescribed Depakote 750 mg at night. The extended release of Depakote was given in place of his previous Depakote and moved to once a day in the morning. The patient's Depakote level was subtherapeutic and his Depakote was increased to 1000 mg extended release in the morning. He was able to tolerate this change without any significant problems. His impulse control appeared improved. He continued to take Risperdal to help manage his anger and irritability. During the hospitalization, the patient had routine laboratory studies which were within normal limits except for a few outliers.? Additionally, there was a general medical evaluation which was also within normal limits and revealed no new acute processes.? At the time of discharge, lethality was denied. ? Mood and anxiety were well managed.? The patient endorsed a plan to avoid all drugs of abuse and follow up with the aftercare recommendations of the treatment team.? The patient was evaluated and deemed to be absent credible lethality and had achieved the maximum benefit from an inpatient hospitalization, and so was discharged. ?He was agreeable to going to [facility] to reside and was informed that continued failure to manage his anger and anxiety leading to frequent hospitalizations would lead to the patient requiring guardianship and placement indefinitely in a locked facility. Involuntary Hold Information Hold Status: Date/Time Hold Expires: voluntary 96 Hour Hold: 96 Hour Involuntary Admission: Yes Mental Status Exam MSE Comments: This is an underweight white male in hospital scrubs with adequate grooming and limited eye contact. No abnormal movements except for a somewhat characteristic stride consistent with CP with limited contracture notable in hands. Mild psychomotor retardation noted. No other tremors appreciated. He was cooperative with exam in mild distress. Speech was slightly decreased in rate and volume with some characteristic fullness of tongue/dysarthria. Mood described as okay. His affect was anxious. Thought process was linear and organized. Thought content: Patient denies suicidal or homicidal ideation, there were no delusions reported or noted, he denied any auditory or visual hallucinations. Attention and concentration appeared intact and memory appeared mostly reliable but none were formally tested. He is alert and oriented x 3. Insight was poor and judgment is limited. His impulse control is limited. Discharge Data Studies Completed and Pending: Laboratory Results WBC 8.34 10^3/uL (3.2 9-11.43) 04/26/25 07:59 RBC 4.81 10^6/uL (3.8 5-5.65) 04/26/25 07:59 Hgb 15.90 g/dL (11.27 -16.99) 04/26/25 07:59 Hct 46.5 % (37-53) 04/26/25 07:59 MCV 96.7 fl (82-101) 04/26/25 07:59 MCH 33.1 pg (27-33) H 04/26/25 07:59 MCHC 34.2 g/dL (30-55) 04/26/25 07:59 RDW 12.0 % (12.1-15.1 ) L 04/26/25 07:59 Plt Count 221 10^3/cmm (157 -399) 04/26/25 07:59 MPV 10.5 fL (7.4-10.4 ) H 04/26/25 07:59 Neut % (Auto) 69.8 % 04/21/25 22:45 Lymph % (Auto) 22.7 % 04/21/25 22:45 Oxford % (Auto) 6.4 % 04/21/25 22:45 Eos % (Auto) 0.4 % 04/21/25 22:45 Baso % (Auto) 0.5 % 04/21/25 22:45 Neut # (Auto) 7.35 10^3/uL (1.8 -7.7) 04/21/25 22:45 Lymph # (Auto) 2.4 10^3/uL (0.8- 4.8) 04/21/25 22:45 Oxford # (Auto) 0.7 10^3/uL (0.2- 0.9) 04/21/25 22:45 Eos # (Auto) 0.0 10^3/uL (0.0- 0.8) 04/21/25 22:45 Baso # (Auto) 0.1 10^3/uL (0.0- 0.1) 04/21/25 22:45 Nucleated RBC % (a uto) 0 % 04/21/25 22:45 Total Counted 100 (0-100) 04/26/25 07:59 Atypical Lymphs % 0.0 % (0-5) 04/26/25 07:59 Absolute Neutrophi ls 5.4 10^3/cmm (1.4 -6.5) 04/26/25 07:59 Segmented Neutroph ils 65 % 04/26/25 07:59 Band Neutrophils 0.0 % 04/26/25 07:59 Absolute Lymphocyt es 2.4 10^3/cmm (1.2 -3.4) 04/26/25 07:59 Lymphocytes (Manua l) 29 % 04/26/25 07:59 Monocytes (Manual) 4.0 % 04/26/25 07:59 Absolute Monocytes 0.3 10^3/cmm (0.1 -0.6) 04/26/25 07:59 Eosinophils (Manua l) 2 % 04/26/25 07:59 Absolute Eosinophi ls 0.2 10^3/cmm (0.0 -0.7) 04/26/25 07:59 Basophils (Manual) 0.0 % 04/26/25 07:59 Absolute Basophils 0.0 10^3/cmm (0.0 -0.2) 04/26/25 07:59 Nucleated RBCs # 0.0 /100WBC 04/21/25 22:45 Platelet Estimate Normal (Normal) 04/26/25 07:59 Giant Platelets Trace 04/26/25 07:59 Sodium 141 mmol/L (136-1 45) 04/21/25 22:45 Potassium 3.9 mmol/L (3.5-5 .1) 04/21/25 22:45 Chloride 101 mmol/L (98-10 7) 04/21/25 22:45 Carbon Dioxide 27 mmol/L (22-29) 04/21/25 22:45 Anion Gap 16.9 (5-19) 04/21/25 22:45 BUN 14 mg/dL (6-20) 04/21/25 22:45 Creatinine 0.9 mg/dL (0.7-1. 2) 04/21/25 22:45 GFR Calculation 102.0 mL/min (90- 130) 04/21/25 22:45 Glucose 133 mg/dL (65-115 ) H 04/21/25 22:45 Calculated Osmolal ity 294 mOsm/kg (285- 295) 04/21/25 22:45 Calcium 9.7 mg/dL (8.5-10 .5) 04/21/25 22:45 Total Bilirubin 0.4 mg/dL (0.15-1 .2) 04/26/25 07:59 Direct Bilirubin 0.09 mg/dL (0.00- 0.30) 04/26/25 07:59 AST 14 U/L (0-40) 04/26/25 07:59 ALT 11 U/L (0-41) 04/26/25 07:59 Alkaline Phosphata se 70 U/L (40-130) 04/26/25 07:59 Total Protein 7.4 g/dL (6.6-8.7 ) 04/26/25 07:59 Albumin 4.3 g/dL (3.5-5.2 ) 04/26/25 07:59 Globulin 3.1 g/dL (1.3-4.6 ) 04/26/25 07:59 TSH 1.91 uIU/mL (0.27 -4.20) 04/21/25 22:45 Free T4 1.79 ng/dL (0.82- 1.77) H 04/21/25 22:45 Urine Color Dark yellow (Yel low) A 04/22/25 01:00 Urine Appearance Clear (CLEAR) 04/22/25 01:00 Urine pH 6.0 (5-7) 04/22/25 01:00 Ur Specific Gravit y 1.039 (1.005-1.0 30) H 04/22/25 01:00 Urine Protein Trace (Negative) A 04/22/25 01:00 Urine Glucose (UA) Negative (Normal ) 04/22/25 01:00 Urine Ketones 1+ (Negative) H 04/22/25 01:00 Urine Blood Negative (Negati ve) 04/22/25 01:00 Urine Nitrate Negative (Negati ve) 04/22/25 01:00 Urine Bilirubin 1+ (Negative) H 04/22/25 01:00 Urine Urobilinogen 1.0 mg/dL (Negati ve) 04/22/25 01:00 Ur Leukocyte Rasheeda ase Negative (Negati ve) 04/22/25 01:00 Urine RBC 0-2 /hpf (0-2) 04/22/25 01:00 Urine WBC 0-5 /hpf (0-5) 04/22/25 01:00 Ur Squamous Epith Cells 0-5 /hpf (0-5) 04/22/25 01:00 Amorphous Sediment Not Reportable 04/22/25 01:00 Urine Bacteria None seen /hpf (N ONE) 04/22/25 01:00 Hyaline Casts 4.11 /lpf 04/22/25 01:00 Salicylates < 0.3 mg/dL (3-10 ) L 04/21/25 22:45 Urine Opiates Scre en Negative ng/mL (N egative) 04/22/25 01:00 Acetaminophen < 5.0 ug/mL (10-3 0) L 04/21/25 22:45 Ur Barbiturates Sc reen Negative ng/mL (N egative) 04/22/25 01:00 Valproic Acid 63.1 ug/mL (50-10 0) 04/26/25 07:59 Ur Phencyclidine S crn Negative ng/mL (N egative) 04/22/25 01:00 Ur Amphetamines Sc reen Negative ng/mL (N egative) 04/22/25 01:00 U Benzodiazepines Scrn Negative ng/mL (N egative) 04/22/25 01:00 Urine Cocaine Scre en Negative ng/mL (N egative) 04/22/25 01:00 U Marijuana (THC) Screen Negative ng/mL (N egative) 04/22/25 01:00 Vitals: Last Vital Signs Temp 97.5 F L 04/26/25 19:18 Pulse 63 04/27/25 06:00 Resp 16 04/27/25 06:00 BP 90/60 04/27/25 06:00 Pulse Ox 98 04/27/25 06:00 O2 Del Method Room Air 04/26/25 13:57 Discharge Plan Discharge Patient Disposition: Home Condition: Stable Prescriptions: New divalproex 500 mg Tablet Extended Release 24 Hr 1,000 mg PO 0900 30 Days Qty: 60 2RF Continued acetaminophen 325 mg Tablet 650 mg PO Q4H PRN (Reason: Pain) hydroxyzine HCl 50 mg tablet 50 mg PO BID PRN (Reason: anxiety) 30 Days Qty: 60 2RF risperidone 2 mg tablet 2 mg PO BEDTIME 30 Days Qty: 30 2RF Discontinued divalproex 250 mg tablet,delayed release (DR/EC) 750 mg PO QPM propranolol 10 mg tablet 5 mg PO QAM Discharge Orders: Discharge Order (Routine); Ordered 04/27/25 Ordered By: Benito Aguilar Referrals: Sd Mcgowan [Therapist, Psychology] - 04/28/25 9:45 am Discharge Diet: Usual diet Discharge Activity: Resume usual activity Patient Instructions: Opioid Safety, Patient Portal & Rei Instructions Discharge Attestations NPU Time Spent in Discharge Care*: less than 30 min Specific Discharge Activities: Specific discharge activities: educating patient, discussing with correctional case records supervisor/social workers/dc planners and documenting/other paperwork Coding Level of Care Code Acute Code for g Fwd Diagnoses Bipolar II disorder F31.81 Generalized anxiety disorder F41.1 Psychogenic vomiting with nausea F50.89 Vomiting type: psychogenic vomiting COVID-19 U07.1 Cerebral palsy, unspecified type G80.9 Cerebral palsy type: unspecified type Bereavement Z63.4 Depression F32.A Partner relational problem Z63.0 Suicidal ideation R45.851
[2025-04-27 14:03] VITALS: BP 90/60; PULSE 63; RESP 16; TEMP 36.4; O2SAT 98
--- NOTE | 2025-04-27 14:11 | DCPLANNER ---
IMM completed 04/27/2025 @ [id number] and pt was given a copy of rights.
== END 2025-04-27 15:14 | disposition home or self-care (01) | DRG 885 ==
LOC: ER 04-22 10:22 → ER IP 04-22 10:59 → NP 04-22 12:19
PROVIDERS: Physician Assistant; Admitting Provider Psychiatry & Neurology Psychiatry; Emergency Provider Emergency Medicine; Visit Provider Psychiatry & Neurology Psychiatry
DX: F31.81 Bipolar II disorder (principal); R45.851 Suicidal ideations; Z68.1 Body mass index [BMI] 19.9 or less, adult; R45.6 Violent behavior; F41.1 Generalized anxiety disorder; F84.0 Autistic disorder; R63.6 Underweight; Z63.0 Problems in relationship with spouse or partner; G80.9 Cerebral palsy, unspecified
CPT/HCPCS: 36415; 80053; 80076; 80164; 80306; 80307; 81001; 84439; 84443; 85007; 85025; 85027; 93005; 97150; 97165; 99285; J9999